=== PATIENT | female | born 1945 | race Caucasian/White ===

== ENCOUNTER → 2017-08-05 09:28 | Outpatient (CLI) | payer OTHER, SELFPAY ==
[2017-08-05 11:53] LABS: Add Manual Diff / Slide Review NO; Basophils Percent Auto 1.1 % (0-2); Eosinophils Percent Auto 2.6 % (2-4); Hematocrit 41.1 % (36-46); Hemoglobin 13.6 g/dL (12.0-16.0); Lymphocytes Percent Auto 17.6 % (25-40); Mean Corpuscular HGB Conc 33.1 % (30-36); Mean Corpuscular Hemoglobin 29.2 PG (26-34); Mean Corpuscular Volume 88.3 fL (80-100); Monocytes Percent Auto 7.5 % (3-14); Neutrophils Absolute Auto 3800 /uL (3000-5900); Neutrophils Percent Auto 71.2 % (50-75); Platelet Count 273 X10^3/uL (150-400); Red Blood Cell Count 4.66 X10^6/uL (4.0-5.2); Red Cell Distribution Width 14.2 % (11.6-14.8); White Blood Cell Count 5.4 X10^3/uL (4.5-11.0)
[2017-08-05 12:29] LABS: HEMOLYSIS < 15 (0-50); Iron 52 ug/dL (37-170)
[2017-08-05 12:40] LABS: Percent Iron Saturation 14 % (15-50); Total Iron Binding Capacity 359 ug/dL (265-497); Transferrin 300 mg/dL (206-381)
[2017-08-05 12:56] LABS: Thyroid Stimulating Hormone 3.01 uIU/mL (0.47-4.68)
[2017-08-05 13:02] LABS: Ferritin 19.4 ng/mL (11.1-264)
== END ==
PROVIDERS: PCP Family Medicine; Visit Provider Family Medicine
DX: C77.9 Secondary and unspecified malignant neoplasm of lymph node, unspecified (principal); C64.9 Malignant neoplasm of unspecified kidney, except renal pelvis; L65.9 Nonscarring hair loss, unspecified
CPT/HCPCS: 36415; 82728; 83540; 83550; 84443; 85025

== ENCOUNTER → 2017-10-11 11:18 | Outpatient (CLI) | payer OTHER, SELFPAY ==
[2017-10-11 13:24] LABS: Cholesterol 213 mg/dL (140-199); HDL Cholesterol 77 mg/dL (40-60); LDL Cholesterol Calculated 110 mg/dL (<100); Triglycerides 129 mg/dL (35-150)
== END ==
PROVIDERS: Family Provider Family Medicine; PCP Family Medicine; Visit Provider Family Medicine
DX: E78.2 Mixed hyperlipidemia (principal)
CPT/HCPCS: 36415; 80061

== ENCOUNTER → 2017-10-31 14:44 | Outpatient (CLI) | payer OTHER, SELFPAY | PROVIDERS: Family Provider Family Medicine; PCP Family Medicine; Visit Provider Family Medicine | DX: M85.851 Other specified disorders of bone density and structure, right thigh (principal); Z78.0 Asymptomatic menopausal state; E78.2 Mixed hyperlipidemia; E07.9 Disorder of thyroid, unspecified; Z87.81 Personal history of (healed) traumatic fracture | CPT/HCPCS: 77080 ==

== ENCOUNTER → 2018-01-08 12:53 | Outpatient (CLI) | payer OTHER, SELFPAY ==
[2018-01-08 14:04] LABS: Estimated Glomerular Filt Rate 44.4 mL/min (>60)
== END ==
PROVIDERS: Family Provider Family Medicine; PCP Family Medicine; Visit Provider Urology
DX: Z85.528 Personal history of other malignant neoplasm of kidney (principal)
CPT/HCPCS: 36415; 82565

== ENCOUNTER → 2018-01-10 10:01 | Outpatient (CLI) | payer OTHER, SELFPAY ==
--- NOTE | 2018-01-10 | DI.RAD.S_ITS ---
PROCEDURE: XR CHEST 2V INDICATIONS: HISTORY OF KIDNEY CANCER TECHNIQUE: 2 views of the chest were acquired. COMPARISON: None. FINDINGS: Surgical changes and devices: None. Lungs and pleura: No pleural effusions or pneumothorax. Lungs are clear. Mediastinum: Mediastinal contours are normal. Heart size is normal. Bones and chest wall: No suspicious bony abnormalities. Soft tissues appear unremarkable. IMPRESSION: A mass lesion is not found, normal for age. Dictated by: Hu Alcantar M.D. on 01/10/2018 at 11:31 Approved by: Hu Alcantar M.D. on 01/10/2018 at 11:31
--- NOTE | 2018-01-10 10:44 | DI.CT.S_ITS ---
PROCEDURE: CT ABDOMEN PELVIS W CON INDICATIONS: Left kidney cancer surveillance TECHNIQUE: After the administration of oral and intravenous contrast, 5 mm thick sections acquired from the diaphragms to the symphysis. 5 mm thick coronal and sagittal reformats were performed. For radiation dose reduction, the following was used: automated exposure control, adjustment of mA and/or kV according to patient size. COMPARISON: [facility], CT, ABDOMEN/PELVIS WITH CONTRAST, 06/10/2017, 9:28. [facility], CT, ABDOMEN/PELVIS WITH CONTRAST, 01/28/2017, 9:41. FINDINGS: Image quality: Excellent. ABDOMEN: Lung bases: Lung bases are clear. Heart size is normal. Solid organs: Liver is normal in size and enhancement. Gallbladder has been resected. Biliary system is non-dilated. Pancreas enhances normally. Spleen is normal in size and enhancement. No adrenal nodules. The right kidney is normal in size and enhancement, without hydronephrosis. The left kidney has been previously resected Peritoneum and bowel: Stomach, small bowel, and colon loops are normal in caliber and wall thickness. No free fluid or air. Nodes and vessels: No retroperitoneal or mesenteric adenopathy. Aorta and inferior vena cava are normal in caliber. Miscellaneous: No ventral hernias. PELVIS: Genitourinary: Bladder wall thickness is normal. Miscellaneous: No inguinal hernias or adenopathy. Bones: No suspicious bony lesions. No vertebral body compression fractures. IMPRESSION: Prior left nephrectomy and cholecystectomy, no sign of malignancy, normal appearing right kidney. Dictated by: Hu Alcantar M.D. on 01/10/2018 at 15:09 Approved by: Hu Alcantar M.D. on 01/10/2018 at 15:11
== END ==
PROVIDERS: PCP Family Medicine; Visit Provider Urology
DX: Z85.528 Personal history of other malignant neoplasm of kidney (principal); Z90.5 Acquired absence of kidney; Z90.49 Acquired absence of other specified parts of digestive tract
CPT/HCPCS: 71046; 74177; Q9967

== ENCOUNTER → 2018-05-05 11:59 | Outpatient (CLI) | payer OTHER, SELFPAY ==
--- NOTE | 2018-05-05 | DI.MG.S_ITS ---
BILATERAL DIGITAL SCREENING MAMMOGRAM 3D/2D WITH CAD: 05/05/2018 CLINICAL: Routine screening. Comparison is made to exams dated: 05/01/2017 mammogram, 04/02/2016 mammogram, and 03/31/2015 mammogram - [facility]. The tissue of both breasts is heterogeneously dense. This may lower the sensitivity of mammography. Current study was also evaluated with a Computer Aided Detection (CAD) system. There is a mole marker on both breasts. No significant masses, calcifications, or other findings are seen in either breast. There has been no significant interval change. IMPRESSION: NEGATIVE There is no mammographic evidence of malignancy. A 1 year screening mammogram is recommended. This exam was interpreted at Station ID: [id number]. NOTE: For mammograms, a report in lay terms will be sent to the patient. Approximately 15% of breast malignancies will not be visualized mammographically. In the management of a palpable breast mass, a negative mammogram must not discourage biopsy of a clinically suspicious lesion. Electronically Signed By: Mynor lubin/gege:05/05/2018 17:40:20 letter sent: Normal Exam ACR BI-RADS Category 1: Negative 3341F
== END ==
PROVIDERS: PCP Family Medicine; Visit Provider Family Medicine
DX: Z12.31 Encounter for screening mammogram for malignant neoplasm of breast (principal)
CPT/HCPCS: 77063; 77067

== ENCOUNTER → 2018-07-29 08:26 | Outpatient (CLI) | payer OTHER, SELFPAY ==
[2018-07-29 08:46] LABS: Add Manual Diff / Slide Review NO; Basophils Absolute Auto 0 /uL (0-100); Eosinophils Absolute Auto 100 /uL (0-450); Eosinophils Percent Auto 2.7 % (2-4); Hematocrit 38.9 % (36-46); Hemoglobin 12.8 g/dL (12.0-16.0); Lymphocytes Absolute Auto 1000 /uL (1100-4500); Lymphocytes Percent Auto 19.3 % (25-40); Mean Corpuscular HGB Conc 32.9 % (30-36); Monocytes Absolute Auto 400 /uL (0-900); Monocytes Percent Auto 7.9 % (3-14); Neutrophils Absolute Auto 3500 /uL (1500-7000); Neutrophils Percent Auto 69.1 % (50-75); Platelet Count 237 X10^3/uL (150-400); Red Blood Cell Count 4.42 X10^6/uL (4.0-5.2); Red Cell Distribution Width 13.5 % (11.6-14.8); White Blood Cell Count 5.1 X10^3/uL (4.5-11.0)
[2018-07-29 09:34] LABS: Alanine Aminotransferase 18 IU/L (9-52); Albumin 4.2 g/dL (3.5-5.0); Albumin Globulin Ratio 1.7 (1.0-2.8); Alkaline Phosphatase 48 U/L (38-126); Aspartate Aminotransferase 28 IU/L (14-36); BUN Creatinine Ratio 30.9 (6-22); Bilirubin Total 0.8 mg/dL (0.2-1.3); Blood Urea Nitrogen 34 mg/dL (7-17); Calcium 9.7 mg/dL (8.4-10.2); Carbon Dioxide 28 mmol/L (22-32); Chloride 106 mmol/L (98-107); Globulin 2.5 g/dL (1.7-4.1); Glucose 94 mg/dL (80-110); HEMOLYSIS 21 (0-50); Magnesium 2.2 mg/dL (1.6-2.3); Potassium 4.7 mmol/L (3.4-5.1); Sodium 141 mmol/L (137-145); Total Protein 6.7 g/dL (6.3-8.2)
[2018-07-29 09:40] LABS: Thyroid Stimulating Hormone 1.63 uIU/mL (0.47-4.68)
== END ==
PROVIDERS: PCP Family Medicine; Visit Provider Family Medicine
DX: E78.2 Mixed hyperlipidemia (principal); Z13.1 Encounter for screening for diabetes mellitus; Z13.6 Encounter for screening for cardiovascular disorders
CPT/HCPCS: 36415; 80053; 83735; 84443; 85025

== ENCOUNTER → 2018-10-24 10:14 | Outpatient (CLI) | payer OTHER, SELFPAY ==
[2018-10-24 11:11] LABS: Add Manual Diff / Slide Review NO; Basophils Absolute Auto 100 /uL (0-100); Basophils Percent Auto 0.9 % (0-2); Eosinophils Absolute Auto 400 /uL (0-450); Eosinophils Percent Auto 5.5 % (2-4); Hematocrit 39.9 % (36-46); Hemoglobin 13.1 g/dL (12.0-16.0); Lymphocytes Absolute Auto 1000 /uL (1100-4500); Mean Corpuscular HGB Conc 32.9 % (30-36); Mean Corpuscular Hemoglobin 28.8 PG (26-34); Mean Corpuscular Volume 87.5 fL (80-100); Monocytes Absolute Auto 500 /uL (0-900); Monocytes Percent Auto 7.2 % (3-14); Neutrophils Absolute Auto 4900 /uL (1500-7000); Neutrophils Percent Auto 71.4 % (50-75); Platelet Count 244 X10^3/uL (150-400); Red Blood Cell Count 4.56 X10^6/uL (4.0-5.2); Red Cell Distribution Width 13.5 % (11.6-14.8); White Blood Cell Count 6.9 X10^3/uL (4.5-11.0)
[2018-10-24 11:27] LABS: Alanine Aminotransferase 41 IU/L (9-52); Albumin 4.3 g/dL (3.5-5.0); Albumin Globulin Ratio 1.6 (1.0-2.8); Alkaline Phosphatase 53 U/L (38-126); Aspartate Aminotransferase 42 IU/L (14-36); Bilirubin Total 0.9 mg/dL (0.2-1.3); Blood Urea Nitrogen 36 mg/dL (7-17); Calcium 9.8 mg/dL (8.4-10.2); Carbon Dioxide 27 mmol/L (22-32); Chloride 104 mmol/L (98-107); Estimated Glomerular Filt Rate 44.3 mL/min (>60); Globulin 2.7 g/dL (1.7-4.1); Glucose 90 mg/dL (80-110); HEMOLYSIS < 15 (0-50); Lipase 342 U/L (23-300); Potassium 4.6 mmol/L (3.4-5.1); Sodium 142 mmol/L (137-145)
--- NOTE | 2018-10-24 14:04 | DI.CT.S_ITS ---
PROCEDURE: CT ABDOMEN PELVIS W CON INDICATIONS: Severe lower left abdominal pain, s/p left nephrectomy TECHNIQUE: After the administration of oral and intravenous contrast, 5 mm thick sections acquired from the diaphragms to the symphysis. 5 mm thick coronal and sagittal reformats were performed. For radiation dose reduction, the following was used: automated exposure control, adjustment of mA and/or kV according to patient size. COMPARISON: [facility], CT, CT ABDOMEN PELVIS W CON, 01/10/2018, 10:53. FINDINGS: Image quality: Excellent. ABDOMEN: Lung bases: Lung bases are clear. Heart size is normal. Solid organs: Liver is normal in size and enhancement. Gallbladder surgically absent. Biliary system is non-dilated. Pancreas enhances normally. Spleen is normal in size and enhancement. No adrenal nodules. Right kidney unremarkable without hydronephrosis. Left kidney absent. Peritoneum and bowel: Stomach, small bowel, and colon loops are normal in caliber and wall thickness. No free fluid or air. Normal appendix. No diverticulosis Nodes and vessels: No retroperitoneal or mesenteric adenopathy. Aorta and inferior vena cava are normal in caliber. Miscellaneous: No ventral hernias. PELVIS: Genitourinary: Bladder wall thickness is normal. Miscellaneous: No inguinal hernias or adenopathy. Bones: No suspicious bony lesions. No vertebral body compression fractures. Multilevel discogenic changes and spinal listhesis. Right inferior pubic ramus fracture with callus formation, chronic. IMPRESSION: Colonic diverticulosis. No evidence of acute inflammation. Normal appendix. Status post left nephrectomy. No hematoma identified. No abscess is seen. Elsewhere, no acute process. Dictated by: Jerzy Kan M.D. on 10/24/2018 at 15:49 Approved by: Jerzy Kan M.D. on 10/24/2018 at 15:54
== END ==
PROVIDERS: PCP Family Medicine; Visit Provider Family Medicine
DX: R10.32 Left lower quadrant pain (principal); Z90.5 Acquired absence of kidney; Z90.49 Acquired absence of other specified parts of digestive tract
CPT/HCPCS: 36415; 74177; 80053; 83690; 85025; Q9967

== ENCOUNTER → 2019-01-02 09:00 | Outpatient (CLI) | payer OTHER, SELFPAY ==
[2019-01-04 23:22] LABS: Adenovirus F 40/41 Not Detected (Not Detect); Astrovirus Not Detected (Not Detect); Campylobacter Not Detected (Not Detect); Clostridium difficile toxin AB Not Detected (Not Detect); Cryptosporidium Not Detected (Not Detect); Cyclospora cayetanensis Not Detected (Not Detect); Entamoeba histolytica Not Detected (Not Detect); Enteroaggregative E.coli Not Detected (Not Detect); Enteropathogenic E.coli Not Detected (Not Detect); Enterotoxigenic E.coli It/st Not Detected (Not Detect); Giardia lamblia Not Detected (Not Detect); Norovirus GI/GII Not Detected (Not Detect); Plesiomonsa shigelloides Not Detected (Not Detect); Rotavirus A Not Detected (Not Detect); Salmonella Not Detected (Not Detect); Sapovirus Not Detected (Not Detect); Shiga-like toxin-prod E.coli Not Detected (Not Detect); Shigella/Enteroinvasive E.coli Not Detected (Not Detect); Vibrio Not Detected (Not Detect); Vibrio cholerae Not Detected (Not Detect); Yersinia enterocolitica Not Detected (Not Detect)
== END ==
PROVIDERS: PCP Family Medicine; Referring Provider Family Medicine; Visit Provider Family Medicine
DX: K92.1 Melena (principal); R10.9 Unspecified abdominal pain
CPT/HCPCS: 87507

== ENCOUNTER → 2019-01-02 15:25 | Outpatient (CLI) | payer OTHER, SELFPAY ==
[2019-01-02 15:44] LABS: Add Manual Diff / Slide Review NO; Basophils Absolute Auto 100 /uL (0-100); Eosinophils Absolute Auto 100 /uL (0-450); Eosinophils Percent Auto 1.5 % (2-4); Hematocrit 39.3 % (36-46); Hemoglobin 13.2 g/dL (12.0-16.0); Lymphocytes Absolute Auto 1200 /uL (1100-4500); Lymphocytes Percent Auto 14.8 % (25-40); Mean Corpuscular HGB Conc 33.5 % (30-36); Mean Corpuscular Hemoglobin 29.2 PG (26-34); Mean Corpuscular Volume 87.2 fL (80-100); Monocytes Absolute Auto 600 /uL (0-900); Neutrophils Absolute Auto 6000 /uL (1500-7000); Neutrophils Percent Auto 75.7 % (50-75); Platelet Count 266 X10^3/uL (150-400); Red Cell Distribution Width 14.1 % (11.6-14.8); White Blood Cell Count 7.9 X10^3/uL (4.5-11.0)
[2019-01-02 15:56] LABS: Alanine Aminotransferase 29 IU/L (<35); Albumin 4.5 g/dL (3.5-5.0); Albumin Globulin Ratio 1.6 (1.0-2.8); Alkaline Phosphatase 62 U/L (38-126); Amylase 143 U/L (30-110); Aspartate Aminotransferase 35 IU/L (14-36); BUN Creatinine Ratio 18.6 (6-22); Bilirubin Total 0.7 mg/dL (0.2-1.3); Blood Urea Nitrogen 26 mg/dL (7-17); Carbon Dioxide 28 mmol/L (22-32); Chloride 104 mmol/L (98-107); Estimated Glomerular Filt Rate 37.1 mL/min (>60); Globulin 2.8 g/dL (1.7-4.1); Glucose 115 mg/dL (80-110); HEMOLYSIS < 15 (0-50); Lipase 290 U/L (23-300); Sodium 140 mmol/L (137-145); Total Protein 7.3 g/dL (6.3-8.2)
== END ==
PROVIDERS: PCP Family Medicine; Visit Provider Family Medicine
DX: K92.1 Melena (principal); R10.9 Unspecified abdominal pain
CPT/HCPCS: 36415; 80053; 82150; 83690; 85025

== ENCOUNTER → 2019-01-03 08:33 | Outpatient (CLI) | payer OTHER, SELFPAY | PROVIDERS: PCP Family Medicine; Visit Provider Family Medicine | DX: K92.1 Melena (principal); R10.9 Unspecified abdominal pain ==

== ENCOUNTER → 2019-01-22 07:50 | Outpatient (CLI) | payer OTHER, SELFPAY ==
--- NOTE | 2019-01-22 07:53 | DI.US.S_ITS ---
PROCEDURE: US ABDOMEN COMPLETE INDICATIONS: explosive diarrhea, elevated amylase TECHNIQUE: Real-time scanning was performed of the abdominal and retroperitoneal organs, with image documentation. COMPARISON: [facility], CT, CT ABDOMEN PELVIS W CON, 10/24/2018, 15:23. FINDINGS: Liver: Liver is normal in size and homogeneous in echotexture. Gallbladder: Surgically absent Biliary ducts: Intrahepatic bile ducts are non-dilated. Extrahepatic bile duct caliber measures 7 mm. Normal is 6-7 mm or less in diameter, or 10 mm or less post-cholecystectomy. Pancreas: Visualized portions of the pancreas are sonographically normal. Spleen: Spleen is normal in size and homogeneous in echotexture. Kidneys: The left kidney is surgically absent. The right kidney is normal in size and measures 9.7 cm in length. No hydronephrosis or focal right renal lesion is evident. No shadowing nephrolithiasis is present. No cystic or solid renal masses evident. The corticomedullary differentiation is well-maintained. Aorta: Visualized aorta is normal in caliber at less than 3 cm. Iliacs: Proximal common iliac arteries are normal in caliber at less than 2.5 cm. IVC: Intrahepatic inferior vena cava is patent. Miscellaneous: No free abdominal fluid. IMPRESSION: 1. Prominent common bile duct probably is within normal limits given the patient's cholecystectomy. If the liver function tests are persistently elevated or increasing, please consider MRCP for further evaluation. 2. Status post left nephrectomy. The right kidney is unremarkable. Dictated by: Vidal Regan M.D. on 01/22/2019 at 10:08 Approved by: Vidal Regan M.D. on 01/22/2019 at 10:13
== END ==
PROVIDERS: PCP Family Medicine; Visit Provider Nurse Practitioner Family
DX: R19.7 Diarrhea, unspecified (principal); R74.8 Abnormal levels of other serum enzymes; Z90.49 Acquired absence of other specified parts of digestive tract; Z90.5 Acquired absence of kidney
CPT/HCPCS: 76700

== ENCOUNTER → 2019-07-11 13:03 | Outpatient (CLI) | payer MEDICARE, SELFPAY ==
--- NOTE | 2019-07-11 | DI.MG.S_ITS ---
BILATERAL DIGITAL SCREENING MAMMOGRAM 3D/2D WITH CAD: 07/11/2019 CLINICAL: Routine screening. Comparison is made to exams dated: 05/05/2018 mammogram, 05/01/2017 mammogram, and 04/02/2016 mammogram - [facility]. There are scattered fibroglandular elements in both breasts. Current study was also evaluated with a Computer Aided Detection (CAD) system. There is a mole marker on both breasts. No significant masses, calcifications, or other findings are seen in either breast. There has been no significant interval change. IMPRESSION: NEGATIVE There is no mammographic evidence of malignancy. A 1 year screening mammogram is recommended. This exam was interpreted at Station ID: [id number]. NOTE: For mammograms, a report in lay terms will be sent to the patient. Approximately 15% of breast malignancies will not be visualized mammographically. In the management of a palpable breast mass, a negative mammogram must not discourage biopsy of a clinically suspicious lesion. Electronically Signed By: Dannie zamudio/gege:07/13/2019 08:12:43 letter sent: Normal Exam ACR BI-RADS Category 1: Negative 3341F
== END ==
PROVIDERS: PCP Family Medicine; Referring Provider Family Medicine; Visit Provider Family Medicine
DX: Z12.31 Encounter for screening mammogram for malignant neoplasm of breast (principal)
CPT/HCPCS: 77063; 77067

== ENCOUNTER → 2019-11-04 14:17 | Outpatient (CLI) | payer MEDICARE, SELFPAY ==
--- NOTE | 2019-11-04 14:18 | DI.RAD.S_ITS ---
PROCEDURE: XR DEXA AXIAL SKELETON INDICATIONS: history of fractures; post-menopausal COMPARISON: [facility], CR, XR DEXA AXIAL SKELETON, 10/31/2017, 15:17. FINDINGS: This blank DEXA report has been sent in error by the PACS system. The correct and complete report will be forthcoming in 1-2 days. Thank you for your patience and understanding. Dictated by: Romelia Juarze MD, PhD on 11/04/2019 at 16:28 Approved by: Romelia Juarez MD, PhD on 11/04/2019 at 16:29
== END ==
PROVIDERS: PCP Family Medicine; Referring Provider Family Medicine; Visit Provider Family Medicine
DX: M85.851 Other specified disorders of bone density and structure, right thigh (principal); Z78.0 Asymptomatic menopausal state; E07.9 Disorder of thyroid, unspecified; N28.9 Disorder of kidney and ureter, unspecified
CPT/HCPCS: 77080

== ENCOUNTER → 2020-02-29 13:44 | Outpatient (CLI) | payer MEDICARE, SELFPAY ==
--- NOTE | 2020-02-29 13:46 | DI.CT.S_ITS ---
PROCEDURE: CT KIDNEY URETER BLADDER (KUB) INDICATIONS: h/o renal ca, mild ckd, and microhematuria TECHNIQUE: Noncontrast 5 mm thick sections acquired from the diaphragms to the symphysis. 5 mm thick coronal and sagittal reformats were then performed. For radiation dose reduction, the following was used: automated exposure control, adjustment of mA and/or kV according to patient size. COMPARISON: [facility], CT, CT ABDOMEN PELVIS W CON, 10/24/2018, 15:23. FINDINGS: Image quality: Excellent. Lung bases: Lung bases are clear. Heart size is normal. Urinary system: Left kidney is surgically absent. No soft tissue mass is seen within left renal fossa. Right kidney is normal in size. No kidney stones. No hydronephrosis or perinephric fat stranding. Both ureters appear non-dilated throughout their expected courses. Bladder wall thickness is normal; no calcified bladder stones. Other solid organs: Liver is normal in size. Gallbladder is surgically absent. Pancreas is normal in contours. Spleen is normal in size. No adrenal nodules. Peritoneum and bowel: Unenhanced bowel loops demonstrate normal wall thickness and caliber. No free fluid or air. Colonic diverticulosis is again seen, no CT evidence of acute diverticulitis. Nodes and vessels: No retroperitoneal or mesenteric adenopathy by size criteria. Aorta and inferior vena cava are normal in caliber. Mild atherosclerotic calcifications throughout abdominal aorta is seen. Abdominal wall: No ventral hernias. Pelvis: No free pelvic fluid. No inguinal hernias or adenopathy. Uterus and bilateral adnexa show no gross abnormality. Bones: No suspicious bony lesions. No vertebral body compression fractures. Old healed fractures involving right inferior pubic ramus is seen. IMPRESSION: 1. Prior left nephrectomy. No soft tissue mass is seen in left renal fossa. 2. Normal appearing right kidney. No hydronephrosis. 3. No acute inflammatory process is seen in abdomen or pelvis. Dictated by: Diego Torres M.D. on 02/29/2020 at 14:07 Approved by: Diego Torres M.D. on 02/29/2020 at 14:15
== END ==
PROVIDERS: PCP Family Medicine; Referring Provider Specialist; Visit Provider Specialist
DX: N18.9 Chronic kidney disease, unspecified (principal); R31.29 Other microscopic hematuria; Z85.528 Personal history of other malignant neoplasm of kidney; Z90.5 Acquired absence of kidney
CPT/HCPCS: 74176

== ENCOUNTER → 2020-03-02 13:18 | Outpatient (CLI) | payer MEDICARE, SELFPAY ==
[2020-03-02 13:43] LABS: COVID19 -Nasal RAPID Negative (Negative)
== END ==
PROVIDERS: PCP Family Medicine; Visit Provider Specialist
DX: Z20.822 Contact with and (suspected) exposure to COVID-19 (principal)
CPT/HCPCS: 87635; C9803

== ENCOUNTER 2020-03-04 06:42 | Day surgery (SDC) | payer MEDICARE, SELFPAY ==
[2020-03-04] VITALS (7 sets, daily range): BP systolic 106–124; BP diastolic 51–77; PULSE 70–87; RESP 14–16; TEMP 35.8–36.5; O2SAT 95–98; BMI 15.9
--- NOTE | 2020-03-04 | DI.RAD.S_ITS ---
PROCEDURE: XR ABDOMEN MIN 2V INDICATIONS: RETROPYELOGRAM TECHNIQUE: 2 views of the abdomen were acquired. COMPARISON: [facility], CT, CT KIDNEY URETER BLADDER (KUB), 02/29/2020, 13:44. FINDINGS: Surgical changes and devices: Prior left nephrectomy. Prior cholecystectomy, with right upper quadrant cholecystectomy clips superimposed on the right renal collecting system. No mass within the collecting system or ureter is seen.,. Bowel: No pneumoperitoneum. The bowel gas pattern is normal. Soft tissues: No masses; visualized solid organ contours appear normal in size. No suspicious abdominal calcifications. Bones: No suspicious bony abnormalities. IMPRESSION: Prior left nephrectomy, normal right-sided retrograde evaluation. Dictated by: Hu Alcantar M.D. on 03/04/2020 at 14:55 Approved by: Hu Alcantar M.D. on 03/04/2020 at 14:58
[2020-03-04] MEDS: LACTATED RINGERS 1,000 ML 42 ML IV (07:28)
--- NOTE | 2020-03-04 07:47 | PM.PREOP ---
Pre-operative Note Interval Note History & Physical reviewed/Exam performed by Physician: Yes Changes to H&P: No
[2020-03-04] MEDS: CEFAZOLIN 2 GM/100 ML FROZ.PIGGY IV (07:50)
--- NOTE | 2020-03-04 08:12 | SUR.OPER ---
Lithotomy on padded OR bed, head on pillow, arms secured on padded arm boards at <90 degrees abduction. Legs secured in padded yellow fins stirrups.
[2020-03-04] MEDS: IOPAMIDOL 15 ML VIAL INJ (08:17)
[2020-03-04] MEDS: BELLADONNA/OPIUM SUPPOSITORIES 1 EACH PR (08:20)
--- NOTE | 2020-03-04 08:28 | PM.OP.1 ---
Operative Date/Time/Diagnoses Date of procedure: 03/04/20 Time of procedure: 08:28 Pre-op diagnosis: 1. Microscopic hematuria 2. CKD 3. Acquired solitary right kidney Post-op diagnosis: same Procedure & Clinicians Procedure: 1. Cystoscopy and bilateral retrograde pyelography Same procedure as scheduled: Yes Indications: 1. Microscopic hematuria 2. CKD 3. Acquired solitary right kidney Surgeon: Cm Mitchell Click Yes if Unassisted: Yes Anesthesia Type: General Operative Notes Findings: 1. Moderately severe atrophic vaginitis 2. Moderate size urethral caruncle 3. Normal urethral caliber 4. 1+ bladder trabeculation with normal appearing ureteral orifices bilaterally 5. Bilateral retrograde pyelography was without filling defect stricture or mass. Closure Type: primary Specimen(s): none sent Estimated Blood Loss (mL): 0 Blood products transfused: none Tourniquet time (min): 0 Procedure in detail: Patient was positioned in supine was administered general anesthesia. She was then repositioned semi lithotomy and the lower abdomen, genitalia, and groin were then prepped and draped in sterile fashion the 22 [place] panendoscope was passed lower urinary tract with findings as described above. A 4 [place] whistle-tip catheter was then prepared and successive left followed by right retrograde pyelography was performed. [place] images were retained for interpretation an entry in the EHR. The bladder was then drained completely and all instrumentation was removed. The patient was then repositioned in supine, awakened, and transferred to the recovery room in stable condition. Complications: none Post-operative Condition: stable Disposition: PACU Plan for aftercare: Discharge home
== END 2020-03-04 09:32 | disposition home or self-care (01) ==
PROVIDERS: PCP Family Medicine; Referring Provider Specialist; Visit Provider Specialist
PROC: (CPT 52005; principal; 2020-03-04 07:45)
DX: R31.9 Hematuria, unspecified (principal); N18.9 Chronic kidney disease, unspecified; Z85.528 Personal history of other malignant neoplasm of kidney; N95.2 Postmenopausal atrophic vaginitis; N36.2 Urethral caruncle
CPT/HCPCS: 52005; 74019; 76000; 82962; J0690; J1100; J2405; J2704; J3010

== ENCOUNTER → 2020-03-18 08:14 | Outpatient (CLI) | payer MEDICARE, SELFPAY ==
[2020-03-18 08:21] LABS: Bacteria Urine None Seen; RBC Urine None Seen (0-5/HPF); WBC Urine None Seen (0-5/HPF)
[2020-03-18 08:47] LABS: Appearance Urine UA CLEAR; Bilirubin Urine UA NEGATIVE (NEGATIVE); Color Urine UA YELLOW; Glucose Urine UA NEGATIVE (Negative); Ketones Urine UA NEGATIVE (NEGATIVE); Leukocyte Esterase Urine UA NEGATIVE (NEGATIVE); Nitrite Urine UA NEGATIVE (Negative); Occult Blood Urine UA TRACE-INTACT (Negative); Protein Urine UA NEGATIVE (Negative); Urobilinogen Urine UA 0.2 E.U./dL (0.2)
[2020-03-18 08:53] LABS: Alanine Aminotransferase 18 IU/L (<35); Albumin 4.2 g/dL (3.5-5.0); Albumin Globulin Ratio 1.6 (1.0-2.8); Alkaline Phosphatase 55 U/L (38-126); Aspartate Aminotransferase 28 IU/L (14-36); BUN Creatinine Ratio 22.9 (6-22); Bilirubin Total 1.2 mg/dL (0.2-1.3); Blood Urea Nitrogen 27 mg/dL (7-17); Calcium 9.4 mg/dL (8.4-10.2); Carbon Dioxide 33 mmol/L (22-32); Chloride 105 mmol/L (98-107); Cholesterol 203 mg/dL (140-199); Globulin 2.7 g/dL (1.7-4.1); Glucose 93 mg/dL (80-110); HDL Cholesterol 60 mg/dL (40-60); HEMOLYSIS < 15 (0-50); LDL Cholesterol Calculated 112 mg/dL (<100); Potassium 4.4 mmol/L (3.4-5.1); Sodium 141 mmol/L (137-145); Total Protein 6.9 g/dL (6.3-8.2); Triglycerides 153 mg/dL (35-150)
[2020-03-18 09:00] LABS: Culture Indicated Urine Cult Not Indicated; Urine Comments Microscopic Normal
[2020-03-18 09:13] LABS: Hematocrit 39.8 % (36-46); Hemoglobin 13.1 g/dL (12.0-16.0); Mean Corpuscular Volume 87.9 fL (80-100); Platelet Count 216 X10^3/uL (150-400); Red Blood Cell Count 4.53 X10^6/uL (4.0-5.2); Red Cell Distribution Width 13.5 % (11.6-14.8); White Blood Cell Count 8.4 X10^3/uL (4.5-11.0)
[2020-03-18 09:22] LABS: Thyroid Stimulating Hormone 1.28 uIU/mL (0.47-4.68)
== END ==
PROVIDERS: PCP Nurse Practitioner Family; Referring Provider Nurse Practitioner Family; Visit Provider Nurse Practitioner Family
DX: E03.9 Hypothyroidism, unspecified (principal); E78.2 Mixed hyperlipidemia; Z85.528 Personal history of other malignant neoplasm of kidney; Z90.5 Acquired absence of kidney
CPT/HCPCS: 36415; 80053; 80061; 81001; 84443; 85027

== ENCOUNTER → 2020-07-18 10:55 | Outpatient (CLI) | payer MEDICARE, SELFPAY ==
--- NOTE | 2020-07-18 10:56 | DI.MG.S_ITS ---
BILATERAL DIGITAL SCREENING MAMMOGRAM 3D/2D WITH CAD: 07/18/2020 CLINICAL: Routine screening. Comparison is made to exams dated: 07/11/2019 mammogram, 05/05/2018 mammogram, and 05/01/2017 mammogram - [facility]. There are scattered fibroglandular elements in both breasts. Current study was also evaluated with a Computer Aided Detection (CAD) system. There is a mole marker on both breasts. No significant masses, calcifications, or other findings are seen in either breast. There has been no significant interval change. IMPRESSION: NEGATIVE There is no mammographic evidence of malignancy. A 1 year screening mammogram is recommended. This exam was interpreted at Station ID: [id number]. NOTE: For mammograms, a report in lay terms will be sent to the patient. Approximately 15% of breast malignancies will not be visualized mammographically. In the management of a palpable breast mass, a negative mammogram must not discourage biopsy of a clinically suspicious lesion. Electronically Signed By: Dannie zamudio/gege:07/18/2020 12:51:49 letter sent: Normal Exam ACR BI-RADS Category 1: Negative 3341F
== END ==
PROVIDERS: PCP Nurse Practitioner Family; Referring Provider Nurse Practitioner Family; Visit Provider Nurse Practitioner Family
DX: Z12.31 Encounter for screening mammogram for malignant neoplasm of breast (principal); Z12.39 Encounter for other screening for malignant neoplasm of breast
CPT/HCPCS: 77063; 77067

== ENCOUNTER → 2020-08-03 08:52 | Outpatient (CLI) | payer MEDICARE, SELFPAY ==
[2020-08-03 09:48] LABS: BUN Creatinine Ratio 21.3 (6-22); Blood Urea Nitrogen 27 mg/dL (7-17); Calcium 9.5 mg/dL (8.4-10.2); Carbon Dioxide 29 mmol/L (22-32); Chloride 107 mmol/L (98-107); Cholesterol 187 mg/dL (140-199); Estimated Glomerular Filt Rate 41.2 mL/min (>60); Glucose 87 mg/dL (80-110); HDL Cholesterol 66 mg/dL (40-60); HEMOLYSIS < 15 (0-50); LDL Cholesterol Calculated 100 mg/dL (<100); Magnesium 2.2 mg/dL (1.6-2.3); Potassium 4.4 mmol/L (3.4-5.1); Sodium 141 mmol/L (137-145); Triglycerides 104 mg/dL (35-150)
== END ==
PROVIDERS: PCP Nurse Practitioner Family; Referring Provider Internal Medicine Cardiovascular Disease; Visit Provider Internal Medicine Cardiovascular Disease
DX: I44.7 Left bundle-branch block, unspecified (principal); I49.3 Ventricular premature depolarization; E78.5 Hyperlipidemia, unspecified; E03.9 Hypothyroidism, unspecified
CPT/HCPCS: 36415; 80048; 80061; 83735

== ENCOUNTER → 2020-08-06 09:12 | Outpatient (CLI) | payer MEDICARE, SELFPAY ==
[2020-08-06 11:34] LABS: COVID19 -Nasal RAPID Negative (Negative)
== END ==
PROVIDERS: PCP Nurse Practitioner Family; Referring Provider Physician Assistant; Visit Provider Physician Assistant
DX: Z01.812 Encounter for preprocedural laboratory examination (principal); Z20.822 Contact with and (suspected) exposure to COVID-19
CPT/HCPCS: 87635; C9803

== ENCOUNTER → 2020-08-08 10:44 | Outpatient (CLI) | payer MEDICARE, SELFPAY ==
--- NOTE | 2020-08-08 15:03 | PM.TREADMILL ---
Cardiac Stress Test Report Referral & Results Date Patient Seen: 08/08/20 Time Patient Seen: 15:04 Requesting provider: Garry Ambrosio Indication: LBBB Rest ECG: sinus rhtyhm with LBBB with PVC Procedure Note: After Lexiscan injection had minimal dyspnea but no chest pain No significant EKG changes after Lexiscan injection Occasional PVCs Impression: Normal Lexiscan stress test Nuclear images pending Please note: Actual ECG tracings can be found in the PACS system.
--- NOTE | 2020-08-08 18:19 | DI.NM.S_ITS ---
DATE OF SERVICE: 08/08/2020 PROCEDURE: Pharmacological perfusion study. INDICATIONS: Left bundle branch block, PVCs. RADIOPHARMACEUTICAL: 25.6 millicurie technetium-99m Myoview IV was injected at stress and 12.4 millicurie technetium-99m Myoview IV was injected at rest. This was a one day study only. CARDIAC STRESS: The patient underwent IV Lexiscan perfusion study under the supervision of an attending staff. Baseline rhythm was sinus with left bundle branch block. During stress, there were no new convincing ischemic changes. There were secondary repolarization changes. PVCs were seen without any obvious ventricular tachycardia. RAW DATA: There is significant breast shadow seen. There is increased subdiaphragmatic activity as well. Resting LV ejection fraction 63 percent and stress LV ejection fraction 75 percent. No obvious wall motion abnormalities. Resting end-diastolic volume 107 mL. TID ratio 0.94, which is within normal limits. Lung/heart ratio 0.29, which is within normal limits. MYOCARDIAL PERFUSION: 1. Please note ,this patient does not have any prone images. Stress supine and resting supine images were compared to each other. The patient has predominantly fixed, moderate size, moderate to severely decreased perfusion of anteroseptum, as well as moderate to severely decreased perfusion of base to mid inferoseptum. 2. The patient has moderate size, moderate to severely decreased perfusion of base to mid inferior wall with slight reversibility in the mid inferior wall area. 3. There was small size, mildly decreased perfusion of the anterior wall and anteroapex without any significant reversibility. CONCLUSION: I will call this study an abnormal myocardial perfusion study with predominantly fixed septal defect and anterior wall anteroapical defect as stated above, as well as basal to mid inferior wall defect with partial reversibility of mid inferior wall defect. The patient has underlying left bundle branch block. On raw data, there is significant breast shadow, as well as increased subdiaphragmatic activity. On gated study, LV function is preserved and no obvious wall motion abnormalities, which goes against the diagnosis of transmural myocardial infarction. Suspect septal defect due to left bundle branch block. Anterior wall and anteroapical defect due to breast tissue attenuation artifact and there is increased subdiaphragmatic activity causing inferior wall defect, as well. There are no prone images, which can clearly distinguish artifact versus nontransmural myocardial infarction. Overall ischemic burden is very small in the mid inferior wall. Overall, coronary artery disease cannot be ruled out in this study. Correlate clinically. HinojosaChantelle - ANDREW/jaelyn/norma doc#: [id number]/job#: [id number] dd: 08/08/2020 17:18:00 dt: 08/08/2020 17:34:00 DICTATING MD/COPIES TO: Garry Ambrosio MD COPIES MNE: EMI;
== END ==
PROVIDERS: PCP Nurse Practitioner Family; Referring Provider Internal Medicine Cardiovascular Disease; Visit Provider Internal Medicine Cardiovascular Disease
DX: R94.39 Abnormal result of other cardiovascular function study (principal); I44.7 Left bundle-branch block, unspecified; I49.3 Ventricular premature depolarization
CPT/HCPCS: 78452; 93017; A9502; J2785

== ENCOUNTER → 2020-08-12 14:45 | Outpatient (CLI) | payer MEDICARE, SELFPAY ==
--- NOTE | 2020-08-12 14:45 | DI.ECHO.S_ITS ---
[facility] +---------+ : : [address] : : : : [id number] : : : : Phone: [phone]+ Echocardiogram Report + + :Name: TIESHA ARIAS Study Date: 08/12/2020 Height: 66 in : :[facility] : Weight: 147 lb : : Gender: Female BSA: 1.8 m2 : :: 1945 Age: 75 yrs BP: 141/85 mmHg: :Reason For Study: LBBB : :Ordering Physician: Bogdan : :Lola Browning Performed By: Jose Luis Reaves : :Referring: BOGDAN BROWNING : + + Interpretation Summary The left ventricle is normal in size. The ejection fraction is estimated to be 40-45%. There is mild to moderate global hypokinesis of the left ventricle. The right ventricle is normal in size and function. No significant valvular pathology seen. The IVC is of normal diameter and collapses greater than 50% with a sniff. This suggests a low right atrial pressure of 3 mm Hg. Moderate atherosclerotic plaque(s) in the aortic arch. Procedure: A two-dimensional transthoracic echocardiogram with color flow and Doppler was performed. The study quality was technically adequate. There is no prior echocardiogram noted for this patient. The patient was in sinus rhythm with heart rates between 64-81 bpm during the exam. The patient had a bundle branch block rhythm during the exam. The patient had frequent PVCs during the exam. Left Ventricle: The left ventricle is normal in size. Proximal septal thickening is noted. There is no thrombus. Trabeculae near apex are visualized. No thrombus is observed. The ejection fraction is estimated to be 40-45%. There is mild to moderate global hypokinesis of the left ventricle. Septal motion is consistent with conduction abnormality. Diastolic parameters suggest a relaxation abnormality of the left ventricle, consistent with probable normal filling pressures. Right Ventricle: The right ventricle is normal in size and function. Atria: Both atria are normal in size. In subcostal view, an artifact seen in the right atrium. There is no Doppler evidence for an interatrial shunt. Mitral Valve: The mitral valve leaflets are slightly calcified. There is trace mitral regurgitation. Aortic Valve: The aortic valve is trileaflet. The aortic valve opens well. The aortic valve is slightly calcified. There is no aortic valve stenosis. No aortic regurgitation is present. Tricuspid Valve: The tricuspid valve is normal in structure and function. Pulmonary artery pressures cannot be estimated because of the lack of a measurable TR jet velocity but the IVC suggests a CVP of around 3 mmHg. There is trace tricuspid regurgitation. Pulmonic Valve: The pulmonic valve is not well visualized. Great Vessels: The aortic root is normal size. The ascending aorta could not be visualized. Moderate atherosclerotic plaque(s) in the aortic arch. The IVC is of normal diameter and collapses greater than 50% with a sniff. This suggests a low right atrial pressure of 3 mm Hg. Pericardium/ Pleura There is no pericardial effusion. There is no pleural effusion. MMode/2D Measurements & Calculations LVIDd: 5.1 cm LVOT diam: 2.1 cm LVIDs: 3.7 cm Ao root diam: 3.0 cm FS: 26.5 % IVSd: 0.94 cm LVPWd: 0.87 cm LV hawkins. diameter/BSA (cm/m^2): 2.9 LV sys. diameter/BSA (cm/m^2): 2.1 LA A4 area: 12.0 cm2 RA long axis: 3.6 cm LA length (vol): 3.5 cm RA area: 9.1 cm2 RA vol: 19.4 ml RA : 11.1 ml/m2 TAPSE: 2.1 cm Doppler Measurements & Calculations Ao V2 max: 96.0 cm/sec LVOT Max Deep: 74.5 cm/sec Ao V2 mean: 71.0 cm/sec LV V1 max P.2 mmHg Ao max P.7 mmHg LV V1 VTI: 15.0 cm Ao mean P.2 mmHg ROEL(I,D): 2.5 cm2 Ao V2 VTI: 20.4 cm ROEL(V,D): 2.7 cm2 sev ratio: 0.73 ROEL indexed to BSA (cm^2/m^2): 1.4 MV E max deep: 57.0 cm/sec SV(LVOT): 51.2 ml MV A max deep: 105.3 cm/sec MV E/A: 0.54 Med Peak E' Deep: 4.4 cm/sec E/E' med: 12.8 Lat Peak E' Deep: 5.9 cm/sec E/E' lat: 9.6 E/e' average: 11.2 MV dec time: 0.24 sec Reading Physician:01:03 PM
== END ==
PROVIDERS: PCP Nurse Practitioner Family; Referring Provider Internal Medicine Cardiovascular Disease; Visit Provider Internal Medicine Cardiovascular Disease
DX: I44.7 Left bundle-branch block, unspecified (principal); I70.0 Atherosclerosis of aorta
CPT/HCPCS: 93306

== ENCOUNTER → 2020-08-31 07:29 | Outpatient (CLI) | payer MEDICARE, SELFPAY ==
[2020-08-31 08:48] LABS: Blood Urea Nitrogen 25 mg/dL (7-17); Calcium 9.8 mg/dL (8.4-10.2); Carbon Dioxide 27 mmol/L (22-32); Chloride 106 mmol/L (98-107); Cholesterol 129 mg/dL (140-199); Glucose 91 mg/dL (80-110); HDL Cholesterol 69 mg/dL (40-60); HEMOLYSIS < 15 (0-50); LDL Cholesterol Calculated 44 mg/dL (<100); Potassium 4.5 mmol/L (3.4-5.1); Sodium 141 mmol/L (137-145); Triglycerides 82 mg/dL (35-150)
== END ==
PROVIDERS: PCP Nurse Practitioner Family; Referring Provider Internal Medicine Cardiovascular Disease; Visit Provider Internal Medicine Cardiovascular Disease
DX: I44.7 Left bundle-branch block, unspecified (principal); I51.9 Heart disease, unspecified; I70.90 Unspecified atherosclerosis
CPT/HCPCS: 36415; 80048; 80061

== ENCOUNTER → 2020-12-26 09:00 | Outpatient (CLI) | payer MEDICARE, SELFPAY ==
[2020-12-26 10:33] LABS: Appearance Urine UA CLEAR; Bilirubin Urine UA NEGATIVE (NEGATIVE); Color Urine UA YELLOW; Glucose Urine UA NEGATIVE (Negative); Ketones Urine UA NEGATIVE (NEGATIVE); Leukocyte Esterase Urine UA NEGATIVE (NEGATIVE); Nitrite Urine UA NEGATIVE (Negative); Occult Blood Urine UA 1+ (Negative); Protein Urine UA NEGATIVE (Negative); Specific Gravity Urine UA 1.015 (1.000-1.035); Urobilinogen Urine UA 0.2 E.U./dL (0.2)
[2020-12-26 10:35] LABS: pH Urine UA 5.5 (4.5-8.0)
[2020-12-26 10:38] LABS: Bacteria Urine None Seen; Culture Indicated Urine Cult Not Indicated; RBC Urine 1-5/HPF (0-5/HPF); WBC Urine None Seen (0-5/HPF)
[2020-12-26 10:39] LABS: Add Manual Diff / Slide Review NO; Basophils Absolute Auto 0 /uL (0-100); Basophils Percent Auto 0.9 % (0-2); Eosinophils Absolute Auto 100 /uL (0-450); Eosinophils Percent Auto 2.2 % (2-4); Hematocrit 38.9 % (36-46); Lymphocytes Absolute Auto 1000 /uL (1100-4500); Lymphocytes Percent Auto 17.9 % (25-40); Mean Corpuscular HGB Conc 33.4 % (30-36); Mean Corpuscular Hemoglobin 29.4 PG (26-34); Mean Corpuscular Volume 88.1 fL (80-100); Monocytes Absolute Auto 500 /uL (0-900); Monocytes Percent Auto 8.4 % (3-14); Neutrophils Absolute Auto 4000 /uL (1500-7000); Neutrophils Percent Auto 70.6 % (50-75); Platelet Count 208 X10^3/uL (150-400); Red Blood Cell Count 4.42 X10^6/uL (4.0-5.2); Red Cell Distribution Width 13.5 % (11.6-14.8); White Blood Cell Count 5.6 X10^3/uL (4.5-11.0)
[2020-12-26 11:14] LABS: Creatinine Urine Random 95.9 mg/dL
[2020-12-26 11:15] LABS: BUN Creatinine Ratio 16.7 (6-22); Blood Urea Nitrogen 23 mg/dL (7-17); Calcium 9.7 mg/dL (8.4-10.2); Carbon Dioxide 28 mmol/L (22-32); Chloride 104 mmol/L (98-107); Cholesterol 143 mg/dL (140-199); Estimated Glomerular Filt Rate 37.5 mL/min (>60); Glucose 83 mg/dL (80-110); HDL Cholesterol 69 mg/dL (40-60); HEMOLYSIS < 15 (0-50); LDL Cholesterol Calculated 56 mg/dL (<100); Magnesium 2.2 mg/dL (1.6-2.3); Phosphorous 3.9 mg/dL (2.8-4.1); Potassium 4.9 mmol/L (3.4-5.1); Sodium 140 mmol/L (137-145); Triglycerides 90 mg/dL (35-150); Uric Acid 7.3 mg/dL (2.5-6.2)
[2020-12-26 11:18] LABS: Microalbumi Creatinin Ratio Ur 7.2 ug/mg CR (<30); Microalbumin Urine Random 0.7 mg/dL (0-1.6)
[2020-12-26 11:30] LABS: Vitamin D 25 Hydroxy (D3) 55.2 ng/mL (30.0-100.0)
[2020-12-27 08:10] LABS: Parathyroid Hormone Int 65 pg/mL (15-65)
== END ==
PROVIDERS: PCP Nurse Practitioner Family; Referring Provider Internal Medicine Nephrology; Visit Provider Internal Medicine Nephrology
DX: N18.31 Chronic kidney disease, stage 3a (principal); I70.90 Unspecified atherosclerosis
CPT/HCPCS: 36415; 80048; 80061; 81001; 82043; 82306; 82570; 83735; 83970; 84100; 84550; 85025

== ENCOUNTER → 2021-01-09 09:15 | Outpatient (CLI) | payer MEDICARE, SELFPAY ==
[2021-01-09 13:10] LABS: Blood Urea Nitrogen 25 mg/dL (7-17); Calcium 9.6 mg/dL (8.4-10.2); Carbon Dioxide 28 mmol/L (22-32); Chloride 105 mmol/L (98-107); Estimated Glomerular Filt Rate 37.2 mL/min (>60); Glucose 72 mg/dL (80-110); HEMOLYSIS < 15 (0-50); Potassium 4.6 mmol/L (3.4-5.1); Sodium 140 mmol/L (137-145)
== END ==
PROVIDERS: PCP Nurse Practitioner Family; Referring Provider Internal Medicine Nephrology; Visit Provider Internal Medicine Nephrology
DX: N18.32 Chronic kidney disease, stage 3b (principal)
CPT/HCPCS: 36415; 80048

== ENCOUNTER → 2021-02-16 13:54 | Outpatient (CLI) | payer MEDICARE, SELFPAY ==
--- NOTE | 2021-02-16 13:56 | DI.US.S_ITS ---
PROCEDURE: US PERIPH VENOUS LOW EXTREM RT INDICATIONS: RIGHT medial ankle tenderness, swelling TECHNIQUE: Real-time imaging, as well as color and pulse Doppler interrogation, were performed of the lower extremity deep veins from the inguinal ligament to the popliteal fossa. COMPARISON: None. FINDINGS: The common femoral, femoral and popliteal veins are normally compressible, and free of intraluminal thrombus. Color and pulse Doppler demonstrate normal phasic intraluminal flow. There is normal augmentation response to distal compression maneuver. IMPRESSION: 1. No evidence of DVT in the right lower extremity. Dictated by: Neeta Thomas M.D. on 02/16/2021 at 14:29 Approved by: Neeta Thomas M.D. on 02/16/2021 at 14:30
== END ==
PROVIDERS: PCP Nurse Practitioner Family; Referring Provider Physician Assistant; Visit Provider Physician Assistant
DX: M25.571 Pain in right ankle and joints of right foot (principal); M25.471 Effusion, right ankle
CPT/HCPCS: 93971

== ENCOUNTER → 2021-04-06 10:01 | Outpatient (CLI) | payer MEDICARE, SELFPAY ==
--- NOTE | 2021-04-06 | DI.ECHO.S_ITS ---
[place]---------+ [facility] +---------+ : : [address] : [address] : : : : [id number] : : : : Phone: [phone]---------+ Echocardiogram Report + + :Name: TIESHA ARIAS Study Date: 04/06/2021 Height: 65.5 in: :[facility] ReadingLocation: Weight: 154 lb : : Gender: Female BSA: 1.8 m2 : :: 1945 Age: 76 yrs BP: 113/60 mmHg: :Reason For Study: LV dysfunction : :Ordering Physician: : :KOKO Performed By: Aniceto De Souza : :Referring: BOGDAN BROWNING : + + Interpretation Summary The left ventricle is normal in size. The ejection fraction is estimated to be 45-50%. Previous LVEF 40 to 45%. Base of the RV appears to be mildly dilated. Overall RV function is preserved. The IVC is of normal diameter and collapses greater than 50% with a sniff. This suggests a low right atrial pressure of 3 mm Hg. Procedure: A two-dimensional transthoracic echocardiogram with color flow and Doppler was performed in limited views only to assess LVEF, LV diastolic function and filling pressures. The study quality was technically adequate. Comparison is made with the echocardiogram of 08/12/2020. Most of the acoustic windows were suboptimal, but the best imaging was obtained from the apical window. The patient had a bundle branch block rhythm during the exam. The patient was in normal sinus rhythm during the exam. Left Ventricle: The left ventricle is normal in size. Proximal septal thickening is noted. There is no thrombus. The ejection fraction is estimated to be 45-50%. Septal motion is consistent with conduction abnormality. There is septal wall hypokinesis. Diastolic parameters suggest a relaxation abnormality of the left ventricle, consistent with probable normal filling pressures. Right Ventricle: Base of the RV appears to be mildly dilated. Overall RV function is preserved. Tricuspid Valve: The tricuspid valve is not well visualized. There is trace tricuspid regurgitation. Great Vessels: The IVC is of normal diameter and collapses greater than 50% with a sniff. This suggests a low right atrial pressure of 3 mm Hg. Pericardium/ Pleura There is no pericardial effusion. There is an anterior echo-free space consistent with a fat pad. There is no pleural effusion. MMode/2D Measurements & Calculations IVC diam: 1.5 cm LVLs ap4: 5.0 cm LVLd ap2: 7.0 cm LVLs ap2: 5.1 cm Doppler Measurements & Calculations MV E max deep: 51.4 cm/sec TR max deep: 181.9 cm/sec MV A max deep: 86.1 cm/sec TR max P.2 mmHg MV E/A: 0.60 Med Peak E' Deep: 5.3 cm/sec E/E' med: 9.7 Lat Peak E' Deep: 10.1 cm/sec E/E' lat: 5.1 E/e' average: 7.4 MV dec time: 0.19 sec MV P1/2t-pr_phl: 56.0 msec Reading Physician:06:05 PM
== END ==
PROVIDERS: PCP Nurse Practitioner Family; Referring Provider Internal Medicine Cardiovascular Disease; Visit Provider Internal Medicine Cardiovascular Disease
DX: I51.9 Heart disease, unspecified (principal)
CPT/HCPCS: 93306

== ENCOUNTER → 2021-06-06 09:39 | Outpatient (CLI) | payer MEDICARE, SELFPAY ==
[2021-06-06 11:15] LABS: Add Manual Diff / Slide Review NO; Basophils Absolute Auto 100 /uL (0-100); Basophils Percent Auto 0.9 % (0-2); Eosinophils Absolute Auto 100 /uL (0-450); Hematocrit 38.8 % (36-46); Hemoglobin 12.9 g/dL (12.0-16.0); Lymphocytes Absolute Auto 1000 /uL (1100-4500); Lymphocytes Percent Auto 15.9 % (25-40); Mean Corpuscular HGB Conc 33.3 % (30-36); Mean Corpuscular Hemoglobin 29.6 PG (26-34); Mean Corpuscular Volume 89.1 fL (80-100); Monocytes Absolute Auto 400 /uL (0-900); Monocytes Percent Auto 6.7 % (3-14); Neutrophils Absolute Auto 4700 /uL (1500-7000); Neutrophils Percent Auto 74.5 % (50-75); Platelet Count 238 X10^3/uL (150-400); Red Blood Cell Count 4.36 X10^6/uL (4.0-5.2); Red Cell Distribution Width 14.1 % (11.6-14.8); White Blood Cell Count 6.3 X10^3/uL (4.5-11.0)
[2021-06-06 11:57] LABS: Blood Urea Nitrogen 23 mg/dL (7-17); Calcium 9.4 mg/dL (8.4-10.2); Carbon Dioxide 30 mmol/L (22-32); Chloride 106 mmol/L (98-107); Estimated Glomerular Filt Rate 44 mL/min (>60); Glucose 75 mg/dL (80-110); HEMOLYSIS < 15 (0-50); Magnesium 2.4 mg/dL (1.6-2.3); Phosphorous 3.3 mg/dL (2.8-4.1); Potassium 4.2 mmol/L (3.4-5.1); Sodium 143 mmol/L (137-145)
[2021-06-06 12:46] LABS: Vitamin D 25 Hydroxy (D3) 62.6 ng/mL (30.0-100.0)
[2021-06-06 17:39] LABS: Creatinine Urine Random 50.2 mg/dL
[2021-06-06 18:59] LABS: Microalbumin Urine Random < 0.6 mg/dL (0-1.6)
[2021-06-07 07:44] LABS: Parathyroid Hormone Int 60 pg/mL (15-65)
== END ==
PROVIDERS: PCP Nurse Practitioner Family; Referring Provider Internal Medicine Nephrology; Visit Provider Internal Medicine Nephrology
DX: N18.31 Chronic kidney disease, stage 3a (principal)
CPT/HCPCS: 36415; 80048; 82043; 82306; 82570; 83735; 83970; 84100; 85025

== ENCOUNTER → 2021-07-03 11:15 | Outpatient (CLI) | payer MEDICARE, SELFPAY ==
--- NOTE | 2021-07-03 11:16 | DI.RAD.S_ITS ---
PROCEDURE: XR KNEE RT 3V INDICATIONS: fall, knee pain TECHNIQUE: 3 views of the knee were acquired. COMPARISON: [facility], , KNEE 3V LEFT, 04/24/2017, 14:43. FINDINGS: Bones: Mildly displaced fracture of the lateral patella. No suspicious bony lesions. Lateral compartment arthroplasty has been performed. Soft tissues: No joint effusion. No suspicious soft tissue calcifications. IMPRESSION: Patellar fracture. Dictated by: Mindy Poe M.D. on 07/03/2021 at 11:35 Approved by: Mindy Poe M.D. on 07/03/2021 at 11:36
== END ==
PROVIDERS: PCP Nurse Practitioner Family; Referring Provider Nurse Practitioner Family; Visit Provider Nurse Practitioner Family
DX: S82.091A Other fracture of right patella, initial encounter for closed fracture (principal); M25.561 Pain in right knee; W19.XXXA Unspecified fall, initial encounter
CPT/HCPCS: 73562

== ENCOUNTER → 2021-08-03 11:25 | Outpatient (CLI) | payer MEDICARE, SELFPAY ==
--- NOTE | 2021-08-03 | DI.MG.S_ITS ---
BILATERAL DIGITAL SCREENING MAMMOGRAM 3D/2D WITH CAD: 08/03/2021 CLINICAL: Routine screening. Comparison is made to exams dated: 07/18/2020 mammogram, 07/11/2019 mammogram, and 05/05/2018 mammogram - [facility]. There are scattered fibroglandular elements in both breasts. Current study was also evaluated with a Computer Aided Detection (CAD) system. There is a mole marker on both breasts. No significant masses, calcifications, or other findings are seen in either breast. There has been no significant interval change. IMPRESSION: NEGATIVE There is no mammographic evidence of malignancy. A 1 year screening mammogram is recommended. This exam was interpreted at Station ID: [id number]. NOTE: For mammograms, a report in lay terms will be sent to the patient. Approximately 15% of breast malignancies will not be visualized mammographically. In the management of a palpable breast mass, a negative mammogram must not discourage biopsy of a clinically suspicious lesion. Electronically Signed By: Iftikhar newell/gege:08/03/2021 14:34:59 letter sent: Normal Exam ACR BI-RADS Category 1: Negative [id number]
== END ==
PROVIDERS: PCP Internal Medicine; Referring Provider Internal Medicine; Visit Provider Internal Medicine
DX: Z12.31 Encounter for screening mammogram for malignant neoplasm of breast (principal)
CPT/HCPCS: 77063; 77067

== ENCOUNTER → 2021-08-28 08:39 | Outpatient (CLI) | payer MEDICARE, SELFPAY ==
[2021-08-28 10:57] LABS: BUN Creatinine Ratio 14.2 (6-22); Blood Urea Nitrogen 18 mg/dL (7-17); Calcium 9.2 mg/dL (8.4-10.2); Carbon Dioxide 27 mmol/L (22-32); Chloride 105 mmol/L (98-107); Estimated Glomerular Filt Rate 44 mL/min (>60); Glucose 79 mg/dL (80-110); HEMOLYSIS < 15 (0-50); Potassium 4.3 mmol/L (3.4-5.1); Sodium 141 mmol/L (137-145)
== END ==
PROVIDERS: PCP Internal Medicine; Referring Provider Internal Medicine Cardiovascular Disease; Visit Provider Internal Medicine Cardiovascular Disease
DX: I51.9 Heart disease, unspecified (principal); I47.2 Ventricular tachycardia; I44.7 Left bundle-branch block, unspecified
CPT/HCPCS: 36415; 80048

== ENCOUNTER → 2021-10-20 10:22 | Outpatient (CLI) | payer MEDICARE, SELFPAY ==
[2021-10-20 12:03] LABS: Cholesterol 125 mg/dL (140-199); HDL Cholesterol 58 mg/dL (40-60); LDL Cholesterol Calculated 43 mg/dL (<100); Triglycerides 122 mg/dL (35-150)
[2021-10-20 12:37] LABS: TSH w/ Reflex to FT4 2.36 uIU/mL (0.47-4.68)
== END ==
PROVIDERS: PCP Internal Medicine; Referring Provider Internal Medicine; Visit Provider Internal Medicine
DX: E03.9 Hypothyroidism, unspecified (principal); E78.2 Mixed hyperlipidemia
CPT/HCPCS: 36415; 80061; 84443

== ENCOUNTER → 2021-11-22 14:19 | Outpatient (CLI) | payer MEDICARE, SELFPAY | PROVIDERS: PCP Internal Medicine; Referring Provider Internal Medicine; Visit Provider Internal Medicine | DX: Z78.0 Asymptomatic menopausal state (principal); M81.0 Age-related osteoporosis without current pathological fracture; Z87.311 Personal history of (healed) other pathological fracture | CPT/HCPCS: 77080 ==

== ENCOUNTER → 2021-12-13 09:15 | Outpatient (CLI) | payer MEDICARE, SELFPAY ==
[2021-12-13 10:18] LABS: Add Manual Diff / Slide Review NO; Basophils Absolute Auto 100 /uL (0-100); Basophils Percent Auto 1.2 % (0-2); Eosinophils Absolute Auto 200 /uL (0-450); Eosinophils Percent Auto 2.8 % (2-4); Hematocrit 37.2 % (36-46); Hemoglobin 12.4 g/dL (12.0-16.0); Lymphocytes Absolute Auto 900 /uL (1100-4500); Lymphocytes Percent Auto 16.7 % (25-40); Mean Corpuscular HGB Conc 33.3 % (30-36); Mean Corpuscular Hemoglobin 29.1 PG (26-34); Mean Corpuscular Volume 87.1 fL (80-100); Monocytes Absolute Auto 400 /uL (0-900); Monocytes Percent Auto 7.7 % (3-14); Neutrophils Absolute Auto 4000 /uL (1500-7000); Neutrophils Percent Auto 71.6 % (50-75); Platelet Count 239 X10^3/uL (150-400); Red Blood Cell Count 4.26 X10^6/uL (4.0-5.2); Red Cell Distribution Width 13.8 % (11.6-14.8); White Blood Cell Count 5.6 X10^3/uL (4.5-11.0)
[2021-12-13 10:40] LABS: BUN Creatinine Ratio 21.9 (6-22); Blood Urea Nitrogen 25 mg/dL (7-17); Calcium 9.3 mg/dL (8.4-10.2); Carbon Dioxide 28 mmol/L (22-32); Chloride 104 mmol/L (98-107); Estimated Glomerular Filt Rate 51 mL/min (>60); Glucose 86 mg/dL (80-110); HEMOLYSIS < 15 (0-50); Magnesium 2.2 mg/dL (1.6-2.3); Phosphorous 3.7 mg/dL (2.8-4.1); Potassium 4.6 mmol/L (3.4-5.1); Sodium 138 mmol/L (137-145)
[2021-12-13 10:44] LABS: HEMOLYSIS < 15 (0-50); Iron 96 ug/dL (37-170)
[2021-12-13 10:54] LABS: Percent Iron Saturation 28 % (15-50); Total Iron Binding Capacity 338 ug/dL (265-497); Transferrin 267 mg/dL (206-381)
[2021-12-13 10:58] LABS: Vitamin D 25 Hydroxy (D3) 54.6 ng/mL (30.0-100.0)
[2021-12-13 11:15] LABS: Ferritin 29 ng/mL (11-264)
[2021-12-13 16:34] LABS: Creatinine Urine Random 59.7 mg/dL
[2021-12-13 16:41] LABS: Microalbumi Creatinin Ratio Ur 11.7 ug/mg CR (<30); Microalbumin Urine Random 0.7 mg/dL (0-1.6)
[2021-12-15 07:19] LABS: Parathyroid Hormone Int 58 pg/mL (15-65)
== END ==
PROVIDERS: PCP Internal Medicine; Referring Provider Internal Medicine Nephrology; Visit Provider Internal Medicine Nephrology
DX: N18.32 Chronic kidney disease, stage 3b (principal)
CPT/HCPCS: 36415; 80048; 82043; 82306; 82570; 82728; 83540; 83550; 83735; 83970; 84100; 85025

== ENCOUNTER → 2022-05-07 10:17 | Outpatient (CLI) | payer MEDICARE, SELFPAY ==
[2022-05-07 11:37] LABS: Cholesterol 138 mg/dL (140-199); HDL Cholesterol 59 mg/dL (40-60); LDL Cholesterol Calculated 58 mg/dL (<100); Triglycerides 104 mg/dL (35-150)
== END ==
PROVIDERS: Family Provider Internal Medicine; PCP Internal Medicine; Referring Provider Internal Medicine Cardiovascular Disease; Visit Provider Internal Medicine Cardiovascular Disease
DX: I70.90 Unspecified atherosclerosis (principal); I73.9 Peripheral vascular disease, unspecified
CPT/HCPCS: 36415; 80061

== ENCOUNTER → 2022-06-20 09:07 | Outpatient (CLI) | payer MEDICARE, SELFPAY ==
[2022-06-20 10:57] LABS: Add Manual Diff / Slide Review NO; Basophils Absolute Auto 100 /uL (0-100); Basophils Percent Auto 0.8 % (0-2); Eosinophils Absolute Auto 200 /uL (0-450); Eosinophils Percent Auto 2.9 % (2-4); Hematocrit 36.9 % (36-46); Hemoglobin 12.6 g/dL (12.0-16.0); Lymphocytes Absolute Auto 1100 /uL (1100-4500); Lymphocytes Percent Auto 17.2 % (25-40); Mean Corpuscular Hemoglobin 29.4 PG (26-34); Mean Corpuscular Volume 86.4 fL (80-100); Monocytes Absolute Auto 500 /uL (0-900); Monocytes Percent Auto 7.4 % (3-14); Neutrophils Absolute Auto 4400 /uL (1500-7000); Neutrophils Percent Auto 71.7 % (50-75); Platelet Count 226 X10^3/uL (150-400); Red Blood Cell Count 4.27 X10^6/uL (4.0-5.2); Red Cell Distribution Width 13.2 % (11.6-14.8); White Blood Cell Count 6.2 X10^3/uL (4.5-11.0)
[2022-06-20 11:48] LABS: BUN Creatinine Ratio 17.2 (6-22); Blood Urea Nitrogen 21 mg/dL (7-17); Calcium 9.3 mg/dL (8.4-10.2); Carbon Dioxide 27 mmol/L (22-32); Chloride 105 mmol/L (98-107); Estimated Glomerular Filt Rate 46 mL/min (>60); Glucose 81 mg/dL (80-110); HEMOLYSIS < 15 (0-50); Magnesium 2.2 mg/dL (1.6-2.3); Phosphorous 3.6 mg/dL (2.8-4.1); Sodium 137 mmol/L (137-145)
[2022-06-20 16:44] LABS: Creatinine Urine Random 72.8 mg/dL
[2022-06-20 16:46] LABS: Microalbumin Urine Random < 0.6 mg/dL (0-1.6)
[2022-06-20 16:57] LABS: Vitamin D 25 Hydroxy (D3) 48.7 ng/mL (30.0-100.0)
[2022-06-22 12:30] LABS: Parathyroid Hormone Int 57 pg/mL (15-65)
== END ==
PROVIDERS: Family Provider Internal Medicine; PCP Internal Medicine; Referring Provider Internal Medicine Nephrology; Visit Provider Internal Medicine Nephrology
DX: N18.31 Chronic kidney disease, stage 3a (principal)
CPT/HCPCS: 36415; 80048; 82043; 82306; 82570; 83735; 83970; 84100; 85025

== ENCOUNTER → 2022-08-06 14:44 | Outpatient (CLI) | payer MEDICARE, SELFPAY ==
--- NOTE | 2022-08-06 | DI.MG.S_ITS ---
BILATERAL DIGITAL SCREENING MAMMOGRAM 3D/2D WITH CAD: 08/06/2022 CLINICAL: Routine screening. Comparison is made to exams dated: 08/03/2021 mammogram, 07/18/2020 mammogram, and 07/11/2019 mammogram - [facility]. There are scattered areas of fibroglandular density in both breasts (category b / 25%-50% glandular tissue). Current study was also evaluated with a Computer Aided Detection (CAD) system. No significant masses, calcifications, or other findings are seen in either breast. There has been no significant interval change. IMPRESSION: NEGATIVE There is no mammographic evidence of malignancy. A 1 year screening mammogram is recommended. Based on the Tyrer Cuzick model (a risk assessment model) the patient's lifetime risk is 3.0% and her 10 year risk is 3.0%. According to the ACR, ACS, and NCCN guidelines, an annual breast MRI exam along with mammogram is recommended if the patient's lifetime risk is 20% or greater. This exam was interpreted at Station ID: [id number]. NOTE: For mammograms, a report in lay terms will be sent to the patient. Approximately 15% of breast malignancies will not be visualized mammographically. In the management of a palpable breast mass, a negative mammogram must not discourage biopsy of a clinically suspicious lesion. Electronically Signed By: El green/gege:08/06/2022 15:34:38 letter sent: Normal Exam ACR BI-RADS Category 1: Negative [id number]
== END ==
PROVIDERS: Family Provider Internal Medicine; PCP Internal Medicine; Referring Provider Internal Medicine; Visit Provider Internal Medicine
DX: Z12.31 Encounter for screening mammogram for malignant neoplasm of breast (principal)
CPT/HCPCS: 77063; 77067

== ENCOUNTER 2022-08-29 15:16 | Observation (INO) | payer MEDICARE, SELFPAY ==
[2022-08-29] VITALS (47 sets, daily range): BP systolic 109–146; BP diastolic 55–84; PULSE 69–107; RESP 13–56; TEMP 37; O2SAT 90–98; BMI 25.0
--- NOTE | 2022-08-29 15:24 | DI.RAD.S_ITS ---
PROCEDURE: XR CHEST 1V INDICATIONS: syncope, +covid TECHNIQUE: One view of the chest was acquired. COMPARISON: [facility], CR, XR CHEST 2V, 01/10/2018, 10:38. FINDINGS: Surgical changes and devices: None. Lungs and pleura: Lungs are clear. No pleural effusions or pneumothorax. Mediastinum: Mediastinal contours appear normal. Heart size is normal. Bones and chest wall: No suspicious bony lesions. Overlying soft tissues appear unremarkable. IMPRESSION: No acute cardiopulmonary disease. Dictated by: Son Calderon M.D. on 08/29/2022 at 16:21 Approved by: Son Calderon M.D. on 08/29/2022 at 16:22
--- NOTE | 2022-08-29 15:24 | DI.CT.S_ITS ---
PROCEDURE: CT HEAD/BRAIN WO CON INDICATIONS: syncope, head injury, +covid TECHNIQUE: Noncontrast 4.5 mm thick angled axial sections acquired from the foramen magnum to the vertex, with coronal and sagittal reformats. For radiation dose reduction, the following was used: automated exposure control, adjustment of mA and/or kV according to patient size. COMPARISON: None. FINDINGS: Image quality: Excellent. CSF spaces: Basal cisterns are patent. No extra-axial fluid collections. The ventricles are symmetric in size and shape. Brain: No intracranial bleeds or masses. There is cerebral volume loss for age, with resultant ventricular and sulcal prominence. There are periventricular and deep white matter chronic small vessel ischemic changes. There is intracranial internal carotid artery atherosclerosis. Areas of mild calcification can be within the brain. Skull and face: Calvarium and visualized facial bones appear intact, without suspicious lesions. Sinuses: Mild mucosal thickening can be seen within the paranasal sinuses. IMPRESSION: No acute intracranial hemorrhage is seen. No acute intracranial process is seen. Areas of mild calcification can be seen within the brain, which are nonspecific, yet likely benign. Dictated by: Jens Pichardo M.D. on 08/29/2022 at 14:39 Approved by: Jens Pichardo M.D. on 08/29/2022 at 14:40
--- NOTE | 2022-08-29 15:26 | ED.SYNCOPE ---
HPI - Syncope General Chief Complaint: Syncope Stated Complaint: Syncope/Fall Time Seen by Provider: 08/29/22 15:16 Source: patient, EMS, RN notes reviewed and old records reviewed Mode of arrival: EMS Limitations: no limitations History of Present Illness HPI narrative: This is a 77-year-old female with history of hypertension, dyslipidemia, hypothyroidism, osteoporosis, chronic kidney disease stage 3 after left nephrectomy for renal cancer, cholecystectomy and neck fusion. Patient states that she started developing fevers and cough with some clear productive sputum on Saturday. Patient did a home COVID test and tested positive along with her spouse who had symptoms the day before. She notes her bowels had been in [place] this weekend. Patient states she got a panic attack which typically includes her feeling shaky, nauseated getting an episode of diarrhea. This all occurred patient states she was headed back from the bathroom and next thing she knows she woke up on the floor. She believed had struck her head and does have some dried blood. She states her headache is improving, no acute vision changes. She denies chest pain or shortness of breath. She states productive sputum that is clear with no hemoptysis or color changes. She denies any recent syncopal episodes. No nausea or vomiting. She had diarrhea 1 time but has not had recurrent or repeated diarrheal episodes. No black or bloody stools. No abdominal back or flank pain. She denies dysuria urgency or frequency. She denies new swelling in her extremities. She is currently on Paxlovid, she states she did stop her atorvastatin for that medication. She notes she is had a left nephrectomy for renal cell carcinoma 2014 and has chronic kidney disease stage 3, she follows with Nephrology regularly. Cholecystectomy and neck fusion. Patient was seat he is allergic to codeine makes her nauseated and penicillin so yeast infections. No tobacco, no alcohol or illicit drugs. She states her tetanus is up-to-date. Dr. Fitzgerald is her primary care. Related Data Home Medications Medication Instructions Recorded Confirmed calcium citrate 315 mg 1 tab PO DAILY ##0 10/09/16 05/07/22 calcium-vitamin D3 6.25 mcg (250 unit) tablet (Citracal + Vitamin D Maximum) ferrous sulfate 142 mg (45 mg 142 mg PO BID 09/23/18 05/07/22 iron) tablet,extended release (Slow Fe) diclofenac sodium 1 % topical gel 2 g topical TID PRN 03/15/20 05/07/22 (Voltaren) magnesium oxide 500 mg capsule 500 mg PO DAILY 03/15/20 05/07/22 methylcellulose (with sugar) oral 1 tbsp PO DAILY 03/15/20 05/07/22 powder (Citrucel (sucrose) oral powder) atorvastatin 20 mg tablet 20 mg PO DAILY 09/15/20 05/07/22 lisinopril 2.5 mg tablet 2.5 mg PO DAILY 09/16/20 05/07/22 metoprolol succinate 25 mg mg PO 09/16/20 05/07/22 tablet,extended release 24 hr famotidine 20 mg tablet (Pepcid AC) 20 mg PO DAILY 10/20/21 05/07/22 dramnru-jqxdrdwavyebn-uyhhbstj 1 tab PO DAILY PRN pain 05/07/22 05/07/22 [Excedrin Migraine] biotin 1 tab PO DAILY 05/07/22 05/07/22 omega-3 fatty acids-fish oil 360 1 cap PO DAILY 05/07/22 05/07/22 mg-1,200 mg capsule (Fish Oil) Previous Rx's Medication Instructions Recorded melatonin 3 mg tablet 3 mg PO BEDTIME PRN sleep #90 tabs 08/20/17 uvqeqzal-kmb-jnbov acid 0.4 1 tab PO DAILY #90 tabs 08/20/17 mg-lycopene 300 mcg-lutein 250 mcg tablet (Centrum Silver) levothyroxine 25 mcg tablet 25 mcg PO DAILY #90 tabs 10/20/21 raloxifene 60 mg tablet 60 mg PO DAILY #90 tabs 10/20/21 nirmatrelvir 150 mg-ritonavir 100 See Rx Instructions PO PER PKG DIR 08/28/22 mg tablets in a dose pack #20 ea (Paxlovid) Allergies Allergy/AdvReac Type Severity Reaction Status Date / Time codeine Allergy Unknown NAUSEA Verified 05/07/22 07:51 erythromycin base Allergy Unknown NAUSEA Verified 05/07/22 07:51 Penicillins Allergy Unknown YEAST Verified 05/07/22 07:51 INFECTION lansoprazole AdvReac Intermediate worsened Verified 05/07/22 09:55 kidney function Review of Systems Review of Systems ROS Unobtainable: All systems reviewed & are unremarkable except as noted in HPI and below Patient History Medical History Acquired hypothyroidism Age-related osteoporosis without current pathological fracture Anemia (~2001) Arthritis Kelly's esophagus determined by endoscopy (2018) Cataracts, bilateral (~2015) Chicken pox (~1957) Coronary artery disease Diverticulosis (2018) Essential hypertension Foot pain Fractures Gallstones (~1983) GERD (gastroesophageal reflux disease) GERD without esophagitis Heavy menstrual period (~1958) History of kidney cancer (~2014) History of renal cell carcinoma Inflammatory bowel disease Knee pain, bilateral Left bundle branch block (2018) Leg cramps (~2009) Measles (~1965) Microscopic colitis Microscopic hematuria Mumps (~1970) Osteoarthritis (~2009) Painful menstrual periods (~1958) Plantar warts (~1960) Pneumonia 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 Restless legs syndrome Scoliosis (~1983) Stage 3b chronic kidney disease (CKD) Synovial cyst of popliteal space [[place]], right knee Systolic CHF, chronic Thyroid disease Vision disorder Surgical History Anesthesia History of arthroscopic knee surgery History of bursectomy History of eye surgery (~2014) History of fusion of cervical spine (~1993) History of knee replacement (~2012) History of nephrectomy (12/27/14) History of third molar tooth extraction (~1965) Macular pucker (~2015) Status post adenoidectomy (~1957) Status post cholecystectomy (~1983) Status post tubal ligation (~1983) Family History Father Heart disease Hypertension Grandmother Cancer Mother Cancer Migraines Inflammatory bowel disease Grandmother No problems noted. Social History details: (Les) household members: spouse Smoking Status: Never smoker Smoking Status: Never smoker alcohol intake frequency: holidays/special occasions only Substance Use Type: does not use Exam Narrative Exam Narrative: GEN: Patient appears in mild distress. HEAD: Patient has a laceration left posterior scalp approximately 4.6 cm in length. Does gape when pulled on, no active bleeding. No raccoon/Capellan sign. NECK: Nontender, painless range of motion, trachea midline Negative for Nexus criteria, there is no midline line tenderness, distracting injury, altered mental status, neuro deficit, recent EtOH. EYES: PERRLA, EOMI ENT: External inspection normal, trachea is midline, TM's are normal no hemotypanum, Nares are clear, no septal hematoma, no dental or oral injury, airway is normal and with normal occlusion, No bony tenderness RESP: Chest is nontender and has symmetric movement, no ecchymosis, breath sounds are normal no crackles, wheezes or rales CVS: Heart sounds are normal, no murmur noted, No JVD. ABG/GI: Nontender, nondistended. Soft, normal bowel sounds, no distention, no organomegaly, pelvic rock is negative NEURO: Oriented AOx3, neuro is grossly intact, sensation and motor is normal all 4 extremities moving, cranial nerves II through XII are intact, GCS is 15 PSYCH: Normal mood and affect SKIN: Intact, warm and dry, no crepitus and without decubitus BACK: No CVA tenderness, no vertebral tenderness, no step-off's, no crepitus EXT: Atraumatic, hips are nontender, no pedal edema, normal color and temperature, normal range of motion of extremities with normal tendon exam, 2+ pulses in all four extremities Initial Vital Signs Initial Vital Signs: Vital Signs Pulse Rate 73 08/29/22 15:26 Respiratory Rate 18 08/29/22 15:26 Blood Pressure 109/62 08/29/22 15:26 Pulse Oximetry 94 08/29/22 15:26 Oxygen Delivery Method Room Air 08/29/22 15:26 Procedures Laceration Repair Laceration 1: Site: scalp Side (If applicable): left Size (cm): 4.7 Description: linear Depth: simple, single layer and involves muscle layer Local Anesthetic: lidocaine 2% and with epi Amount of anesthesia used (mL): 8 Pre-repair: wound explored, irrigated extensively and deep structures intact Skin layer closed with: sammie (#7) Course Orders Ordered: ED Orders 08/29/22 15:20 Complete Blood Count AUTO DIFF Stat Comprehensive Metabolic Panel Stat D Dimer Stat Lactate (Lactic Acid) Stat Lipase Stat NT-proBNP (BNP-Adult 18+) Stat PTT Partial Thromboplastin Jung Stat Procalcitonin Stat Prothrombin Time INR Stat Troponin & CK Cardiac Panel Stat 08/29/22 15:24 CT head/brain wo con Stat XR chest 1V Stat EKG-12 Lead Stat 08/29/22 15:42 Covid-19 + FLU A/B + RSV - PCR Stat 08/29/22 16:02 CT abdomen pelvis w con Stat CT angio chest PE protocol Stat 08/29/22 16:15 Blood Culture Stat 08/29/22 17:42 GI Panel (Film Array) Stat Discontinued Medications Sodium Chloride (Normal Saline 0.9%) 1,000 mls @ 1,000 mls/hr IV BOLUS ONE Stop: 08/29/22 16:23 Last Infusion: 08/29/22 19:00 Dose: Infused Ondansetron HCl (Ondansetron 4 Mg/2 Ml Inj) 4 mg IV NOW ONE Stop: 08/29/22 18:33 Last Admin: 08/29/22 19:00 Dose: 4 mg Vital Signs Vital signs: Vital Signs - 8 hr 08/29/22 15:26 08/29/22 15:36 08/29/22 15:37 Pulse Rate 73 75 Respiratory Rate 18 13 Blood Pressure 109/62 121/57 L Pulse Oximetry 94 94 Oxygen Delivery Method Room Air 08/29/22 15:37 08/29/22 15:45 08/29/22 16:00 Pulse Rate 72 72 78 Respiratory Rate 17 18 32 H Blood Pressure Pulse Oximetry 94 96 97 Oxygen Delivery Method 08/29/22 16:06 08/29/22 16:06 08/29/22 16:10 Pulse Rate 72 74 Respiratory Rate 23 20 Blood Pressure 125/61 Pulse Oximetry 96 97 Oxygen Delivery Method 08/29/22 16:10 08/29/22 16:15 08/29/22 16:15 Pulse Rate 74 Respiratory Rate 17 Blood Pressure 121/58 L 126/60 Pulse Oximetry 97 Oxygen Delivery Method 08/29/22 16:20 08/29/22 16:20 08/29/22 16:25 Pulse Rate 72 71 Respiratory Rate 15 18 Blood Pressure 116/59 L Pulse Oximetry 95 93 Oxygen Delivery Method 08/29/22 16:25 08/29/22 16:30 08/29/22 16:30 Pulse Rate 75 Respiratory Rate 28 H Blood Pressure 117/57 L 124/58 L Pulse Oximetry 96 Oxygen Delivery Method 08/29/22 16:45 08/29/22 16:48 08/29/22 16:48 Pulse Rate 75 74 Respiratory Rate 25 H 18 Blood Pressure 127/61 Pulse Oximetry 95 95 Oxygen Delivery Method 08/29/22 16:50 08/29/22 16:50 08/29/22 16:55 Pulse Rate 80 Respiratory Rate 18 Blood Pressure 131/62 128/60 Pulse Oximetry 97 Oxygen Delivery Method 08/29/22 16:55 08/29/22 17:00 08/29/22 17:00 Pulse Rate 75 77 Respiratory Rate 13 17 Blood Pressure 137/67 Pulse Oximetry 96 96 Oxygen Delivery Method 08/29/22 17:05 08/29/22 17:05 08/29/22 17:10 Pulse Rate 74 71 Respiratory Rate 15 18 Blood Pressure 131/65 Pulse Oximetry 94 97 Oxygen Delivery Method 08/29/22 17:10 08/29/22 17:15 08/29/22 17:15 Pulse Rate 69 Respiratory Rate 19 Blood Pressure 137/64 132/60 Pulse Oximetry 94 Oxygen Delivery Method 08/29/22 17:20 08/29/22 17:20 08/29/22 17:25 Pulse Rate 70 Respiratory Rate 18 Blood Pressure 135/64 146/69 H Pulse Oximetry 96 Oxygen Delivery Method 08/29/22 17:25 08/29/22 17:30 08/29/22 17:30 Pulse Rate 80 90 Respiratory Rate 22 26 H Blood Pressure 120/56 L Pulse Oximetry 96 98 Oxygen Delivery Method 08/29/22 17:36 08/29/22 17:36 08/29/22 18:35 Pulse Rate 80 107 H Respiratory Rate 17 Blood Pressure 142/63 H Pulse Oximetry 97 94 Oxygen Delivery Method MDM - Syncope Lab Data 08/29/22 15:20 08/29/22 15:20 Labs: Lab Results 08/29/22 08/29/22 08/29/22 Range/Units 15:20 15:20 15:20 WBC 7.5 (4.5-11.0) X10^3/uL RBC 4.36 (4.0-5.2) X10^6/uL Hgb 12.7 (12.0-16.0) g/dL Hct 37.3 (36-46) % MCV 85.5 (80-100) fL MCH 29.2 (26-34) PG MCHC 34.1 (30-36) % RDW 13.7 (11.6-14.8) % Plt Count 192 (150-400) X10^3/uL Neut % (Auto) 76.1 H (50-75) % Lymph % (Auto) 13.0 L (25-40) % [place] % (Auto) 9.7 (3-14) % Eos % (Auto) 0.3 L (2-4) % Baso % (Auto) 0.9 (0-2) % Neut # (Auto) 5700 (7925-3565) /uL Lymph # (Auto) 1000 L (8202-9863) /uL [place] # (Auto) 700 (0-900) /uL Eos # (Auto) 0 (0-450) /uL Baso # (Auto) 100 (0-100) /uL PT 12.5 (10.1-12.7) SECONDS INR 1.1 (0.9-1.3) APTT 32 (26-36) SECONDS D-Dimer (<500) ng/ml Sodium 134 L (137-145) mmol/L Potassium 4.0 (3.4-5.1) mmol/L Chloride 101 (98-107) mmol/L Carbon Dioxide 26 (22-32) mmol/L BUN 17 (7-17) mg/dL Creatinine 1.24 H (0.52-1.04) mg/dL Estimated GFR 45 L (>60) mL/min BUN/Creatinine Ratio 13.7 (6-22) Glucose 115 H (80-110) mg/dL Lactate (0.7-2.1) mmol/L Calcium 9.0 (8.4-10.2) mg/dL Total Bilirubin 2.1 H (0.2-1.3) mg/dL AST 73 H (14-36) IU/L ALT 55 H (<35) IU/L Alkaline Phosphatase 64 (38-126) U/L Total Creatine Kinase 84 (30-135) U/L Troponin I < 0.012 (0.01-0.034) ng/mL NT-Pro-B Natriuret Pep (<450) pg/mL Total Protein 7.1 (6.3-8.2) g/dL Albumin 4.1 (3.5-5.0) g/dL Globulin 3.0 (1.7-4.1) g/dL Albumin/Globulin Ratio 1.4 (1.0-2.8) Lipase 205 (23-300) U/L Procalcitonin 0.22 (<0.5) ng/mL SARS-CoV-2 (PCR) (Negative) Influenza A (RT-PCR) (NEGATIVE) Influenza B (RT-PCR) (NEGATIVE) RSV (PCR) (Negative) 08/29/22 08/29/22 08/29/22 Range/Units 15:20 15:20 15:20 WBC (4.5-11.0) X10^3/uL RBC (4.0-5.2) X10^6/uL Hgb (12.0-16.0) g/dL Hct (36-46) % MCV (80-100) fL MCH (26-34) PG MCHC (30-36) % RDW (11.6-14.8) % Plt Count (150-400) X10^3/uL Neut % (Auto) (50-75) % Lymph % (Auto) (25-40) % [place] % (Auto) (3-14) % Eos % (Auto) (2-4) % Baso % (Auto) (0-2) % Neut # (Auto) (7879-8168) /uL Lymph # (Auto) (1337-6887) /uL [place] # (Auto) (0-900) /uL Eos # (Auto) (0-450) /uL Baso # (Auto) (0-100) /uL PT (10.1-12.7) SECONDS INR (0.9-1.3) APTT (26-36) SECONDS D-Dimer 4933 H (<500) ng/ml Sodium (137-145) mmol/L Potassium (3.4-5.1) mmol/L Chloride (98-107) mmol/L Carbon Dioxide (22-32) mmol/L BUN (7-17) mg/dL Creatinine (0.52-1.04) mg/dL Estimated GFR (>60) mL/min BUN/Creatinine Ratio (6-22) Glucose (80-110) mg/dL Lactate 1.0 (0.7-2.1) mmol/L Calcium (8.4-10.2) mg/dL Total Bilirubin (0.2-1.3) mg/dL AST (14-36) IU/L ALT (<35) IU/L Alkaline Phosphatase (38-126) U/L Total Creatine Kinase (30-135) U/L Troponin I (0.01-0.034) ng/mL NT-Pro-B Natriuret Pep 1080 H (<450) pg/mL Total Protein (6.3-8.2) g/dL Albumin (3.5-5.0) g/dL Globulin (1.7-4.1) g/dL Albumin/Globulin Ratio (1.0-2.8) Lipase (23-300) U/L Procalcitonin (<0.5) ng/mL SARS-CoV-2 (PCR) (Negative) Influenza A (RT-PCR) (NEGATIVE) Influenza B (RT-PCR) (NEGATIVE) RSV (PCR) (Negative) 08/29/22 Range/Units 15:42 WBC (4.5-11.0) X10^3/uL RBC (4.0-5.2) X10^6/uL Hgb (12.0-16.0) g/dL Hct (36-46) % MCV (80-100) fL MCH (26-34) PG MCHC (30-36) % RDW (11.6-14.8) % Plt Count (150-400) X10^3/uL Neut % (Auto) (50-75) % Lymph % (Auto) (25-40) % [place] % (Auto) (3-14) % Eos % (Auto) (2-4) % Baso % (Auto) (0-2) % Neut # (Auto) (1044-8841) /uL Lymph # (Auto) (3797-7771) /uL [place] # (Auto) (0-900) /uL Eos # (Auto) (0-450) /uL Baso # (Auto) (0-100) /uL PT (10.1-12.7) SECONDS INR (0.9-1.3) APTT (26-36) SECONDS D-Dimer (<500) ng/ml Sodium (137-145) mmol/L Potassium (3.4-5.1) mmol/L Chloride (98-107) mmol/L Carbon Dioxide (22-32) mmol/L BUN (7-17) mg/dL Creatinine (0.52-1.04) mg/dL Estimated GFR (>60) mL/min BUN/Creatinine Ratio (6-22) Glucose (80-110) mg/dL Lactate (0.7-2.1) mmol/L Calcium (8.4-10.2) mg/dL Total Bilirubin (0.2-1.3) mg/dL AST (14-36) IU/L ALT (<35) IU/L Alkaline Phosphatase (38-126) U/L Total Creatine Kinase (30-135) U/L Troponin I (0.01-0.034) ng/mL NT-Pro-B Natriuret Pep (<450) pg/mL Total Protein (6.3-8.2) g/dL Albumin (3.5-5.0) g/dL Globulin (1.7-4.1) g/dL Albumin/Globulin Ratio (1.0-2.8) Lipase (23-300) U/L Procalcitonin (<0.5) ng/mL SARS-CoV-2 (PCR) Positive H (Negative) Influenza A (RT-PCR) Flu a negative (NEGATIVE) Influenza B (RT-PCR) Flu b negative (NEGATIVE) RSV (PCR) Negative (Negative) Imaging Data CT scan - head: Radiologist's Impression: [place] [address] CT Scan Report Signed Patient: Chantelle Hinojosa MR#: [id number] : 1945 Acct:[id number] Age/Sex: 77 / F Date of Service: 08/29/22 Loc: ED Accession Number: [id number] ?? Procedure: CT head/brain wo con Ordering Provider: Maura Hughes D.O. PROCEDURE:? CT HEAD/BRAIN WO CON ? INDICATIONS:? syncope, head injury, +covid ? TECHNIQUE:? Noncontrast 4.5 mm thick angled axial sections acquired from the foramen magnum to the vertex, with coronal and sagittal reformats.? For radiation dose reduction, the following was used:? automated exposure control, adjustment of mA and/or kV according to patient size.? ? COMPARISON:? None. ? FINDINGS:? Image quality:? Excellent.? ? CSF spaces:? Basal cisterns are patent.? No extra-axial fluid collections.? The ventricles are symmetric in size and shape.? ? Brain:? No intracranial bleeds or masses.? There is cerebral volume loss for age, with resultant ventricular and sulcal prominence.? There are periventricular and deep white matter chronic small vessel ischemic changes.? There is intracranial internal carotid artery atherosclerosis.? Areas of mild calcification can be within the brain. ? Skull and face:? Calvarium and visualized facial bones appear intact, without suspicious lesions.? ? Sinuses:? Mild mucosal thickening can be seen within the paranasal sinuses. ? ? IMPRESSION:? No acute intracranial hemorrhage is seen.? ? No acute intracranial process is seen.? ? Areas of mild calcification can be seen within the brain, which are nonspecific, yet likely benign.? ? Dictated by: Jens Pichardo M.D. on 08/29/2022 at 14:39 ? ? Approved by: Jens Pichardo M.D. on 08/29/2022 at 14:40?? CT scan - chest: Radiologist's Impression: [address] [id number] Scan ReportSigned Patient: Madeline Enciso MMR#: [id number]: 07/19/1936cct:[id number]/Sex: 86 / FDate of Service: 08/29/22Loc: EDAccession Number: [id number]? ? Procedure: CT cervical spine wo con Ordering Provider: Maura Hughes D.O. PROCEDURE:? CT CERVICAL SPINE WO CON ? INDICATIONS:? fall on coumadin ? TECHNIQUE:? Noncontrast 3 mm thick sections acquired from the skull base to the T4 level.? Sagittal and coronal reformats were then constructed.? For radiation dose reduction, the following was used:? automated exposure control, adjustment of mA and/or kV according to patient size.? ? COMPARISON:? None. ? FINDINGS:? Image quality:? Excellent.? ? Bones:? No fractures or dislocations.? Visualized superior ribs are intact.? Multilevel degenerative changes are present. ? Soft tissues:? Prevertebral soft tissues are normal in thickness.? No paravertebral hematomas.? No apical pneumothoraces.? ? ? IMPRESSION:? Degenerative changes without visualized fracture. ? Dictated by: Abby Gilliam M.D. on 08/29/2022 at 15:47? ?? Approved by: Abby Gilliam M.D. on 08/29/2022 at 15:48?? CT scan - abdomen/pelvis: Radiologist's Impression: [address] [address] [address] Scan Report Signed Patient: Chantelle Hinojosa MR#: [id number] : 1945 Acct:[id number] Age/Sex: 77 / F Date of Service: 08/29/22 Loc: ED Accession Number: [id number] ?? Procedure: CT abdomen pelvis w con Ordering Provider: Maura Hughes D.O. PROCEDURE:? CT ABDOMEN PELVIS W CON ? INDICATIONS:? syncope, covid+, elevated lfts, hypotension ? TECHNIQUE:? After the administration of oral and IV contrast, axial sections were acquired from the lung bases to the pubic symphysis.? Coronal and sagittal reformats were performed.? For radiation dose reduction, the following was used:? automated exposure control, adjustment of mA and/or kV according to patient size. ? COMPARISON:? [facility], CT, CT KIDNEY URETER BLADDER (KUB), 02/29/2020, 13:44.? [facility], CT, CT ABDOMEN PELVIS W CON, 01/10/2018, 10:53.? [facility], CT, CT ANGIO CHEST PE PROTOCOL, 08/29/2022, 16:34.? [facility], CT, CT ABDOMEN PELVIS W CON, 10/24/2018, 15:23. ? FINDINGS:? Image quality:? Excellent.? ? Lung bases:? Please see separate chest CT angio findings.? ? Heart:? No significant findings. ? ? ABDOMEN: Liver:? Normal size.? Mild hepatic steatosis.? ? Gallbladder:? Surgically absent? ? Biliary ducts:? There is intrahepatic and extrahepatic biliary dilation, unchanged.? ? Pancreas:? Unremarkable.? ? Spleen:? Unremarkable.? ? Adrenal Glands:? Unremarkable.? ? Kidneys and Ureters:? Left kidney is surgically absent.? Right kidney is normal.? ? ? Stomach and Bowel:? Stomach, small bowel loops, and colon are unremarkable.? Mild diverticulosis.? No acute diverticulitis. Peritoneum:? No abnormal intraperitoneal fluid.? No free air.? ? Ventral Wall: ? No hernia.? Abdominal Nodes:? No retroperitoneal or mesenteric adenopathy by size criteria.? Vessels:? Aorta and inferior vena cava are normal in size.? ? PELVIS: Pelvic Organs:? Unremarkable.? ? Bladder:? Unremarkable.? ? Pelvic Nodes: No enlarged lymph nodes.? Miscellaneous: No inguinal hernias are seen. ? ? ? Bones:? Scoliosis.? Degenerative changes in lumbar spine.? IMPRESSION:? ? 1. No acute abnormalities in abdomen or pelvis. ? 2. There is intrahepatic and extrahepatic biliary dilation, unchanged from the last exam dated 10/24/2018.? The finding is most likely secondary to postsurgical change.? Please correlate with serum bilirubin.? If there is clinical concern for biliary obstruction further evaluation. ? 3. Mild hepatic steatosis. ? 4. Diverticulosis without diverticulitis.? ? 5. Left nephrectomy.? ? Dictated by: Son Calderon M.D. on 08/29/2022 at 17:22 ? ? Approved by: Son Calderon M.D. on 08/29/2022 at 17:28?? ECG Data Attestation: I personally reviewed and interpreted this ECG as follows: Prior ECG tracings: not available for review Interpretation: Sinus rhythm premature supraventricular complex cover left bundle-branch block. Rate of 69 IN 144 QRS of 150 QTC [address]. No acute ST elevation patient appears to have occasional paced beats. No priors for comparison MDM Narrative Medical decision making narrative: This is a 77-year-old female who tested positive for COVID earlier this week she is had fevers cough that has been productive with clear sputum. She states today she had what she describes as her usual panic attack feeling shaky, nauseated and having diarrhea, she is not had repeated episodes of diarrhea or black or bloody stools but had a syncopal episode striking head. She does take aspirin every day 2 tablets so as anticoagulated with aspirin. With EMS initial pressure was 50, then 100, then 70, patient was 115 100 systolic here had received a 250 bolus. This was continued for a full 1L bolus. Patient's pressure continued to be improved. Was able to sit on edge of bed maintain pressure. Head CT secondary to syncope patient also has scalp laceration, no acute bleed or intracranial process, areas of mild calcification seen within the brain nonspecific likely to be benign chest x-ray showed no acute change, EKG EKG showed bundle-branch block, sinus rhythm, and labs were obtained. CBC normal white count, normal hemoglobin and platelets low lymphocyte count, neutrophils 76%. Patient had dimer obtained secondary to COVID with syncopal episode was 49,000, prompting CT angio rule out pulmonary emboli, this showed changes consistent with pneumonia, no pulmonary emboli, mild mediastinal and hilar lymphadenopathy likely reactive. Sodium is 134, potassium is 4, chloride 101 CO2 is 26 BUN 17 creatinine 1.2 for which appears close to patient's baseline of 1.22 in June, glucose was 115 lactate negative, patient's bilirubin is 2.1 with an AST of 73 cm 55- lipase, troponin negative with BNP of 1080.. Procalcitonin negative. Patient had CT abdomen pelvis secondary to elevated LFTs, she has some biliary dilation unchanged from last exam in 2019 likely secondary to postsurgical change, mild hepatic steatosis diverticulosis without diverticulitis left nephrectomy no acute abnormalities noted. Patient has not been able to give a clean urine sample it has been mixed in with stool. She did have 2 episodes of diarrhea in the department and was sent for GI panel which is pending. Patient attempted to ambulate even from lying to sitting became tachycardic in the 107 range, no hypotension documented but patient's O2 sat went from 97-91%. Patient is COVID positive likely with COVID pneumonia. Her dizziness has somewhat improved but is still present. Patient is not able to ambulate well. Spoke with Dr. Cabrera, hospitalist who accepts for observation. Patient received 1 L of fluid, he asked for another 500 bolus. Patient also received Zofran here in the department. Patient does not have any hypoxia so no dexamethasone or remdesivir was initiated. She denies any abdominal pain. Discharge Plan Departure Patient Disposition: Admitted as Observation Clinical Impression: 2019 novel coronavirus-infected pneumonia (NCIP), Elevated LFTs Admit Date/Time: 08/29/22 18:38 Admit Provider: Austin Cabrera
[2022-08-29 15:34] LABS: Add Manual Diff / Slide Review NO; Basophils Absolute Auto 100 /uL (0-100); Basophils Percent Auto 0.9 % (0-2); Eosinophils Absolute Auto 0 /uL (0-450); Eosinophils Percent Auto 0.3 % (2-4); Hematocrit 37.3 % (36-46); Hemoglobin 12.7 g/dL (12.0-16.0); Lymphocytes Absolute Auto 1000 /uL (1100-4500); Mean Corpuscular HGB Conc 34.1 % (30-36); Mean Corpuscular Hemoglobin 29.2 PG (26-34); Mean Corpuscular Volume 85.5 fL (80-100); Monocytes Absolute Auto 700 /uL (0-900); Monocytes Percent Auto 9.7 % (3-14); Neutrophils Absolute Auto 5700 /uL (1500-7000); Neutrophils Percent Auto 76.1 % (50-75); Platelet Count 192 X10^3/uL (150-400); Red Blood Cell Count 4.36 X10^6/uL (4.0-5.2); Red Cell Distribution Width 13.7 % (11.6-14.8); White Blood Cell Count 7.5 X10^3/uL (4.5-11.0)
[2022-08-29 15:42] LABS: INR 1.1 (0.9-1.3); Prothrombin Time 12.5 SECONDS (10.1-12.7)
[2022-08-29 15:45] LABS: PTT Partial Thromboplastin Tim 32 SECONDS (26-36)
[2022-08-29 15:51] LABS: Alanine Aminotransferase 55 IU/L (<35); Albumin 4.1 g/dL (3.5-5.0); Albumin Globulin Ratio 1.4 (1.0-2.8); Alkaline Phosphatase 64 U/L (38-126); Aspartate Aminotransferase 73 IU/L (14-36); BUN Creatinine Ratio 13.7 (6-22); Bilirubin Total 2.1 mg/dL (0.2-1.3); Blood Urea Nitrogen 17 mg/dL (7-17); Carbon Dioxide 26 mmol/L (22-32); Chloride 101 mmol/L (98-107); Creatine Kinase 84 U/L (30-135); D Dimer 4933 ng/ml (<500); Estimated Glomerular Filt Rate 45 mL/min (>60); Glucose 115 mg/dL (80-110); Lipase 205 U/L (23-300); Sodium 134 mmol/L (137-145); Total Protein 7.1 g/dL (6.3-8.2)
[2022-08-29 15:54] LABS: HEMOLYSIS 83 (0-50)
[2022-08-29 15:57] LABS: NT-proBNP (BNP-Adult 18+) 1080 pg/mL (<450)
[2022-08-29 16:00] LABS: Troponin I < 0.012 ng/mL (0.01-0.034)
--- NOTE | 2022-08-29 16:02 | DI.CT.S_ITS ---
PROCEDURE: CT ANGIO CHEST PE PROTOCOL INDICATIONS: syncope, covid+, elevated lfts, hypotension TECHNIQUE: After the administration of intravenous contrast, 2 mm thick sections acquired from the pulmonary apices to the posterior costophrenic angles. 3-dimensional maximum intensity projection (MIP) coronal and sagittal reformats were then acquired through the thorax. For radiation dose reduction, the following was used: automated exposure control, adjustment of mA and/or kV according to patient size. COMPARISON: [facility], CT, CT ABDOMEN PELVIS W CON, 08/29/2022, 16:34. FINDINGS: Image quality: Excellent. Pulmonary arteries: Pulmonary arteries are normal in size, and demonstrate no intraluminal filling defects to suggest central pulmonary embolism. Lungs and pleura: Bilateral subpleural densities are present, compatible with atypical pneumonia. No pleural effusions or pneumothorax. Central and peripheral airways are patent. Mediastinum: Heart size is normal, without pericardial effusion. Mild mediastinal or hilar adenopathy. Thoracic aorta is normal in caliber and enhancement. Esophagus is normal in caliber, without hiatal hernia. Bones and chest wall: Scoliosis and degenerative changes in thoracic and lumbar spine. No suspicious bony lesions. Ribs and thoracic spine appear intact throughout. There is a 5 mm low-density nodule in the right thyroid lobe. No axillary or supraclavicular adenopathy. Abdomen: Left kidney is absent. Visualized upper abdominal solid organs appear normal in the early arterial phase of enhancement. IMPRESSION: 1. No evidence for pulmonary embolism. 2. Suspect mild atypical pneumonia. 3. Mild mediastinal and hilar lymphadenopathy, most likely reactive. Dictated by: Son Calderon M.D. on 08/29/2022 at 17:17 Approved by: Son Calderon M.D. on 08/29/2022 at 17:21
--- NOTE | 2022-08-29 16:02 | DI.CT.S_ITS ---
PROCEDURE: CT ABDOMEN PELVIS W CON INDICATIONS: syncope, covid+, elevated lfts, hypotension TECHNIQUE: After the administration of oral and IV contrast, axial sections were acquired from the lung bases to the pubic symphysis. Coronal and sagittal reformats were performed. For radiation dose reduction, the following was used: automated exposure control, adjustment of mA and/or kV according to patient size. COMPARISON: [facility], CT, CT KIDNEY URETER BLADDER (KUB), 02/29/2020, 13:44. [facility], CT, CT ABDOMEN PELVIS W CON, 01/10/2018, 10:53. [facility], CT, CT ANGIO CHEST PE PROTOCOL, 08/29/2022, 16:34. [facility], CT, CT ABDOMEN PELVIS W CON, 10/24/2018, 15:23. FINDINGS: Image quality: Excellent. Lung bases: Please see separate chest CT angio findings. Heart: No significant findings. ABDOMEN: Liver: Normal size. Mild hepatic steatosis. Gallbladder: Surgically absent Biliary ducts: There is intrahepatic and extrahepatic biliary dilation, unchanged. Pancreas: Unremarkable. Spleen: Unremarkable. Adrenal Glands: Unremarkable. Kidneys and Ureters: Left kidney is surgically absent. Right kidney is normal. Stomach and Bowel: Stomach, small bowel loops, and colon are unremarkable. Mild diverticulosis. No acute diverticulitis. Peritoneum: No abnormal intraperitoneal fluid. No free air. Ventral Wall: No hernia. Abdominal Nodes: No retroperitoneal or mesenteric adenopathy by size criteria. Vessels: Aorta and inferior vena cava are normal in size. PELVIS: Pelvic Organs: Unremarkable. Bladder: Unremarkable. Pelvic Nodes: No enlarged lymph nodes. Miscellaneous: No inguinal hernias are seen. Bones: Scoliosis. Degenerative changes in lumbar spine. IMPRESSION: 1. No acute abnormalities in abdomen or pelvis. 2. There is intrahepatic and extrahepatic biliary dilation, unchanged from the last exam dated 10/24/2018. The finding is most likely secondary to postsurgical change. Please correlate with serum bilirubin. If there is clinical concern for biliary obstruction further evaluation. 3. Mild hepatic steatosis. 4. Diverticulosis without diverticulitis. 5. Left nephrectomy. Dictated by: Son Calderon M.D. on 08/29/2022 at 17:22 Approved by: Son Calderon M.D. on 08/29/2022 at 17:28
[2022-08-29 16:05] LABS: Procalcitonin 0.22 ng/mL (<0.5)
--- NOTE | 2022-08-29 16:11 | PC.NURSE ---
pt blood pressure is up to 120s, per provider, slowly sitting pt up to check if BP is maintained
[2022-08-29 17:15] LABS: Influenza A - CEPHEID Flu A NEGATIVE (NEGATIVE); Influenza B - CEPHEID Flu B NEGATIVE (NEGATIVE); Respiratory Syncytial Virus Negative (Negative)
[2022-08-29 17:26] LABS: COVID-19 CEPHEID 4-PLEX PCR POSITIVE (Negative)
--- NOTE | 2022-08-29 17:48 | PC.NURSE ---
pt up to commode, states she does feel lightheaded and dizzy during this time. provider notified
[2022-08-29] MEDS: SODIUM CHLORIDE 0.9% 1,000 ML 1000 ML IV (18:35)
--- NOTE | 2022-08-29 18:36 | PC.NURSE ---
COAGULATING BATH MIXER Note - Patient stated, while ambulating, that she had pain and weakness in her legs, as well as severe nausea.
[2022-08-29] MEDS: ONDANSETRON 4 MG/2 ML INJ IV (19:00)
[2022-08-29 19:15] LABS: Campylobacter Not Detected (Not Detect); Clostridium difficile toxin AB Not Detected (Not Detect); Enteroaggregative E.coli Not Detected (Not Detect); Enteropathogenic E.coli Not Detected (Not Detect); Enterotoxigenic E.coli It/st Not Detected (Not Detect); Plesiomonsa shigelloides Not Detected (Not Detect); Salmonella Not Detected (Not Detect); Vibrio Not Detected (Not Detect); Vibrio cholerae Not Detected (Not Detect); Yersinia enterocolitica Not Detected (Not Detect)
[2022-08-29 19:16] LABS: Adenovirus F 40/41 Not Detected (Not Detect); Astrovirus Not Detected (Not Detect); Cryptosporidium Not Detected (Not Detect); Cyclospora cayetanensis Not Detected (Not Detect); Entamoeba histolytica Not Detected (Not Detect); Giardia lamblia Not Detected (Not Detect); Norovirus GI/GII Not Detected (Not Detect); Rotavirus A Not Detected (Not Detect); Sapovirus Not Detected (Not Detect); Shiga-like toxin-prod E.coli Not Detected (Not Detect); Shigella/Enteroinvasive E.coli Not Detected (Not Detect)
--- NOTE | 2022-08-29 22:37 | PM.HP.1 ---
History of Present Illness History of Present Illness Date Patient Seen: 08/29/22 Date of Onset of Symptoms: 08/27/22 Chief complaint: Syncope/Fall Narrative: The pt is a 77 yo who developed SINGH, myalgias, fevers up to 102 at home and chill who had a panic attack at home today which she does have occasionally described as feeling flushed, sudden onset of SOB, hyperventilation with tachycardia and she laid down on her bathroom floor as her covers her in ice pack completely. She did this for about a half an hour and then she went back to lay down for a little bit. She got up to go to the bathroom again and had a syncope episode. She was then brought to the ER where she was found to be + for COVID. During my interview, she was without pain, confusion, no change in vision, denied vertigo, and had a SaO2 of 94% on RA. FORMERLY [facility], [facility]–1983 Medical History Acquired hypothyroidism Age-related osteoporosis without current pathological fracture Anemia (~2001) Arthritis Kelly's esophagus determined by endoscopy (2018) Cataracts, bilateral (~2015) Chicken pox (~1957) Coronary artery disease Diverticulosis (2018) Essential hypertension Foot pain Fractures Gallstones (~1983) GERD (gastroesophageal reflux disease) GERD without esophagitis Heavy menstrual period (~1958) History of kidney cancer (~2014) History of renal cell carcinoma Inflammatory bowel disease Knee pain, bilateral Left bundle branch block (2018) Leg cramps (~2009) Measles (~1965) Microscopic colitis Microscopic hematuria Mumps (~1970) Osteoarthritis (~2009) Painful menstrual periods (~1958) Plantar warts (~1960) Pneumonia 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 Restless legs syndrome Scoliosis (~1983) Stage 3b chronic kidney disease (CKD) Synovial cyst of popliteal space [[place]], right knee Systolic CHF, chronic Thyroid disease Vision disorder Surgical History Anesthesia History of arthroscopic knee surgery History of bursectomy History of eye surgery (~2014) History of fusion of cervical spine (~1993) History of knee replacement (~2012) History of nephrectomy (12/27/14) History of third molar tooth extraction (~1965) Macular pucker (~2015) Status post adenoidectomy (~1957) Status post cholecystectomy (~1983) Status post tubal ligation (~1983) Family History Father Heart disease Hypertension Grandmother Cancer Mother Cancer Migraines Inflammatory bowel disease Grandmother No problems noted. Social History details: (Les) household members: spouse Smoking Status: Never smoker alcohol intake: former Meds Home Medications and Allergies Home Medications Medication Instructions Recorded Confirmed Type calcium citrate 315 mg 1 tab PO DAILY ##0 10/09/16 08/29/22 History calcium-vitamin D3 6.25 mcg (250 unit) tablet (Citracal + Vitamin D Maximum) melatonin 3 mg tablet 3 mg PO BEDTIME PRN sleep #90 tabs 08/20/17 08/29/22 Rx subeetms-jwy-ywtmr acid 0.4 1 tab PO DAILY #90 tabs 08/20/17 08/29/22 Rx mg-lycopene 300 mcg-lutein 250 mcg tablet (Centrum Silver) ferrous sulfate 142 mg (45 mg 142 mg PO BID 09/23/18 08/29/22 History iron) tablet,extended release (Slow Fe) diclofenac sodium 1 % topical gel 2 g topical TID PRN Pain, Mild 03/15/20 08/29/22 History (Voltaren) magnesium oxide 500 mg capsule 500 mg PO DAILY 03/15/20 08/29/22 History methylcellulose (with sugar) oral 1 tbsp PO DAILY 03/15/20 08/29/22 History powder (Citrucel (sucrose) oral powder) atorvastatin 20 mg tablet 20 mg PO DAILY 09/15/20 08/29/22 History lisinopril 2.5 mg tablet 2.5 mg PO DAILY 09/16/20 08/29/22 History metoprolol succinate 25 mg 12.5 mg PO DAILY 09/16/20 08/29/22 History tablet,extended release 24 hr famotidine 20 mg tablet (Pepcid AC) 20 mg PO DAILY 10/20/21 08/29/22 History levothyroxine 25 mcg tablet 25 mcg PO DAILY #90 tabs 10/20/21 08/29/22 Rx raloxifene 60 mg tablet 60 mg PO DAILY #90 tabs 10/20/21 08/29/22 Rx qouyahs-qiylyxndowjjs-yqzwwypi 1 tab PO DAILY PRN pain 05/07/22 08/29/22 History [Excedrin Migraine] omega-3 fatty acids-fish oil 360 1 cap PO DAILY 05/07/22 08/29/22 History mg-1,200 mg capsule (Fish Oil) nirmatrelvir 150 mg-ritonavir 100 See Rx Instructions PO PER PKG DIR 08/28/22 08/29/22 Rx mg tablets in a dose pack #20 ea (Paxlovid) Allergies Allergy/AdvReac Type Severity Reaction Status Date / Time codeine Allergy Unknown NAUSEA Verified 05/07/22 07:51 erythromycin base Allergy Unknown NAUSEA Verified 05/07/22 07:51 Penicillins Allergy Unknown YEAST Verified 05/07/22 07:51 INFECTION lansoprazole AdvReac Intermediate worsened Verified 05/07/22 09:55 kidney function Review of Systems Review of Systems Narrative: all systems were reviewed and are negative except what is listed in the HPI. Exam Vital Signs (past 8 hours): - 08/29/22 15:26 08/29/22 15:36 08/29/22 15:37 Temperature Pulse Rate 73 75 Respiratory Rate 18 13 Blood Pressure 109/62 121/57 L Pulse Oximetry 94 94 Oxygen Delivery Method Room Air Oxygen Flow Rate 08/29/22 15:37 08/29/22 15:45 08/29/22 16:00 Temperature Pulse Rate 72 72 78 Respiratory Rate 17 18 32 H Blood Pressure Pulse Oximetry 94 96 97 Oxygen Delivery Method Oxygen Flow Rate 08/29/22 16:06 08/29/22 16:06 08/29/22 16:10 Temperature Pulse Rate 72 74 Respiratory Rate 23 20 Blood Pressure 125/61 Pulse Oximetry 96 97 Oxygen Delivery Method Oxygen Flow Rate 08/29/22 16:10 08/29/22 16:15 08/29/22 16:15 Temperature Pulse Rate 74 Respiratory Rate 17 Blood Pressure 121/58 L 126/60 Pulse Oximetry 97 Oxygen Delivery Method Oxygen Flow Rate 08/29/22 16:20 08/29/22 16:20 08/29/22 16:25 Temperature Pulse Rate 72 71 Respiratory Rate 15 18 Blood Pressure 116/59 L Pulse Oximetry 95 93 Oxygen Delivery Method Oxygen Flow Rate 08/29/22 16:25 08/29/22 16:30 08/29/22 16:30 Temperature Pulse Rate 75 Respiratory Rate 28 H Blood Pressure 117/57 L 124/58 L Pulse Oximetry 96 Oxygen Delivery Method Oxygen Flow Rate 08/29/22 16:45 08/29/22 16:48 08/29/22 16:48 Temperature Pulse Rate 75 74 Respiratory Rate 25 H 18 Blood Pressure 127/61 Pulse Oximetry 95 95 Oxygen Delivery Method Oxygen Flow Rate 08/29/22 16:50 08/29/22 16:50 08/29/22 16:55 Temperature Pulse Rate 80 Respiratory Rate 18 Blood Pressure 131/62 128/60 Pulse Oximetry 97 Oxygen Delivery Method Oxygen Flow Rate 08/29/22 16:55 08/29/22 17:00 08/29/22 17:00 Temperature Pulse Rate 75 77 Respiratory Rate 13 17 Blood Pressure 137/67 Pulse Oximetry 96 96 Oxygen Delivery Method Oxygen Flow Rate 08/29/22 17:05 08/29/22 17:05 08/29/22 17:10 Temperature Pulse Rate 74 71 Respiratory Rate 15 18 Blood Pressure 131/65 Pulse Oximetry 94 97 Oxygen Delivery Method Oxygen Flow Rate 08/29/22 17:10 08/29/22 17:15 08/29/22 17:15 Temperature Pulse Rate 69 Respiratory Rate 19 Blood Pressure 137/64 132/60 Pulse Oximetry 94 Oxygen Delivery Method Oxygen Flow Rate 08/29/22 17:20 08/29/22 17:20 08/29/22 17:25 Temperature Pulse Rate 70 Respiratory Rate 18 Blood Pressure 135/64 146/69 H Pulse Oximetry 96 Oxygen Delivery Method Oxygen Flow Rate 08/29/22 17:25 08/29/22 17:30 08/29/22 17:30 Temperature Pulse Rate 80 90 Respiratory Rate 22 26 H Blood Pressure 120/56 L Pulse Oximetry 96 98 Oxygen Delivery Method Oxygen Flow Rate 08/29/22 17:36 08/29/22 17:36 08/29/22 18:35 Temperature Pulse Rate 80 107 H Respiratory Rate 17 Blood Pressure 142/63 H Pulse Oximetry 97 94 Oxygen Delivery Method Oxygen Flow Rate 08/29/22 17:40 08/29/22 17:40 08/29/22 17:45 Temperature Pulse Rate 73 Respiratory Rate 16 Blood Pressure 136/65 141/67 H Pulse Oximetry 98 Oxygen Delivery Method Oxygen Flow Rate 08/29/22 17:45 08/29/22 17:50 08/29/22 17:50 Temperature Pulse Rate 76 73 Respiratory Rate 15 18 Blood Pressure 113/57 L Pulse Oximetry 96 97 Oxygen Delivery Method Oxygen Flow Rate 08/29/22 17:55 08/29/22 17:55 08/29/22 18:00 Temperature Pulse Rate 70 Respiratory Rate 18 Blood Pressure 138/62 137/62 Pulse Oximetry 95 Oxygen Delivery Method Oxygen Flow Rate 08/29/22 18:00 08/29/22 18:05 08/29/22 18:05 Temperature Pulse Rate 71 72 Respiratory Rate 21 20 Blood Pressure 131/63 Pulse Oximetry 96 94 Oxygen Delivery Method Oxygen Flow Rate 08/29/22 18:10 08/29/22 18:10 08/29/22 18:15 Temperature Pulse Rate 69 Respiratory Rate 21 Blood Pressure 136/59 L 127/55 L Pulse Oximetry 95 Oxygen Delivery Method Oxygen Flow Rate 08/29/22 18:15 08/29/22 18:20 08/29/22 18:20 Temperature Pulse Rate 73 72 Respiratory Rate 21 20 Blood Pressure 132/60 Pulse Oximetry 95 95 Oxygen Delivery Method Oxygen Flow Rate 08/29/22 18:32 08/29/22 18:45 08/29/22 19:00 Temperature Pulse Rate 95 H 74 76 Respiratory Rate 56 H 16 21 Blood Pressure Pulse Oximetry 96 95 97 Oxygen Delivery Method Oxygen Flow Rate 08/29/22 19:15 08/29/22 19:30 08/29/22 19:45 Temperature Pulse Rate 78 70 73 Respiratory Rate 28 H 19 22 Blood Pressure Pulse Oximetry 97 93 95 Oxygen Delivery Method Oxygen Flow Rate 08/29/22 20:00 08/29/22 20:15 08/29/22 20:30 Temperature Pulse Rate 70 69 70 Respiratory Rate 22 21 20 Blood Pressure Pulse Oximetry 93 91 95 Oxygen Delivery Method Room Air Oxygen Flow Rate 08/29/22 20:45 08/29/22 21:00 08/29/22 21:15 Temperature Pulse Rate 76 94 H 82 Respiratory Rate 20 Blood Pressure Pulse Oximetry 92 90 L 95 Oxygen Delivery Method Oxygen Flow Rate 08/29/22 21:42 Temperature 98.6 F Pulse Rate 79 Respiratory Rate 18 Blood Pressure 138/84 Pulse Oximetry 94 Oxygen Delivery Method Oxygen Flow Rate 0 Oxygen Delivery Method Room Air Oxygen Flow Rate 0 Const General: cooperative, healthy appearing, comfortable and well developed Orientation: alert, awake and oriented x3 Resp Effort & Inspection: normal respiratory effort and able to speak in complete sentences Auscultation: clear to auscultation bilaterally Cardio Rate: regular rate Rhythm: regular rhythm GI Palpation: soft and no hepatosplenomegaly Auscultation: normal bowel sounds Skin Rashes: no rashes Neuro General: patient alert, patient awake and moves all extremities Objective Imaging CT scan - abdomen: My impression: diverticulosis, single kidney, CT scan - chest: My impression: no PE, diffuse infiltrates Labs 08/29/22 15:20 08/29/22 15:20 Labs: Laboratory Results - last 24 hr 08/29/22 08/29/22 08/29/22 15:20 15:20 15:20 WBC 7.5 RBC 4.36 Hgb 12.7 Hct 37.3 MCV 85.5 MCH 29.2 MCHC 34.1 RDW 13.7 Plt Count 192 Neut % (Auto) 76.1 H Lymph % (Auto) 13.0 L [place] % (Auto) 9.7 Eos % (Auto) 0.3 L Baso % (Auto) 0.9 Neut # (Auto) 5700 Lymph # (Auto) 1000 L [place] # (Auto) 700 Eos # (Auto) 0 Baso # (Auto) 100 PT 12.5 INR 1.1 APTT 32 D-Dimer Sodium 134 L Potassium 4.0 Chloride 101 Carbon Dioxide 26 BUN 17 Creatinine 1.24 H Estimated GFR 45 L BUN/Creatinine Ratio 13.7 Glucose 115 H Lactate Calcium 9.0 Total Bilirubin 2.1 H AST 73 H ALT 55 H Alkaline Phosphatase 64 Total Creatine Kinase 84 Troponin I < 0.012 NT-Pro-B Natriuret Pep Total Protein 7.1 Albumin 4.1 Globulin 3.0 Albumin/Globulin Ratio 1.4 Lipase 205 Procalcitonin 0.22 Stl C. cayetanensis PCR Stool Rotavirus (PCR) Stool Adenovirus (PCR) Stool Astrovirus (PCR) Stool Cryptosporidium PCR Stl E.coli Shiga Tox PCR St Sh/Enteroin Ecoli PCR Stool E coli O157 PCR Stl Enterotoxigenic E PCR Stool EPEC (PCR) Stl E. histolytica PCR Stool Giardia Lamblia PCR Stool Sapovirus (PCR) Stl P. shigelloides PCR St Y.enterocolitica PCR Stool Vibrio (PCR) Stl Vibrio cholerae PCR Stl Enteroaggr Ecoli PCR Stl Norovirus GI/GII PCR Campylobacter (PCR) C. difficile Tox (PCR) SARS-CoV-2 (PCR) Influenza A (RT-PCR) Influenza B (RT-PCR) RSV (PCR) Salmonella (PCR) 08/29/22 08/29/22 08/29/22 15:20 15:20 15:20 WBC RBC Hgb Hct MCV MCH MCHC RDW Plt Count Neut % (Auto) Lymph % (Auto) [place] % (Auto) Eos % (Auto) Baso % (Auto) Neut # (Auto) Lymph # (Auto) [place] # (Auto) Eos # (Auto) Baso # (Auto) PT INR APTT D-Dimer 4933 H Sodium Potassium Chloride Carbon Dioxide BUN Creatinine Estimated GFR BUN/Creatinine Ratio Glucose Lactate 1.0 Calcium Total Bilirubin AST ALT Alkaline Phosphatase Total Creatine Kinase Troponin I NT-Pro-B Natriuret Pep 1080 H Total Protein Albumin Globulin Albumin/Globulin Ratio Lipase Procalcitonin Stl C. cayetanensis PCR Stool Rotavirus (PCR) Stool Adenovirus (PCR) Stool Astrovirus (PCR) Stool Cryptosporidium PCR Stl E.coli Shiga Tox PCR St Sh/Enteroin Ecoli PCR Stool E coli O157 PCR Stl Enterotoxigenic E PCR Stool EPEC (PCR) Stl E. histolytica PCR Stool Giardia Lamblia PCR Stool Sapovirus (PCR) Stl P. shigelloides PCR St Y.enterocolitica PCR Stool Vibrio (PCR) Stl Vibrio cholerae PCR Stl Enteroaggr Ecoli PCR Stl Norovirus GI/GII PCR Campylobacter (PCR) C. difficile Tox (PCR) SARS-CoV-2 (PCR) Influenza A (RT-PCR) Influenza B (RT-PCR) RSV (PCR) Salmonella (PCR) 08/29/22 08/29/22 15:42 17:42 WBC RBC Hgb Hct MCV MCH MCHC RDW Plt Count Neut % (Auto) Lymph % (Auto) [place] % (Auto) Eos % (Auto) Baso % (Auto) Neut # (Auto) Lymph # (Auto) [place] # (Auto) Eos # (Auto) Baso # (Auto) PT INR APTT D-Dimer Sodium Potassium Chloride Carbon Dioxide BUN Creatinine Estimated GFR BUN/Creatinine Ratio Glucose Lactate Calcium Total Bilirubin AST ALT Alkaline Phosphatase Total Creatine Kinase Troponin I NT-Pro-B Natriuret Pep Total Protein Albumin Globulin Albumin/Globulin Ratio Lipase Procalcitonin Stl C. cayetanensis PCR Not detected Stool Rotavirus (PCR) Not detected Stool Adenovirus (PCR) Not detected Stool Astrovirus (PCR) Not detected Stool Cryptosporidium PCR Not detected Stl E.coli Shiga Tox PCR Not detected St Sh/Enteroin Ecoli PCR Not detected Stool E coli O157 PCR Not Reportable Stl Enterotoxigenic E PCR Not detected Stool EPEC (PCR) Not detected Stl E. histolytica PCR Not detected Stool Giardia Lamblia PCR Not detected Stool Sapovirus (PCR) Not detected Stl P. shigelloides PCR Not detected St Y.enterocolitica PCR Not detected Stool Vibrio (PCR) Not detected Stl Vibrio cholerae PCR Not detected Stl Enteroaggr Ecoli PCR Not detected Stl Norovirus GI/GII PCR Not detected Campylobacter (PCR) Not detected C. difficile Tox (PCR) Not detected SARS-CoV-2 (PCR) Positive H Influenza A (RT-PCR) Flu a negative Influenza B (RT-PCR) Flu b negative RSV (PCR) Negative Salmonella (PCR) Not detected Assessment & Plan Assessment & Plan narrative: COVID +- will start the pt on Decadron 6 mg daily, supportive care with mucinex q12 prn, albuterol breathing txs, toradol and tylenol for pain or fevers, continue to monitor, currently on RA, stable oxygenation. DIscussed CT scan finding with the pt. THe pt cotton shave elevated D-dimer but CT scan is negative for PE, most likely related to the COVID infection 2. Syncope- most likely related to the COVID infection, will monitor overnight and monitor for neuro changes, CT head reviewed and is normal. Normally the pt is very mobile and active. 3. CKD stage III- Cr is currentl 1.4 which appears to be her baseline, repeat in am. No IVF at this time in light of the elevated BNP, COVID-19 Result date/Date tested (Pos, Neg/Pending): 08/29/22 Quality VTE Deep Vein Thrombosis/Pulmonary Embolism Present on Admission: No
[2022-08-29] MEDS: AZITHROMYCIN 250 MG TABLET 500 MG PO (23:04)
--- NOTE | 2022-08-29 23:33 | PC.NURSE ---
2137 Pt. admitted to room 222, oriented to her room. Encouraged to call for assistance when she need to get up to the bathroom. Call light with reached & bed alarm activated. Will continue plan of care & monitor.
[2022-08-30] MEDS: ONDANSETRON 4 MG/2 ML INJ IV (00:39)
[2022-08-30] MEDS: SODIUM CHLORIDE 0.9% FLUSH 10 ML IV ×2 (00:39→08:50)
--- NOTE | 2022-08-30 00:55 | CM.MNRNOTE ---
Watery stool, pt. requesting Imodium. message sent to Dr. Tirado.
[2022-08-30 02:26] VITALS: O2SAT 94
[2022-08-30 04:00] VITALS: BP 119/60; PULSE 81; RESP 18; TEMP 37.2; O2SAT 96
[2022-08-30 06:00] VITALS: O2SAT 96
[2022-08-30 06:29] LABS: Add Manual Diff / Slide Review NO; Basophils Absolute Auto 0 /uL (0-100); Basophils Percent Auto 0.1 % (0-2); Eosinophils Absolute Auto 0 /uL (0-450); Eosinophils Percent Auto 0.2 % (2-4); Hematocrit 36.8 % (36-46); Hemoglobin 12.4 g/dL (12.0-16.0); Lymphocytes Absolute Auto 700 /uL (1100-4500); Lymphocytes Percent Auto 7.9 % (25-40); Mean Corpuscular HGB Conc 33.6 % (30-36); Mean Corpuscular Hemoglobin 28.9 PG (26-34); Mean Corpuscular Volume 86.1 fL (80-100); Monocytes Absolute Auto 700 /uL (0-900); Monocytes Percent Auto 8.2 % (3-14); Neutrophils Absolute Auto 7100 /uL (1500-7000); Neutrophils Percent Auto 83.6 % (50-75); Platelet Count 179 X10^3/uL (150-400); Red Blood Cell Count 4.28 X10^6/uL (4.0-5.2); Red Cell Distribution Width 13.5 % (11.6-14.8); White Blood Cell Count 8.6 X10^3/uL (4.5-11.0)
[2022-08-30 06:34] LABS: BUN Creatinine Ratio 12.6 (6-22); Blood Urea Nitrogen 15 mg/dL (7-17); Calcium 8.3 mg/dL (8.4-10.2); Carbon Dioxide 25 mmol/L (22-32); Chloride 104 mmol/L (98-107); Estimated Glomerular Filt Rate 48 mL/min (>60); Glucose 100 mg/dL (80-110); HEMOLYSIS < 15 (0-50); Potassium 3.5 mmol/L (3.4-5.1); Sodium 136 mmol/L (137-145)
--- NOTE | 2022-08-30 07:45 | P.PN_ITS ---
Exam Vital Signs (past 8 hours): - 08/30/22 02:26 08/30/22 04:00 08/30/22 06:00 Temperature 99.0 F Pulse Rate 81 Respiratory Rate 18 Blood Pressure 119/60 Pulse Oximetry 94 96 96 Oxygen Delivery Method Room Air Room Air Oxygen Flow Rate 0 Oxygen Delivery Method Room Air Oxygen Flow Rate 0 Narrative Exam Narrative: GEN: no acute distress HEENT: moist mucous membranes, PERRL NECK: trachea midline, no JVD CV: regular rate and rhythm, no murmurs PULM: clear bilaterally ABD: soft, nontender, nondistended, no organomegaly EXT: warm and well perfused with no edema NEURO: awake, alert, oriented, no focal deficits Objective Labs 08/30/22 05:10 08/30/22 05:10 Labs: Laboratory Results - last 24 hr 08/29/22 08/29/22 08/29/22 15:20 15:20 15:20 WBC 7.5 RBC 4.36 Hgb 12.7 Hct 37.3 MCV 85.5 MCH 29.2 MCHC 34.1 RDW 13.7 Plt Count 192 Neut % (Auto) 76.1 H Lymph % (Auto) 13.0 L Stewart % (Auto) 9.7 Eos % (Auto) 0.3 L Baso % (Auto) 0.9 Neut # (Auto) 5700 Lymph # (Auto) 1000 L Stewart # (Auto) 700 Eos # (Auto) 0 Baso # (Auto) 100 PT 12.5 INR 1.1 APTT 32 D-Dimer Sodium 134 L Potassium 4.0 Chloride 101 Carbon Dioxide 26 BUN 17 Creatinine 1.24 H Estimated GFR 45 L BUN/Creatinine Ratio 13.7 Glucose 115 H Lactate Calcium 9.0 Total Bilirubin 2.1 H AST 73 H ALT 55 H Alkaline Phosphatase 64 Total Creatine Kinase 84 Troponin I < 0.012 NT-Pro-B Natriuret Pep Total Protein 7.1 Albumin 4.1 Globulin 3.0 Albumin/Globulin Ratio 1.4 Lipase 205 Procalcitonin 0.22 Stl C. cayetanensis PCR Stool Rotavirus (PCR) Stool Adenovirus (PCR) Stool Astrovirus (PCR) Stool Cryptosporidium PCR Stl E.coli Shiga Tox PCR St Sh/Enteroin Ecoli PCR Stool E coli O157 PCR Stl Enterotoxigenic E PCR Stool EPEC (PCR) Stl E. histolytica PCR Stool Giardia Lamblia PCR Stool Sapovirus (PCR) Stl P. shigelloides PCR St Y.enterocolitica PCR Stool Vibrio (PCR) Stl Vibrio cholerae PCR Stl Enteroaggr Ecoli PCR Stl Norovirus GI/GII PCR Campylobacter (PCR) C. difficile Tox (PCR) SARS-CoV-2 (PCR) Influenza A (RT-PCR) Influenza B (RT-PCR) RSV (PCR) Salmonella (PCR) 08/29/22 08/29/22 08/29/22 15:20 15:20 15:20 WBC RBC Hgb Hct MCV MCH MCHC RDW Plt Count Neut % (Auto) Lymph % (Auto) Stewart % (Auto) Eos % (Auto) Baso % (Auto) Neut # (Auto) Lymph # (Auto) Stewart # (Auto) Eos # (Auto) Baso # (Auto) PT INR APTT D-Dimer 4933 H Sodium Potassium Chloride Carbon Dioxide BUN Creatinine Estimated GFR BUN/Creatinine Ratio Glucose Lactate 1.0 Calcium Total Bilirubin AST ALT Alkaline Phosphatase Total Creatine Kinase Troponin I NT-Pro-B Natriuret Pep 1080 H Total Protein Albumin Globulin Albumin/Globulin Ratio Lipase Procalcitonin Stl C. cayetanensis PCR Stool Rotavirus (PCR) Stool Adenovirus (PCR) Stool Astrovirus (PCR) Stool Cryptosporidium PCR Stl E.coli Shiga Tox PCR St Sh/Enteroin Ecoli PCR Stool E coli O157 PCR Stl Enterotoxigenic E PCR Stool EPEC (PCR) Stl E. histolytica PCR Stool Giardia Lamblia PCR Stool Sapovirus (PCR) Stl P. shigelloides PCR St Y.enterocolitica PCR Stool Vibrio (PCR) Stl Vibrio cholerae PCR Stl Enteroaggr Ecoli PCR Stl Norovirus GI/GII PCR Campylobacter (PCR) C. difficile Tox (PCR) SARS-CoV-2 (PCR) Influenza A (RT-PCR) Influenza B (RT-PCR) RSV (PCR) Salmonella (PCR) 08/29/22 08/29/22 08/30/22 15:42 17:42 05:10 WBC 8.6 RBC 4.28 Hgb 12.4 Hct 36.8 MCV 86.1 MCH 28.9 MCHC 33.6 RDW 13.5 Plt Count 179 Neut % (Auto) 83.6 H Lymph % (Auto) 7.9 L Stewart % (Auto) 8.2 Eos % (Auto) 0.2 L Baso % (Auto) 0.1 Neut # (Auto) 7100 H Lymph # (Auto) 700 L Stewart # (Auto) 700 Eos # (Auto) 0 Baso # (Auto) 0 PT INR APTT D-Dimer Sodium Potassium Chloride Carbon Dioxide BUN Creatinine Estimated GFR BUN/Creatinine Ratio Glucose Lactate Calcium Total Bilirubin AST ALT Alkaline Phosphatase Total Creatine Kinase Troponin I NT-Pro-B Natriuret Pep Total Protein Albumin Globulin Albumin/Globulin Ratio Lipase Procalcitonin Stl C. cayetanensis PCR Not detected Stool Rotavirus (PCR) Not detected Stool Adenovirus (PCR) Not detected Stool Astrovirus (PCR) Not detected Stool Cryptosporidium PCR Not detected Stl E.coli Shiga Tox PCR Not detected St Sh/Enteroin Ecoli PCR Not detected Stool E coli O157 PCR Not Reportable Stl Enterotoxigenic E PCR Not detected Stool EPEC (PCR) Not detected Stl E. histolytica PCR Not detected Stool Giardia Lamblia PCR Not detected Stool Sapovirus (PCR) Not detected Stl P. shigelloides PCR Not detected St Y.enterocolitica PCR Not detected Stool Vibrio (PCR) Not detected Stl Vibrio cholerae PCR Not detected Stl Enteroaggr Ecoli PCR Not detected Stl Norovirus GI/GII PCR Not detected Campylobacter (PCR) Not detected C. difficile Tox (PCR) Not detected SARS-CoV-2 (PCR) Positive H Influenza A (RT-PCR) Flu a negative Influenza B (RT-PCR) Flu b negative RSV (PCR) Negative Salmonella (PCR) Not detected 08/30/22 05:10 WBC RBC Hgb Hct MCV MCH MCHC RDW Plt Count Neut % (Auto) Lymph % (Auto) Stewart % (Auto) Eos % (Auto) Baso % (Auto) Neut # (Auto) Lymph # (Auto) Stewart # (Auto) Eos # (Auto) Baso # (Auto) PT INR APTT D-Dimer Sodium 136 L Potassium 3.5 Chloride 104 Carbon Dioxide 25 BUN 15 Creatinine 1.19 H Estimated GFR 48 L BUN/Creatinine Ratio 12.6 Glucose 100 Lactate Calcium 8.3 L Total Bilirubin AST ALT Alkaline Phosphatase Total Creatine Kinase Troponin I NT-Pro-B Natriuret Pep Total Protein Albumin Globulin Albumin/Globulin Ratio Lipase Procalcitonin Stl C. cayetanensis PCR Stool Rotavirus (PCR) Stool Adenovirus (PCR) Stool Astrovirus (PCR) Stool Cryptosporidium PCR Stl E.coli Shiga Tox PCR St Sh/Enteroin Ecoli PCR Stool E coli O157 PCR Stl Enterotoxigenic E PCR Stool EPEC (PCR) Stl E. histolytica PCR Stool Giardia Lamblia PCR Stool Sapovirus (PCR) Stl P. shigelloides PCR St Y.enterocolitica PCR Stool Vibrio (PCR) Stl Vibrio cholerae PCR Stl Enteroaggr Ecoli PCR Stl Norovirus GI/GII PCR Campylobacter (PCR) C. difficile Tox (PCR) SARS-CoV-2 (PCR) Influenza A (RT-PCR) Influenza B (RT-PCR) RSV (PCR) Salmonella (PCR) [facility] Medical History Acquired hypothyroidism Age-related osteoporosis without current pathological fracture Anemia (~2001) Arthritis Kelly's esophagus determined by endoscopy (2018) Cataracts, bilateral (~2015) Chicken pox (~1957) Coronary artery disease Diverticulosis (2018) Essential hypertension Foot pain Fractures Gallstones (~1983) GERD (gastroesophageal reflux disease) GERD without esophagitis Heavy menstrual period (~1958) History of kidney cancer (~2014) History of renal cell carcinoma Inflammatory bowel disease Knee pain, bilateral Left bundle branch block (2018) Leg cramps (~2009) Measles (~1965) Microscopic colitis Microscopic hematuria Mumps (~1970) Osteoarthritis (~2009) Painful menstrual periods (~1958) Plantar warts (~1960) Pneumonia 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 Restless legs syndrome Scoliosis (~1983) Stage 3b chronic kidney disease (CKD) Synovial cyst of popliteal space [[place]], right knee Systolic CHF, chronic Thyroid disease Vision disorder Surgical History Anesthesia History of arthroscopic knee surgery History of bursectomy History of eye surgery (~2014) History of fusion of cervical spine (~1993) History of knee replacement (~2012) History of nephrectomy (12/27/14) History of third molar tooth extraction (~1965) Macular pucker (~2015) Status post adenoidectomy (~1957) Status post cholecystectomy (~1983) Status post tubal ligation (~1983) Family History Father Heart disease Hypertension Grandmother Cancer Mother Cancer Migraines Inflammatory bowel disease Grandmother No problems noted. Social History details: (Les) household members: spouse Smoking Status: Never smoker alcohol intake: former Assessment & Plan Assessment & Plan narrative: # COVID positive -continue Decadron 6 mg daily -supportive care with mucinex q12 prn -albuterol breathing txs -toradol and tylenol for pain or fevers, continue to monitor -currently on RA, stable oxygenation # Syncope -most likely related to the COVID infection, monitor for neuro changes -CT head reviewed and is normal -Normally the pt is very mobile and active # CKD stage III -Cr is currently 1.4 which appears to be her baseline I have discussed with the hospital multidisciplinary care team including social work rounds. Dispo: [] COVID-19 Result date/Date tested (Pos, Neg/Pending): 08/29/22 Quality VTE Deep Vein Thrombosis/Pulmonary Embolism Present on Admission: No
[2022-08-30 08:40] LABS: Procalcitonin 0.18 ng/mL (<0.5)
[2022-08-30] MEDS: dexAMETHasone 4 MG TABLET 6 MG PO (08:47)
[2022-08-30 08:49] VITALS: BP 149/68; PULSE 87; TEMP 37
[2022-08-30 10:00] VITALS: O2SAT 96
[2022-08-30] MEDS: LOPERAMIDE 2 MG CAPSULE PO (10:31)
[2022-08-30] MEDS: POTASSIUM CHLORIDE 10 MEQ TAB 20 MEQ PO (10:31)
--- NOTE | 2022-08-30 12:17 | CM.DANOTE ---
Initial DCP Assessment Note Pt is a 77 yo female, resident of [place], arrives after a syncopal episode at home w/fevers, chills, generally not feeing well, found to be COVID+ and admitted observation for medical management Patient currently not on O2, major complaint is weakness. Patient may discharge home today w/assist from spouse throughout her recovery PCP: Jose Fitzgerald Payer: Caitlyn ROLON Reviewed chart, pt discussed in multidisciplinary rounds this morning. Patient ambulating in room, likely no need for PT eval. Patient with active COVID infection so cannot perform bedside assessment however chart review indicates no barriers at this time to patient's safe discharge home w/family to assist; close outpatient f/u recommended CM team will plan to follow closely in case any DC needs or concerns arise SYBIL Patel Discharge Planning/Care Management CM Discharge Assessment Start: 08/30/22 11:54 Freq: Status: Active Protocol: Document 08/30/22 11:54 RC (Rec: 08/30/22 12:05 RC [id number]) Discharge Planning Assessment Assigned Retail Sales Associate Seasonal SYBIL Ryan DPOA/Assigned Designee Name Loulou Hinojosa, spouse Contact Information [phone] Advance Directives? Yes Advance Directives on File Yes History Provided By Patient,Medical Record Prior Living Arrangements House Household Members spouse Type of transporation used prior to Drives own vehicle admit Willing to Return to Facility? No Independent with ADL's Yes Is patient alert and oriented? Yes Barriers to Discharge No Comment Patient hopeful to return home w/spouse today, back to functional baseline, ambulating in room, not on O2 Discharge Plan Home Transportation Arrangement Spouse Referrals Initiated None needed
--- NOTE | 2022-08-30 12:24 | P.DS_ITS ---
History of Present Illness History of Present Illness Date Patient Seen: 08/29/22 Date of Onset of Symptoms: 08/27/22 Chief complaint: Syncope/Fall Narrative: The pt is a 77 yo who developed SINGH, myalgias, fevers up to 102 at home and chill who had a panic attack at home today which she does have occasionally described as feeling flushed, sudden onset of SOB, hyperventilation with tachycardia and she laid down on her bathroom floor as her covers her in ice pack completely. She did this for about a half an hour and then she went back to lay down for a little bit. She got up to go to the bathroom again and had a syncope episode. She was then brought to the ER where she was found to be + for COVID. During my interview, she was without pain, confusion, no change in vision, denied vertigo, and had a SaO2 of 94% on RA. Discharge Providers Provider Date of admission: 08/29/22 18:38 Discharge Date: 08/30/22 Primary care physician: Jose Fitzgerald MD Discharge provider: Austin Cabrera DO Summary Hospital Course Discharge Diagnosis: # COVID positive -continue Decadron 6 mg daily -supportive care with mucinex q12 prn -albuterol breathing txs -toradol and tylenol for pain or fevers, continue to monitor -currently on RA, stable oxygenation # Syncope -most likely related to the COVID infection, monitor for neuro changes -CT head reviewed and is normal -Normally the pt is very mobile and active # CKD stage III -Cr is currently 1.4 which appears to be her baseline Hospital Course: Admitted for syncope at home. She has been having diarrhea and not feeling well. Found to be COVID positive in the ED. Patient admitted overnight for IV fluids and imodium. She improved and wanted to go home. Discharged home to finish her 2 more days of paxlovid. Time Spent with Patient Time spent: Greater than 30 minutes Exam Vital Signs (past 8 hours): - 08/30/22 06:00 08/30/22 08:49 08/30/22 10:00 Temperature 98.6 F Pulse Rate 87 Blood Pressure 149/68 H Pulse Oximetry 96 96 Oxygen Delivery Method Room Air Room Air Oxygen Delivery Method Room Air Oxygen Flow Rate 0 Const General: cooperative, healthy appearing, comfortable and well developed Orientation: alert, awake and oriented x3 Other: frequent coughing Resp Effort & Inspection: normal respiratory effort and able to speak in complete sentences Auscultation: clear to auscultation bilaterally Cardio Rate: regular rate Rhythm: regular rhythm GI Palpation: soft and no hepatosplenomegaly Auscultation: normal bowel sounds Skin Rashes: no rashes Neuro General: patient alert, patient awake and moves all extremities Objective Labs 08/30/22 05:10 08/30/22 05:10 Labs: Laboratory Results - last 24 hr 08/29/22 08/29/22 08/29/22 15:20 15:20 15:20 WBC 7.5 RBC 4.36 Hgb 12.7 Hct 37.3 MCV 85.5 MCH 29.2 MCHC 34.1 RDW 13.7 Plt Count 192 Neut % (Auto) 76.1 H Lymph % (Auto) 13.0 L [place] % (Auto) 9.7 Eos % (Auto) 0.3 L Baso % (Auto) 0.9 Neut # (Auto) 5700 Lymph # (Auto) 1000 L [place] # (Auto) 700 Eos # (Auto) 0 Baso # (Auto) 100 PT 12.5 INR 1.1 APTT 32 D-Dimer Sodium 134 L Potassium 4.0 Chloride 101 Carbon Dioxide 26 BUN 17 Creatinine 1.24 H Estimated GFR 45 L BUN/Creatinine Ratio 13.7 Glucose 115 H Lactate Calcium 9.0 Total Bilirubin 2.1 H AST 73 H ALT 55 H Alkaline Phosphatase 64 Total Creatine Kinase 84 Troponin I < 0.012 NT-Pro-B Natriuret Pep Total Protein 7.1 Albumin 4.1 Globulin 3.0 Albumin/Globulin Ratio 1.4 Lipase 205 Procalcitonin 0.22 Stl C. cayetanensis PCR Stool Rotavirus (PCR) Stool Adenovirus (PCR) Stool Astrovirus (PCR) Stool Cryptosporidium PCR Stl E.coli Shiga Tox PCR St Sh/Enteroin Ecoli PCR Stool E coli O157 PCR Stl Enterotoxigenic E PCR Stool EPEC (PCR) Stl E. histolytica PCR Stool Giardia Lamblia PCR Stool Sapovirus (PCR) Stl P. shigelloides PCR St Y.enterocolitica PCR Stool Vibrio (PCR) Stl Vibrio cholerae PCR Stl Enteroaggr Ecoli PCR Stl Norovirus GI/GII PCR Campylobacter (PCR) C. difficile Tox (PCR) SARS-CoV-2 (PCR) Influenza A (RT-PCR) Influenza B (RT-PCR) RSV (PCR) Salmonella (PCR) 08/29/22 08/29/22 08/29/22 15:20 15:20 15:20 WBC RBC Hgb Hct MCV MCH MCHC RDW Plt Count Neut % (Auto) Lymph % (Auto) [place] % (Auto) Eos % (Auto) Baso % (Auto) Neut # (Auto) Lymph # (Auto) [place] # (Auto) Eos # (Auto) Baso # (Auto) PT INR APTT D-Dimer 4933 H Sodium Potassium Chloride Carbon Dioxide BUN Creatinine Estimated GFR BUN/Creatinine Ratio Glucose Lactate 1.0 Calcium Total Bilirubin AST ALT Alkaline Phosphatase Total Creatine Kinase Troponin I NT-Pro-B Natriuret Pep 1080 H Total Protein Albumin Globulin Albumin/Globulin Ratio Lipase Procalcitonin Stl C. cayetanensis PCR Stool Rotavirus (PCR) Stool Adenovirus (PCR) Stool Astrovirus (PCR) Stool Cryptosporidium PCR Stl E.coli Shiga Tox PCR St Sh/Enteroin Ecoli PCR Stool E coli O157 PCR Stl Enterotoxigenic E PCR Stool EPEC (PCR) Stl E. histolytica PCR Stool Giardia Lamblia PCR Stool Sapovirus (PCR) Stl P. shigelloides PCR St Y.enterocolitica PCR Stool Vibrio (PCR) Stl Vibrio cholerae PCR Stl Enteroaggr Ecoli PCR Stl Norovirus GI/GII PCR Campylobacter (PCR) C. difficile Tox (PCR) SARS-CoV-2 (PCR) Influenza A (RT-PCR) Influenza B (RT-PCR) RSV (PCR) Salmonella (PCR) 08/29/22 08/29/22 08/30/22 15:42 17:42 05:10 WBC 8.6 RBC 4.28 Hgb 12.4 Hct 36.8 MCV 86.1 MCH 28.9 MCHC 33.6 RDW 13.5 Plt Count 179 Neut % (Auto) 83.6 H Lymph % (Auto) 7.9 L [place] % (Auto) 8.2 Eos % (Auto) 0.2 L Baso % (Auto) 0.1 Neut # (Auto) 7100 H Lymph # (Auto) 700 L [place] # (Auto) 700 Eos # (Auto) 0 Baso # (Auto) 0 PT INR APTT D-Dimer Sodium Potassium Chloride Carbon Dioxide BUN Creatinine Estimated GFR BUN/Creatinine Ratio Glucose Lactate Calcium Total Bilirubin AST ALT Alkaline Phosphatase Total Creatine Kinase Troponin I NT-Pro-B Natriuret Pep Total Protein Albumin Globulin Albumin/Globulin Ratio Lipase Procalcitonin Stl C. cayetanensis PCR Not detected Stool Rotavirus (PCR) Not detected Stool Adenovirus (PCR) Not detected Stool Astrovirus (PCR) Not detected Stool Cryptosporidium PCR Not detected Stl E.coli Shiga Tox PCR Not detected St Sh/Enteroin Ecoli PCR Not detected Stool E coli O157 PCR Not Reportable Stl Enterotoxigenic E PCR Not detected Stool EPEC (PCR) Not detected Stl E. histolytica PCR Not detected Stool Giardia Lamblia PCR Not detected Stool Sapovirus (PCR) Not detected Stl P. shigelloides PCR Not detected St Y.enterocolitica PCR Not detected Stool Vibrio (PCR) Not detected Stl Vibrio cholerae PCR Not detected Stl Enteroaggr Ecoli PCR Not detected Stl Norovirus GI/GII PCR Not detected Campylobacter (PCR) Not detected C. difficile Tox (PCR) Not detected SARS-CoV-2 (PCR) Positive H Influenza A (RT-PCR) Flu a negative Influenza B (RT-PCR) Flu b negative RSV (PCR) Negative Salmonella (PCR) Not detected 08/30/22 08/30/22 05:10 07:54 WBC RBC Hgb Hct MCV MCH MCHC RDW Plt Count Neut % (Auto) Lymph % (Auto) [place] % (Auto) Eos % (Auto) Baso % (Auto) Neut # (Auto) Lymph # (Auto) [place] # (Auto) Eos # (Auto) Baso # (Auto) PT INR APTT D-Dimer Sodium 136 L Potassium 3.5 Chloride 104 Carbon Dioxide 25 BUN 15 Creatinine 1.19 H Estimated GFR 48 L BUN/Creatinine Ratio 12.6 Glucose 100 Lactate Calcium 8.3 L Total Bilirubin AST ALT Alkaline Phosphatase Total Creatine Kinase Troponin I NT-Pro-B Natriuret Pep Total Protein Albumin Globulin Albumin/Globulin Ratio Lipase Procalcitonin 0.18 Stl C. cayetanensis PCR Stool Rotavirus (PCR) Stool Adenovirus (PCR) Stool Astrovirus (PCR) Stool Cryptosporidium PCR Stl E.coli Shiga Tox PCR St Sh/Enteroin Ecoli PCR Stool E coli O157 PCR Stl Enterotoxigenic E PCR Stool EPEC (PCR) Stl E. histolytica PCR Stool Giardia Lamblia PCR Stool Sapovirus (PCR) Stl P. shigelloides PCR St Y.enterocolitica PCR Stool Vibrio (PCR) Stl Vibrio cholerae PCR Stl Enteroaggr Ecoli PCR Stl Norovirus GI/GII PCR Campylobacter (PCR) C. difficile Tox (PCR) SARS-CoV-2 (PCR) Influenza A (RT-PCR) Influenza B (RT-PCR) RSV (PCR) Salmonella (PCR) [facility] Medical History Acquired hypothyroidism Age-related osteoporosis without current pathological fracture Anemia (~2001) Arthritis Kelly's esophagus determined by endoscopy (2018) Cataracts, bilateral (~2015) Chicken pox (~1957) Coronary artery disease Diverticulosis (2018) Essential hypertension Foot pain Fractures Gallstones (~1983) GERD (gastroesophageal reflux disease) GERD without esophagitis Heavy menstrual period (~1958) History of kidney cancer (~2014) History of renal cell carcinoma Inflammatory bowel disease Knee pain, bilateral Left bundle branch block (2018) Leg cramps (~2009) Measles (~1965) Microscopic colitis Microscopic hematuria Mumps (~1970) Osteoarthritis (~2009) Painful menstrual periods (~1958) Plantar warts (~1960) Pneumonia 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 Restless legs syndrome Scoliosis (~1983) Stage 3b chronic kidney disease (CKD) Synovial cyst of popliteal space [[place]], right knee Systolic CHF, chronic Thyroid disease Vision disorder Surgical History Anesthesia History of arthroscopic knee surgery History of bursectomy History of eye surgery (~2014) History of fusion of cervical spine (~1993) History of knee replacement (~2012) History of nephrectomy (12/27/14) History of third molar tooth extraction (~1965) Macular pucker (~2015) Status post adenoidectomy (~1957) Status post cholecystectomy (~1983) Status post tubal ligation (~1983) Family History Father Heart disease Hypertension Grandmother Cancer Mother Cancer Migraines Inflammatory bowel disease Grandmother No problems noted. Social History details: (Les) household members: spouse Smoking Status: Never smoker alcohol intake: former Discharge Plan Discharge Plan Patient Disposition: Home Provider Discharge Comment: You were admitted for fainting at home due to COVID. Take Imodium for your diarrhea. Try to stay hydrated to prevent dehydration. Please finish your 2 more days of Paxlovid. Discharge orders & Medications Prescriptions: Continued calcium citrate-vitamin D3 [Citracal + D Maximum] 1,500 MG/250 IU tablet 1 tab PO DAILY Qty: 0 melatonin 3 mg tablet 3 mg PO BEDTIME PRN (Reason: sleep) Qty: 90 0RF uucaywzq-qqm-UO-lycopen-lutein [Centrum Silver] 0.4-300-250 mg-mcg-mcg tablet 1 tab PO DAILY Qty: 90 0RF Paxlovid 150-100 mg tablets,dose pack See Rx Instructions PO PER PKG DIR Qty: 20 0RF Rx Instructions: PO PER PKG DIR magnesium oxide 500 mg capsule 500 mg PO DAILY Citrucel (sucrose) Powder 1 tbsp PO DAILY diclofenac sodium [Voltaren] 1 % gel 2 g topical TID PRN (Reason: Pain, Mild) Rx Instructions: apply to wrist and knees atorvastatin 20 mg tablet 20 mg PO DAILY lisinopril 2.5 mg tablet 2.5 mg PO DAILY metoprolol succinate 25 mg tablet extended release 24 hr 12.5 mg PO DAILY famotidine [Pepcid AC] 20 mg tablet 20 mg PO DAILY levothyroxine 25 mcg tablet 25 mcg PO DAILY Qty: 90 3RF raloxifene 60 mg tablet 60 mg PO DAILY Qty: 90 3RF omega-3 fatty acids-fish oil [Fish Oil] 360-1,200 mg capsule 1 cap PO DAILY racamoh-ttvvnuuyjmtnu-zunesuvt [Excedrin Migraine] 1 tab PO DAILY PRN (Reason: pain) Slow Fe 142 mg (45 mg iron) tablet extended release 142 mg PO BID Follow up/Referrals: Jose Fitzgerald MD [Primary Care Provider] - 2 Weeks Visit Report/Discharge Packet Stand Alone Forms: Patient Portal/API, Stroke Signs & Symptoms Discharge Data Primary Care Provider: Jose Fitzgerald V Attending Provider: Austin Cabrrea Admit Date/Time: 08/29/22 18:38 Quality VTE Deep Vein Thrombosis/Pulmonary Embolism Present on Admission: No
--- NOTE | 2022-08-30 12:52 | PC.NURSE ---
Day shift: Went over discharge information with patient. Patient stated understanding and all questions answered. Discussed isolation while covid positive. D/c'ed both PIVs prior to discharge. Pt escorted to exit via wheelchair - mask worn. 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
== END 2022-08-30 12:54 | disposition home or self-care (01) ==
LOC: ED 18:35 → AC 18:40
PROVIDERS: Internal Medicine; Admitting Provider Student in an Organized Health Care Education/Training Program; Emergency Provider Emergency Medicine; Family Provider Internal Medicine; PCP Internal Medicine; Referring Provider Emergency Medicine; Visit Provider Student in an Organized Health Care Education/Training Program
DX: U07.1 COVID-19 (principal); R55 Syncope and collapse; I10 Essential (primary) hypertension; E78.5 Hyperlipidemia, unspecified; E03.9 Hypothyroidism, unspecified; I12.9 Hypertensive chronic kidney disease with stage 1 through stage 4 chronic kidney disease, or unspecified chronic kidney disease; N18.30 Chronic kidney disease, stage 3 unspecified
CPT/HCPCS: 0241U; 12002; 36415; 70450; 71045; 71275; 74177; 80048; 80053; 81003; 82550; 83605; 83690; 83880; 84145; 84484; 85025; 85379; 85610; 85730; 87040; 87507; 93005; 96374; 96376; 99284; G0378; J2405; Q9967

== ENCOUNTER → 2022-09-06 10:40 | Outpatient (CLI) | payer MEDICARE, SELFPAY ==
[2022-08-29 21:35] VITALS: BMI 25.0
--- NOTE | 2022-09-06 10:45 | DI.RAD.S_ITS ---
PROCEDURE: XR THORACIC SPINE 2V INDICATIONS: OSTEOPOROSIS TECHNIQUE: 3 views of the thoracic spine were acquired. COMPARISON: None. FINDINGS: Bones: Chronic appearing anterior wedge compression deformity involving T11 vertebral body is seen with up to 30% loss of T11 vertebral body height anteriorly. Degenerative endplate changes are noted throughout thoracic spine. No acute compression fracture or spondylolisthesis. Soft tissues: No paravertebral stripe thickening. IMPRESSION: Chronic appearing anterior wedge compression deformity involving superior endplate of T11. Degenerative disc disease throughout thoracic spine. No acute compression fracture or spondylolisthesis. Dictated by: Diego Torres M.D. on 09/06/2022 at 12:46 Approved by: Diego Torres M.D. on 09/06/2022 at 12:52
--- NOTE | 2022-09-06 10:45 | DI.RAD.S_ITS ---
PROCEDURE: XR LUMBAR SPINE 2-3V INDICATIONS: OSTEOPOROSIS TECHNIQUE: 3 views of the lumbar spine were acquired. COMPARISON: [facility], , L-SPINE 2-3 VIEWS, 06/21/2010, 10:38. FINDINGS: Bones: 5 fyy-jyi-hgsbhnp vertebrae are present. There is gyrq-sr-uhpjivmt levoscoliosis centered at L2-3 level. 1.4 cm anterolisthesis of L4 on L5 is seen. Degenerative endplate changes and bilateral facet arthrosis throughout lumbar spine is noted. No vertebral body compression fractures. No suspicious bony lesions. Soft tissues: Overlying bowel gas pattern is normal. No suspicious soft tissue calcifications. IMPRESSION: Degenerative disc disease throughout lumbar spine. Ntsz-pl-jcnnxvgh levoscoliosis and 1.4 cm anterolisthesis of L4 on L5 as above. No acute compression fracture. Dictated by: Diego Torres M.D. on 09/06/2022 at 12:45 Approved by: Diego Torres M.D. on 09/06/2022 at 12:46
[2022-09-06 12:48] LABS: BUN Creatinine Ratio 18.4 (6-22); Blood Urea Nitrogen 32 mg/dL (7-17); Calcium 9.7 mg/dL (8.4-10.2); Carbon Dioxide 29 mmol/L (22-32); Chloride 99 mmol/L (98-107); Estimated Glomerular Filt Rate 30 mL/min (>60); Glucose 89 mg/dL (80-110); HEMOLYSIS < 15 (0-50); Potassium 4.9 mmol/L (3.4-5.1); Sodium 136 mmol/L (137-145)
[2022-09-07 09:09] LABS: Parathyroid Hormone Int 63 pg/mL (15-65)
== END ==
PROVIDERS: Family Provider Internal Medicine; PCP Internal Medicine; Referring Provider Internal Medicine Endocrinology, Diabetes & Metabolism; Visit Provider Internal Medicine Endocrinology, Diabetes & Metabolism
DX: M81.0 Age-related osteoporosis without current pathological fracture (principal); M51.36 Other intervertebral disc degeneration, lumbar region; M51.34 Other intervertebral disc degeneration, thoracic region; M43.16 Spondylolisthesis, lumbar region; M41.9 Scoliosis, unspecified; M43.9 Deforming dorsopathy, unspecified
CPT/HCPCS: 36415; 72070; 72100; 80048; 82306; 83970

== ENCOUNTER → 2022-09-08 11:11 | Outpatient (CLI) | payer MEDICARE, SELFPAY ==
[2022-08-29 21:35] VITALS: BMI 25.0
[2022-09-14 17:41] LABS: N-telo/Creat. Ratio 37 (0-89); N-telopeptide 112 nmol BCE (Not Estab.)
== END ==
PROVIDERS: Family Provider Internal Medicine; PCP Internal Medicine; Referring Provider Internal Medicine Endocrinology, Diabetes & Metabolism; Visit Provider Internal Medicine Endocrinology, Diabetes & Metabolism
DX: M81.0 Age-related osteoporosis without current pathological fracture (principal)
CPT/HCPCS: 82523; 82540; 82570

== ENCOUNTER → 2022-11-12 08:59 | Outpatient (CLI) | payer MEDICARE, SELFPAY ==
[2022-08-29 21:35] VITALS: BMI 25.0
[2022-11-12 11:40] LABS: Alanine Aminotransferase 40 IU/L (<35); Albumin 4.2 g/dL (3.5-5.0); Albumin Globulin Ratio 1.5 (1.0-2.8); Alkaline Phosphatase 53 U/L (38-126); Aspartate Aminotransferase 33 IU/L (14-36); BUN Creatinine Ratio 18.3 (6-22); Bilirubin Total 1.5 mg/dL (0.2-1.3); Blood Urea Nitrogen 22 mg/dL (7-17); Calcium 9.8 mg/dL (8.4-10.2); Carbon Dioxide 29 mmol/L (22-32); Chloride 105 mmol/L (98-107); Cholesterol 150 mg/dL (140-199); Estimated Glomerular Filt Rate 47 mL/min (>60); Globulin 2.8 g/dL (1.7-4.1); Glucose 87 mg/dL (80-110); HDL Cholesterol 60 mg/dL (40-60); HEMOLYSIS < 15 (0-50); LDL Cholesterol Calculated 71 mg/dL (<100); Sodium 138 mmol/L (137-145); Triglycerides 93 mg/dL (35-150)
[2022-11-12 11:41] LABS: Potassium 5.5 mmol/L (3.4-5.1)
== END ==
PROVIDERS: Family Provider Internal Medicine; PCP Internal Medicine; Referring Provider Internal Medicine Cardiovascular Disease; Visit Provider Internal Medicine Cardiovascular Disease
DX: E03.9 Hypothyroidism, unspecified (principal); E78.5 Hyperlipidemia, unspecified; I51.9 Heart disease, unspecified; N18.32 Chronic kidney disease, stage 3b; R79.89 Other specified abnormal findings of blood chemistry
CPT/HCPCS: 36415; 80053; 80061; 84443

== ENCOUNTER → 2022-11-16 09:25 | Outpatient (CLI) | payer MEDICARE, SELFPAY ==
[2022-08-29 21:35] VITALS: BMI 25.0
[2022-11-16 10:20] LABS: BUN Creatinine Ratio 24.2 (6-22); Blood Urea Nitrogen 29 mg/dL (7-17); Calcium 9.7 mg/dL (8.4-10.2); Carbon Dioxide 27 mmol/L (22-32); Chloride 104 mmol/L (98-107); Estimated Glomerular Filt Rate 47 mL/min (>60); Glucose 86 mg/dL (80-110); HEMOLYSIS < 15 (0-50); Potassium 4.6 mmol/L (3.4-5.1); Sodium 137 mmol/L (137-145)
== END ==
PROVIDERS: Family Provider Internal Medicine; PCP Internal Medicine; Referring Provider Internal Medicine Cardiovascular Disease; Visit Provider Internal Medicine Cardiovascular Disease
DX: I13.10 Hypertensive heart and chronic kidney disease without heart failure, with stage 1 through stage 4 chronic kidney disease, or unspecified chronic kidney disease (principal)
CPT/HCPCS: 36415; 80048

== ENCOUNTER → 2022-12-26 13:16 | Outpatient (CLI) | payer MEDICARE, SELFPAY ==
[2022-08-29 21:35] VITALS: BMI 25.0
[2022-12-26 14:40] LABS: Albumin 4.4 g/dL (3.5-5.0); BUN Creatinine Ratio 25.6 (6-22); Blood Urea Nitrogen 30 mg/dL (7-17); Carbon Dioxide 27 mmol/L (22-32); Chloride 103 mmol/L (98-107); Estimated Glomerular Filt Rate 49 mL/min (>60); Glucose 97 mg/dL (80-110); HEMOLYSIS < 15 (0-50); Magnesium 2.2 mg/dL (1.6-2.3); Phosphorous 4.2 mg/dL (2.8-4.1); Potassium 4.6 mmol/L (3.4-5.1); Sodium 137 mmol/L (137-145); Uric Acid 6.3 mg/dL (2.5-6.2)
[2022-12-26 16:04] LABS: Vitamin D 25 Hydroxy (D3) 45.3 ng/mL (30.0-100.0)
[2022-12-26 21:31] LABS: Creatinine Urine Random 32.2 mg/dL
[2022-12-26 21:41] LABS: Microalbumin Urine Random < 0.6 mg/dL (0-1.6)
[2022-12-28 09:18] LABS: Parathyroid Hormone Int 100 pg/mL (15-65)
== END ==
PROVIDERS: Family Provider Internal Medicine; PCP Internal Medicine; Referring Provider Internal Medicine Nephrology; Visit Provider Internal Medicine Nephrology
DX: N18.31 Chronic kidney disease, stage 3a (principal)
CPT/HCPCS: 36415; 80048; 82040; 82043; 82306; 82570; 83735; 83970; 84100; 84550

== ENCOUNTER 2023-03-17 21:51 | Emergency (ER) | payer MEDICARE, SELFPAY ==
[2022-08-29 21:35] VITALS: BMI 25.0
[2023-03-17 21:54] VITALS: BP 141/63; PULSE 103; RESP 18; TEMP 38.4; O2SAT 98; BMI 26.6
--- NOTE | 2023-03-17 22:05 | DI.RAD.S_ITS ---
PROCEDURE: XR CHEST 1V INDICATIONS: Shortness of breath TECHNIQUE: One view of the chest was acquired. COMPARISON: [facility], CR, XR CHEST 1V, 08/29/2022, 15:31. FINDINGS: Surgical changes and devices: None. Lungs and pleura: Lungs are clear. No pleural effusions or pneumothorax. Mediastinum: Mediastinal contours appear normal. Heart size is normal. Bones and chest wall: No suspicious bony lesions. Overlying soft tissues appear unremarkable. IMPRESSION: No acute cardiopulmonary abnormality is seen. Dictated by: Neeta Thomas M.D. on 03/17/2023 at 23:38 Approved by: Neeta Thomas M.D. on 03/17/2023 at 23:38
[2023-03-17] MEDS: ONDANSETRON 4 MG/2 ML INJ IV (22:15)
[2023-03-17 22:25] LABS: Add Manual Diff / Slide Review NO; Basophils Absolute Auto 0 /uL (0-100); Basophils Percent Auto 0.5 % (0-2); Eosinophils Absolute Auto 0 /uL (0-450); Eosinophils Percent Auto 0.3 % (2-4); Hematocrit 39.8 % (36-46); Hemoglobin 13.2 g/dL (12.0-16.0); Lymphocytes Absolute Auto 600 /uL (1100-4500); Lymphocytes Percent Auto 7.3 % (25-40); Mean Corpuscular HGB Conc 33.2 % (30-36); Mean Corpuscular Hemoglobin 28.1 PG (26-34); Mean Corpuscular Volume 84.5 fL (80-100); Monocytes Absolute Auto 800 /uL (0-900); Monocytes Percent Auto 9.7 % (3-14); Neutrophils Absolute Auto 6700 /uL (1500-7000); Neutrophils Percent Auto 82.2 % (50-75); Platelet Count 182 X10^3/uL (150-400); Red Blood Cell Count 4.71 X10^6/uL (4.0-5.2); Red Cell Distribution Width 14.1 % (11.6-14.8); White Blood Cell Count 8.1 X10^3/uL (4.5-11.0)
[2023-03-17 22:28] VITALS: BP 132/67; PULSE 83; RESP 23; O2SAT 84
[2023-03-17 22:28] LABS: Prothrombin Time 11.9 SECONDS (9.4-12.5)
[2023-03-17 22:30] VITALS: BP 146/78; PULSE 82; RESP 23; O2SAT 97
[2023-03-17 22:33] LABS: Alanine Aminotransferase 37 IU/L (<35); Albumin 4.4 g/dL (3.5-5.0); Albumin Globulin Ratio 1.4 (1.0-2.8); Alkaline Phosphatase 65 U/L (38-126); Aspartate Aminotransferase 47 IU/L (14-36); BUN Creatinine Ratio 16.2 (6-22); Blood Urea Nitrogen 17 mg/dL (7-17); Calcium 9.6 mg/dL (8.4-10.2); Carbon Dioxide 23 mmol/L (22-32); Chloride 101 mmol/L (98-107); Estimated Glomerular Filt Rate 55 mL/min (>60); Globulin 3.2 g/dL (1.7-4.1); Glucose 110 mg/dL (80-110); HEMOLYSIS < 15 (0-50); Potassium 3.8 mmol/L (3.4-5.1); Sodium 133 mmol/L (137-145); Total Protein 7.6 g/dL (6.3-8.2)
[2023-03-17 22:44] LABS: NT-proBNP (BNP-Adult 18+) 758 pg/mL (<450); Troponin I < 0.012 ng/mL (0.01-0.034)
[2023-03-17 22:44] LABS: Influenza A - CEPHEID Flu A NEGATIVE (NEGATIVE); Influenza B - CEPHEID Flu B NEGATIVE (NEGATIVE); Respiratory Syncytial Virus Negative (Negative)
[2023-03-17 22:46] LABS: COVID-19 CEPHEID 4-PLEX PCR Negative (Negative)
--- NOTE | 2023-03-18 00:20 | PC.NURSE ---
Stool sample obtained, provider advised.
[2023-03-18] MEDS: SODIUM CHLORIDE 0.9% 1,000 ML 1000 ML IV (01:03)
--- NOTE | 2023-03-18 01:05 | ED.SOB ---
HPI - SOB/Dyspnea General Chief Complaint: Shortness of Breath/Dyspnea Stated Complaint: SOB NVD Time Seen by Provider: 03/18/23 00:40 Source: patient and family Mode of arrival: Wheelchair Limitations: no limitations History of Present Illness HPI Narrative: This is a 77-year-old female with a history of anxiety that causes diarrhea who comes in complaining of shortness of breath. Says it started yesterday she felt hot and cold had some headache and was dizzy also had some nausea and vomiting yesterday. Developed some shortness of breath with wheezing. That is on now resolved. She reports tactile fevers, headache is better she has developed diarrhea which she says is typical when she has ?anxiety attacks. Diarrhea is not bloody she does not have abdominal pain does not have urinary symptoms. Related Data Home Medications Medication Instructions Recorded Confirmed calcium citrate 315 mg 1 tab PO DAILY ##0 10/09/16 11/08/22 calcium-vitamin D3 6.25 mcg (250 unit) tablet (Citracal + Vitamin D Maximum) ferrous sulfate 142 mg (45 mg 142 mg PO BID 09/23/18 11/08/22 iron) tablet,extended release (Slow Fe) diclofenac sodium 1 % topical gel 2 g topical TID PRN Pain, Mild 03/15/20 11/08/22 (Voltaren) magnesium oxide 500 mg capsule 500 mg PO DAILY 03/15/20 11/08/22 methylcellulose (with sugar) oral 1 tbsp PO DAILY 03/15/20 11/08/22 powder (Citrucel (sucrose) oral powder) atorvastatin 20 mg tablet 20 mg PO DAILY 09/15/20 11/08/22 lisinopril 2.5 mg tablet 2.5 mg PO DAILY 09/16/20 11/08/22 metoprolol succinate 25 mg 12.5 mg PO DAILY 09/16/20 11/08/22 tablet,extended release 24 hr famotidine 20 mg tablet (Pepcid AC) 20 mg PO DAILY 10/20/21 11/08/22 dwapbfj-tmytmpzlybylp-ltraaiwl 1 tab PO DAILY PRN pain 05/07/22 11/08/22 [Excedrin Migraine] omega-3 fatty acids-fish oil 360 1 cap PO DAILY 05/07/22 11/08/22 mg-1,200 mg capsule (Fish Oil) denosumab 60 mg/mL subcutaneous 60 mg SUBCUT [id number] 11/08/22 11/08/22 syringe (Prolia) Previous Rx's Medication Instructions Recorded melatonin 3 mg tablet 3 mg PO BEDTIME PRN sleep #90 tabs 08/20/17 goqwqdsu-gms-xxqyi acid 0.4 1 tab PO DAILY #90 tabs 08/20/17 mg-lycopene 300 mcg-lutein 250 mcg tablet (Centrum Silver) levothyroxine 25 mcg tablet 25 mcg PO DAILY #90 tabs 12/17/22 Allergies Allergy/AdvReac Type Severity Reaction Status Date / Time codeine Allergy Unknown NAUSEA Verified 11/08/22 07:37 erythromycin base Allergy Unknown NAUSEA Verified 11/08/22 07:37 Penicillins Allergy Unknown YEAST Verified 11/08/22 07:37 INFECTION lansoprazole AdvReac Intermediate worsened Verified 11/08/22 07:37 kidney function Patient History Medical History Acquired hypothyroidism Age-related osteoporosis without current pathological fracture Anemia (~2001) Arthritis Klely's esophagus determined by endoscopy (2018) Cataracts, bilateral (~2015) Chicken pox (~1957) Coronary artery disease Diverticulosis (2018) Essential hypertension Foot pain Fractures Gallstones (~1983) GERD (gastroesophageal reflux disease) GERD without esophagitis Heavy menstrual period (~1958) History of kidney cancer (~2014) History of renal cell carcinoma Inflammatory bowel disease Knee pain, bilateral Left bundle branch block (2018) Leg cramps (~2009) Measles (~1965) Microscopic colitis Microscopic hematuria Mumps (~1970) Osteoarthritis (~2009) Painful menstrual periods (~1958) Panic attacks Plantar warts (~1960) Pneumonia 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 Restless legs syndrome Scoliosis (~1983) Stage 3b chronic kidney disease (CKD) Synovial cyst of popliteal space [[place]], right knee Systolic CHF, chronic Thyroid disease Vision disorder Surgical History Anesthesia History of arthroscopic knee surgery History of bursectomy History of eye surgery (~2014) History of fusion of cervical spine (~1993) History of knee replacement (~2012) History of nephrectomy (12/27/14) History of third molar tooth extraction (~1965) Macular pucker (~2015) Status post adenoidectomy (~1957) Status post cholecystectomy (~1983) Status post tubal ligation (~1983) Family History Father Heart disease Hypertension Grandmother Cancer Mother Cancer Migraines Inflammatory bowel disease Grandmother No problems noted. Social History details: (Les) household members: spouse Smoking Status: Never smoker alcohol intake: former Smoking Status: Never smoker alcohol intake frequency: holidays/special occasions only Substance Use Type: does not use Exam Narrative Exam Narrative: Alert, no acute distress, having diarrhea HEENT: Normocephalic, atraumaitic moist mucus membranes Neck: Supple no midline tenderness Lungs: Clear to ascultaion, no respiratory distress, speaking in full sentences Heart: Regular rhythm and rate no murmur Abdomen: Normal bowel sounds, soft and nontender no CVAT Extremeties: Full range of motion no deformity Neuro: Alert and oriented, normal speech moves x4 Initial Vital Signs Initial Vital Signs: Vital Signs Temperature 101.1 F H 03/17/23 21:54 Pulse Rate 103 H 03/17/23 21:54 Respiratory Rate 18 03/17/23 21:54 Blood Pressure 141/63 H 03/17/23 21:54 Pulse Oximetry 98 03/17/23 21:54 Oxygen Delivery Method Room Air 03/17/23 21:54 Temp of a 101.1? and heart rate of 103 noted at triage Course Orders Ordered: ED Orders 03/17/23 21:57 Covid-19 + FLU A/B + RSV - PCR Stat 03/17/23 22:05 XR chest 1V Stat EKG-12 Lead Stat Measure peak expiratory flow ONCE RT Consult Eval and Treat NOW 03/17/23 22:08 Complete Blood Count AUTO DIFF Stat Comprehensive Metabolic Panel Stat Lactate (Lactic Acid) Stat NT-proBNP (BNP-Adult 18+) Stat Prothrombin Time INR Stat Troponin I Stat 03/18/23 00:10 GI Panel (Film Array) Stat Discontinued Medications Sodium Chloride (Normal Saline 0.9%) 1,000 mls @ 1,000 mls/hr IV BOLUS ONE Stop: 03/18/23 01:47 Last Infusion: 03/18/23 01:50 Dose: Infused Documented By: Admin: 03/18/23 01:03 Dose: 1,000 mls/hr Documented By: Loperamide HCl (Loperamide 2 Mg Capsule) 4 mg PO NOW ONE Stop: 03/18/23 01:05 Last Admin: 03/18/23 01:14 Dose: 4 mg Documented By: Ondansetron HCl (Ondansetron 4 Mg/2 Ml Inj) 4 mg IV NOW ONE Stop: 03/17/23 22:06 Last Admin: 03/17/23 22:15 Dose: 4 mg Documented By: SB Vital Signs Vital signs: Vital Signs - 8 hr 03/17/23 21:54 03/17/23 22:28 03/17/23 22:28 Temperature 101.1 F H Pulse Rate 103 H 83 Respiratory Rate 18 23 Blood Pressure 141/63 H 132/67 Pulse Oximetry 98 84 L Oxygen Delivery Method Room Air 03/17/23 22:30 03/17/23 22:30 03/18/23 01:53 Temperature Pulse Rate 82 79 Respiratory Rate 23 47 H Blood Pressure 146/78 H Pulse Oximetry 97 93 Oxygen Delivery Method MDM - SOB/Dyspnea Lab Data Lab results narrative: CBC with diff is unremarkable, on chemistries she has a total bilirubin of 2.0, has minimal elevations in AST and ALT normal alkaline phosphatase I considered but do not suspect cholecystitis, lactic is normal, troponin is normal, respiratory man who panel is normal Stool PCR is positive for enteropathogenic E coli 03/17/23 22:08 03/17/23 22:08 Labs: Lab Results 03/17/23 03/17/23 03/18/23 Range/Units 21:57 22:08 00:10 WBC 8.1 (4.5-11.0) X10^3/uL RBC 4.71 (4.0-5.2) X10^6/uL Hgb 13.2 (12.0-16.0) g/dL Hct 39.8 (36-46) % MCV 84.5 (80-100) fL MCH 28.1 (26-34) PG MCHC 33.2 (30-36) % RDW 14.1 (11.6-14.8) % Plt Count 182 (150-400) X10^3/uL Neut % (Auto) 82.2 H (50-75) % Lymph % (Auto) 7.3 L (25-40) % [place] % (Auto) 9.7 (3-14) % Eos % (Auto) 0.3 L (2-4) % Baso % (Auto) 0.5 (0-2) % Neut # (Auto) 6700 (2175-7396) /uL Lymph # (Auto) 600 L (2153-6488) /uL [place] # (Auto) 800 (0-900) /uL Eos # (Auto) 0 (0-450) /uL Baso # (Auto) 0 (0-100) /uL PT 11.9 (9.4-12.5) SECONDS INR 1.0 (0.9-1.3) Sodium 133 L (137-145) mmol/L Potassium 3.8 (3.4-5.1) mmol/L Chloride 101 (98-107) mmol/L Carbon Dioxide 23 (22-32) mmol/L BUN 17 (7-17) mg/dL Creatinine 1.05 H (0.52-1.04) mg/dL Estimated GFR 55 L (>60) mL/min BUN/Creatinine Ratio 16.2 (6-22) Glucose 110 (80-110) mg/dL Lactate 1.0 (0.7-2.1) mmol/L Calcium 9.6 (8.4-10.2) mg/dL Total Bilirubin 2.0 H (0.2-1.3) mg/dL AST 47 H (14-36) IU/L ALT 37 H (<35) IU/L Alkaline Phosphatase 65 (38-126) U/L Troponin I < 0.012 (0.01-0.034) ng/mL NT-Pro-B Natriuret Pep 758 H (<450) pg/mL Total Protein 7.6 (6.3-8.2) g/dL Albumin 4.4 (3.5-5.0) g/dL Globulin 3.2 (1.7-4.1) g/dL Albumin/Globulin Ratio 1.4 (1.0-2.8) Stl C. cayetanensis PCR Not detected (Not Detect) Stool Rotavirus (PCR) Not detected (Not Detect) Stool Adenovirus (PCR) Not detected (Not Detect) Stool Astrovirus (PCR) Not detected (Not Detect) Stool Cryptosporidium PCR Not detected (Not Detect) Stl E.coli Shiga Tox PCR Not detected (Not Detect) St Sh/Enteroin Ecoli PCR Not detected (Not Detect) Stl Enterotoxigenic E PCR Not detected (Not Detect) Stool EPEC (PCR) Detected (Not Detect) Stl E. histolytica PCR Not detected (Not Detect) Stool Giardia Lamblia PCR Not detected (Not Detect) Stool Sapovirus (PCR) Not detected (Not Detect) Stl P. shigelloides PCR Not detected (Not Detect) St Y.enterocolitica PCR Not detected (Not Detect) Stool Vibrio (PCR) Not detected (Not Detect) Stl Vibrio cholerae PCR Not detected (Not Detect) Stl Enteroaggr Ecoli PCR Not detected (Not Detect) Stl Norovirus GI/GII PCR Not detected (Not Detect) Campylobacter (PCR) Not detected (Not Detect) C. difficile Tox (PCR) Not detected (Not Detect) SARS-CoV-2 (PCR) Negative (Negative) Influenza A (RT-PCR) Flu a negative (NEGATIVE) Influenza B (RT-PCR) Flu b negative (NEGATIVE) RSV (PCR) Negative (Negative) Salmonella (PCR) Not detected (Not Detect) Imaging Data Chest x-ray: My Impression: No acute findings on my independent review Radiologist's Impression: Radiologist report indicates no acute cardiopulmonary disease MDM Narrative Medical decision making narrative: 77-year-old female with an acute febrile illness accompanied by GI symptoms. She also reported shortness of breath although she has not hypoxic and not have an infiltrate on her chest x-ray. Presentation is most consistent with an acute viral illness. Did not have chest pain has a fever and GI symptoms I do not think that this is cardiac. Abdomen is completely nontender, I do not suspect cholecystitis, appendicitis, bowel obstruction or pancreatitis. While she is testing negative for COVID and influenza, with her fever and respiratory symptoms I think that these are certainly possible however given her overall nontoxic appearance I do not think that repeat testing is indicated. I did send a GI panel. I started her on Imodium which is her typical response to these episodes of diarrhea. Give her a L of fluid patient appears safe for discharge. Results of stool PCR were obtained just prior to patient's discharge. She is positive for enteropathogenic E coli. Review up-to-date recommendations, suggest that this should not routinely be treated with antibiotics patient overall looks well and will continue with supportive care. They were advised of findings and recommendation to follow up with her primary care doctor if symptoms are persisting. They understand that they can always return to the emergency department if getting worse Discharge Plan Departure Patient Disposition: Home Clinical Impression: Nausea & vomiting Qualifiers: Vomiting type: unspecified Qualified Code(s): R11.2 - Nausea with vomiting, unspecified Dyspnea Qualifiers: Dyspnea type: unspecified Qualified Code(s): R06.00 - Dyspnea, unspecified Activity Restrictions/Additional Instructions: Emergency department workup today is reassuring. I think it is safe to go home and continue previous home medications including using Imodium as needed for diarrhea. You have a fear today without evidence of a serious bacterial infection, I think this is likely a viral infection although you have tested negative for influenza and COVID. Rest and get adequate fluids, use acetaminophen and/or ibuprofen at usual otvg-fji-upedids doses and frequencies as needed for fevers and body aches and headaches. If you are unable to keep liquids down or having increasing abdominal pain or increasing shortness of breath recheck in the emergency department. Follow up soon with your primary care provider for a recheck. Prescriptions: No Action calcium citrate-vitamin D3 [Citracal + D Maximum] 1,500 MG/250 IU tablet 1 tab PO DAILY Qty: 0 melatonin 3 mg tablet 3 mg PO BEDTIME PRN (Reason: sleep) Qty: 90 0RF sstagijw-wie-PO-lycopen-lutein [Centrum Silver] 0.4-300-250 mg-mcg-mcg tablet 1 tab PO DAILY Qty: 90 0RF levothyroxine 25 mcg tablet 25 mcg PO DAILY Qty: 90 3RF magnesium oxide 500 mg capsule 500 mg PO DAILY Citrucel (sucrose) Powder 1 tbsp PO DAILY diclofenac sodium [Voltaren] 1 % gel 2 g topical TID PRN (Reason: Pain, Mild) Rx Instructions: apply to wrist and knees atorvastatin 20 mg tablet 20 mg PO DAILY lisinopril 2.5 mg tablet 2.5 mg PO DAILY metoprolol succinate 25 mg tablet extended release 24 hr 12.5 mg PO DAILY famotidine [Pepcid AC] 20 mg tablet 20 mg PO DAILY omega-3 fatty acids-fish oil [Fish Oil] 360-1,200 mg capsule 1 cap PO DAILY qnitroj-eehbbnemyqcyc-btxsmumd [Excedrin Migraine] 1 tab PO DAILY PRN (Reason: pain) Slow Fe 142 mg (45 mg iron) tablet extended release 142 mg PO BID Prolia 60 mg/mL syringe 60 mg SUBCUT [id number] Referrals: Jose Fitzgerald MD [Primary Care Provider] - Stand Alone Forms: Patient Portal/API
[2023-03-18] MEDS: LOPERAMIDE 2 MG CAPSULE 4 MG PO (01:14)
[2023-03-18 01:43] LABS: Adenovirus F 40/41 Not Detected (Not Detect); Astrovirus Not Detected (Not Detect); Campylobacter Not Detected (Not Detect); Clostridium difficile toxin AB Not Detected (Not Detect); Cryptosporidium Not Detected (Not Detect); Cyclospora cayetanensis Not Detected (Not Detect); Entamoeba histolytica Not Detected (Not Detect); Enteroaggregative E.coli Not Detected (Not Detect); Enteropathogenic E.coli Detected (Not Detect); Enterotoxigenic E.coli It/st Not Detected (Not Detect); Giardia lamblia Not Detected (Not Detect); Norovirus GI/GII Not Detected (Not Detect); Plesiomonsa shigelloides Not Detected (Not Detect); Rotavirus A Not Detected (Not Detect); Salmonella Not Detected (Not Detect); Sapovirus Not Detected (Not Detect); Shiga-like toxin-prod E.coli Not Detected (Not Detect); Shigella/Enteroinvasive E.coli Not Detected (Not Detect); Vibrio Not Detected (Not Detect); Vibrio cholerae Not Detected (Not Detect); Yersinia enterocolitica Not Detected (Not Detect)
[2023-03-18 01:53] VITALS: PULSE 79; RESP 47; O2SAT 93
== END 2023-03-18 02:02 | disposition home or self-care (01) ==
PROVIDERS: Emergency Provider Emergency Medicine; Family Provider Internal Medicine; PCP Internal Medicine
DX: R11.2 Nausea with vomiting, unspecified (principal); R06.00 Dyspnea, unspecified; Z20.822 Contact with and (suspected) exposure to COVID-19
CPT/HCPCS: 0241U; 36415; 71045; 80053; 83605; 83880; 84484; 85025; 85610; 87507; 96361; 96374; 99284; J2405

== ENCOUNTER → 2023-04-09 13:38 | Outpatient (CLI) | payer MEDICARE, SELFPAY ==
[2023-03-20 11:51] VITALS: BMI 25.0
[2023-04-09 14:33] LABS: BUN Creatinine Ratio 23.6 (6-22); Blood Urea Nitrogen 26 mg/dL (7-17); Calcium 9.8 mg/dL (8.4-10.2); Carbon Dioxide 25 mmol/L (22-32); Chloride 105 mmol/L (98-107); Estimated Glomerular Filt Rate 52 mL/min (>60); Glucose 91 mg/dL (80-110); HEMOLYSIS < 15 (0-50); Potassium 4.4 mmol/L (3.4-5.1); Sodium 139 mmol/L (137-145)
[2023-04-09 16:35] LABS: Vitamin D 25 Hydroxy (D3) 43.7 ng/mL (30.0-100.0)
== END ==
PROVIDERS: Family Provider Internal Medicine; PCP Internal Medicine; Referring Provider Internal Medicine Endocrinology, Diabetes & Metabolism; Visit Provider Internal Medicine Endocrinology, Diabetes & Metabolism
DX: M81.0 Age-related osteoporosis without current pathological fracture (principal)
CPT/HCPCS: 36415; 80048; 82306

== ENCOUNTER → 2023-05-09 10:52 | Outpatient (CLI) | payer MEDICARE, SELFPAY ==
[2023-03-20 11:51] VITALS: BMI 25.0
[2023-05-09 11:51] LABS: Alanine Aminotransferase 31 IU/L (<35); Albumin 4.2 g/dL (3.5-5.0); Albumin Globulin Ratio 1.8 (1.0-2.8); Alkaline Phosphatase 50 U/L (38-126); Aspartate Aminotransferase 34 IU/L (14-36); BUN Creatinine Ratio 24.5 (6-22); Bilirubin Total 1.7 mg/dL (0.2-1.3); Blood Urea Nitrogen 26 mg/dL (7-17); Calcium 9.7 mg/dL (8.4-10.2); Carbon Dioxide 29 mmol/L (22-32); Chloride 107 mmol/L (98-107); Estimated Glomerular Filt Rate 54 mL/min (>60); Globulin 2.4 g/dL (1.7-4.1); Glucose 81 mg/dL (80-110); HEMOLYSIS < 15 (0-50); Potassium 4.7 mmol/L (3.4-5.1); Sodium 139 mmol/L (137-145); Total Protein 6.6 g/dL (6.3-8.2)
[2023-05-09 22:58] LABS: Hep C Virus Ab w/Reflex Quant NEGATIVE s/c (NEGATIVE)
== END ==
PROVIDERS: Family Provider Internal Medicine; PCP Internal Medicine; Referring Provider Internal Medicine; Visit Provider Internal Medicine
DX: N18.31 Chronic kidney disease, stage 3a (principal); R79.89 Other specified abnormal findings of blood chemistry; Z20.9 Contact with and (suspected) exposure to unspecified communicable disease
CPT/HCPCS: 36415; 80053; 86803

== ENCOUNTER → 2023-07-17 11:03 | Outpatient (CLI) | payer MEDICARE, SELFPAY ==
[2023-03-20 11:51] VITALS: BMI 25.0
[2023-07-17 12:24] LABS: Add Manual Diff / Slide Review NO; Basophils Absolute Auto 0 /uL (0-100); Basophils Percent Auto 0.7 % (0-2); Eosinophils Absolute Auto 200 /uL (0-450); Eosinophils Percent Auto 2.4 % (2-4); Hematocrit 38.7 % (36-46); Hemoglobin 12.9 g/dL (12.0-16.0); Lymphocytes Absolute Auto 1100 /uL (1100-4500); Mean Corpuscular HGB Conc 33.3 % (30-36); Mean Corpuscular Hemoglobin 29.3 PG (26-34); Monocytes Absolute Auto 400 /uL (0-900); Monocytes Percent Auto 6.9 % (3-14); Neutrophils Absolute Auto 4600 /uL (1500-7000); Platelet Count 237 X10^3/uL (150-400); White Blood Cell Count 6.2 X10^3/uL (4.5-11.0)
[2023-07-17 12:48] LABS: Blood Urea Nitrogen 29 mg/dL (7-17); Calcium 9.3 mg/dL (8.4-10.2); Carbon Dioxide 27 mmol/L (22-32); Chloride 109 mmol/L (98-107); Estimated Glomerular Filt Rate 46 mL/min (>60); Glucose 74 mg/dL (80-110); HEMOLYSIS < 15 (0-50); Potassium 5.1 mmol/L (3.4-5.1); Sodium 141 mmol/L (137-145)
[2023-07-17 12:51] LABS: NT-proBNP (BNP-Adult 18+) 250 pg/mL (<450)
== END ==
LOC: LAB 11:04
PROVIDERS: Family Provider Internal Medicine; PCP Internal Medicine; Referring Provider Internal Medicine Cardiovascular Disease; Visit Provider Internal Medicine Cardiovascular Disease
DX: R06.02 Shortness of breath (principal)
CPT/HCPCS: 36415; 80048; 83880; 85025

== ENCOUNTER → 2023-08-08 11:50 | Outpatient (CLI) | payer MEDICARE, SELFPAY ==
[2023-03-20 11:51] VITALS: BMI 25.0
--- NOTE | 2023-08-08 | DI.MG.S_ITS ---
BILATERAL DIGITAL SCREENING MAMMOGRAM 3D/2D WITH CAD: 08/08/2023 CLINICAL: Routine screening. Comparison is made to exams dated: 08/06/2022 mammogram, 08/03/2021 mammogram, 07/18/2020 mammogram, 07/11/2019 mammogram, and 05/05/2018 mammogram - [facility]. There are scattered areas of fibroglandular density in both breasts (category b / 25%-50% glandular tissue). Current study was also evaluated with a Computer Aided Detection (CAD) system. No significant masses, calcifications, or other findings are seen in either breast. There has been no significant interval change. IMPRESSION: NEGATIVE There is no mammographic evidence of malignancy. A 1 year screening mammogram is recommended. Based on the Tyrer Cuzick model (a risk assessment model) the patient's lifetime risk is 2.7% and her 10 year risk is 0.0%. According to the ACR, ACS, and NCCN guidelines, an annual breast MRI exam along with mammogram is recommended if the patient's lifetime risk is 20% or greater. This exam was interpreted at Station ID: [id number]. NOTE: For mammograms, a report in lay terms will be sent to the patient. Approximately 15% of breast malignancies will not be visualized mammographically. In the management of a palpable breast mass, a negative mammogram must not discourage biopsy of a clinically suspicious lesion. Electronically Signed By: Kang camacho/gege:08/08/2023 16:34:41 letter sent: Normal Exam ACR BI-RADS Category 1: Negative [id number]
== END ==
PROVIDERS: Family Provider Internal Medicine; PCP Internal Medicine; Referring Provider Internal Medicine; Visit Provider Internal Medicine
DX: Z12.31 Encounter for screening mammogram for malignant neoplasm of breast (principal); R92.323 Mammographic fibroglandular density, bilateral breasts
CPT/HCPCS: 77063; 77067

== ENCOUNTER → 2023-08-22 09:46 | Outpatient (CLI) | payer MEDICARE, SELFPAY ==
[2023-03-20 11:51] VITALS: BMI 25.0
[2023-08-22 11:21] LABS: BUN Creatinine Ratio 23.6 (6-22); Blood Urea Nitrogen 26 mg/dL (7-17); Calcium 9.3 mg/dL (8.4-10.2); Carbon Dioxide 28 mmol/L (22-32); Chloride 106 mmol/L (98-107); Estimated Glomerular Filt Rate 52 mL/min (>60); Glucose 89 mg/dL (80-110); HEMOLYSIS 20 (0-50); Potassium 4.9 mmol/L (3.4-5.1); Sodium 139 mmol/L (137-145)
== END ==
LOC: LAB 09:48
PROVIDERS: Family Provider Internal Medicine; PCP Internal Medicine; Referring Provider Internal Medicine Cardiovascular Disease; Visit Provider Internal Medicine Cardiovascular Disease
DX: I13.10 Hypertensive heart and chronic kidney disease without heart failure, with stage 1 through stage 4 chronic kidney disease, or unspecified chronic kidney disease (principal)
CPT/HCPCS: 36415; 80048

== ENCOUNTER → 2023-10-07 14:22 | Outpatient (CLI) | payer MEDICARE, SELFPAY ==
[2023-03-20 11:51] VITALS: BMI 25.0
[2023-10-07 15:52] LABS: BUN Creatinine Ratio 23.2 (6-22); Blood Urea Nitrogen 26 mg/dL (7-17); Calcium 9.7 mg/dL (8.4-10.2); Carbon Dioxide 26 mmol/L (22-32); Chloride 104 mmol/L (98-107); Estimated Glomerular Filt Rate 51 mL/min (>60); Glucose 85 mg/dL (80-110); HEMOLYSIS < 15 (0-50); Potassium 4.7 mmol/L (3.4-5.1); Sodium 137 mmol/L (137-145)
[2023-10-07 16:23] LABS: Vitamin D 25 Hydroxy (D3) 45.7 ng/mL (30.0-100.0)
== END ==
LOC: LAB 14:23
PROVIDERS: Family Provider Internal Medicine; PCP Internal Medicine; Referring Provider Internal Medicine Endocrinology, Diabetes & Metabolism; Visit Provider Internal Medicine Endocrinology, Diabetes & Metabolism
DX: M81.0 Age-related osteoporosis without current pathological fracture (principal)
CPT/HCPCS: 36415; 80048; 82306

== ENCOUNTER 2023-12-09 08:09 | Day surgery (SDC) | payer MEDICARE, SELFPAY ==
[2023-03-20 11:51] VITALS: BMI 25.0
[2023-12-05 07:15] VITALS: BMI 28.1
[2023-12-09] VITALS (8 sets, daily range): BP systolic 105–143; BP diastolic 54–73; PULSE 69–87; RESP 12–20; TEMP 36.1–36.4; O2SAT 94–99; BMI 27.4
[2023-12-09] MEDS: LACTATED RINGERS 1,000 ML 21 ML IV (09:09)
--- NOTE | 2023-12-09 09:30 | PM.PREOP ---
Pre-operative Note Interval Note History & Physical reviewed/Exam performed by Physician: Yes Changes to H&P: No
[2023-12-09] MEDS: CEFAZOLIN 2 GM/100 ML PREMIX 100 ML IV (10:32)
[2023-12-09] MEDS: BUPIVACAINE 0.5% (PF) 30 ML, EPINEPHrine 0.15 MG INJ (10:42)
--- NOTE | 2023-12-09 11:00 | SUR.OPER ---
Lithotomy on padded OR bed, head on pillow, blanket roll behind neck, upper back, arms secured on padded arm boards at <90 degrees abduction. Legs secured in padded yellow fins stirrups.
--- NOTE | 2023-12-09 11:52 | PM.OP.1 ---
Operative Date/Time/Diagnoses Date of procedure: 12/09/23 Time of procedure: 11:52 Pre-op diagnosis: Partial uterovaginal prolapse with gaping introitus Post-op diagnosis: same Procedure & Clinicians Procedure: LeFort colpocleisis with perineoplasty Same procedure as scheduled: Yes Indications: Partial uterovaginal prolapse Surgeon: Leann Banuelos Click Yes if Unassisted: Yes Anesthesia Type: General Operative Notes Findings: Third-degree cystocele with second-degree rectocele and minimal uterine prolapse Closure Type: primary Specimen(s): none sent Estimated Blood Loss (mL): 20 Blood products transfused: none Procedure in detail: The patient was brought to the operating room where she was in a supine position in [facility] and underwent a general anesthetic. She was prepped and draped in the usual sterile fashion. Her bladder was drained. 2 g of Ancef were in prior to beginning of the case. Warming was in place with Marissa Hugger. Pulsatile stockings were in place and function. Area on anterior and posterior wall of the prolapse were injected with a dilute solution of half percent Marcaine with epinephrine. The skin was incised with a scalpel and undermined with and removed removed with Metzenbaum scissors. 0 Vicryl suture interrupted was placed from the anterior cervical fascia to the posterior cervical fascia to invert the cervix. 2-0 Vicryl suture was used in an interrupted fashion to close anterior to posterior on the sides creating a tunnel from the cervix to the external area The vaginal incision was closed from anterior to posterior fully inverting the uterus. The area of the posterior vaginal opening was injected with the dilute solution of Marcaine with epi. A wedge-shaped tissue was taken out of the area. The perineal body was built up with interrupted 2-0 Vicryl suture. The vaginal incision and skin was closed with 2 0 Vicryl suture. Counts of instruments and sponges were correct. Patient went to recovery room in good condition. Complications: none Post-operative Condition: stable Disposition: same day surgery Plan for aftercare: Home when awake and stable.
== END 2023-12-09 12:59 | disposition home or self-care (01) ==
PROVIDERS: Family Provider Internal Medicine; PCP Internal Medicine; Referring Provider Specialist; Visit Provider Specialist
PROC: (CPT 57120; principal; 2023-12-09 09:45)
DX: N81.2 Incomplete uterovaginal prolapse (principal); N39.41 Urge incontinence
CPT/HCPCS: 57120; J0171; J0690; J2405; J2704; J3010; J3490

== ENCOUNTER → 2023-12-12 13:29 | Outpatient (CLI) | payer MEDICARE, SELFPAY ==
[2023-03-20 11:51] VITALS: BMI 25.0
[2023-12-12 14:00] LABS: Blood Urea Nitrogen 27 mg/dL (7-17); Calcium 10.1 mg/dL (8.4-10.2); Carbon Dioxide 31 mmol/L (22-32); Chloride 105 mmol/L (98-107); Cholesterol 136 mg/dL (140-199); Estimated Glomerular Filt Rate 46 mL/min (>60); Glucose 89 mg/dL (80-110); HDL Cholesterol 53 mg/dL (40-60); HEMOLYSIS < 15 (0-50); LDL Cholesterol Calculated 50 mg/dL (<100); Potassium 4.5 mmol/L (3.4-5.1); Sodium 140 mmol/L (137-145); Triglycerides 166 mg/dL (35-150)
[2023-12-12 14:30] LABS: TSH w/ Reflex to FT4 1.42 uIU/mL (0.47-4.68)
== END ==
PROVIDERS: Family Provider Internal Medicine; PCP Internal Medicine; Referring Provider Internal Medicine; Visit Provider Internal Medicine
DX: E78.2 Mixed hyperlipidemia (principal); N18.31 Chronic kidney disease, stage 3a; E03.9 Hypothyroidism, unspecified; I25.10 Atherosclerotic heart disease of native coronary artery without angina pectoris; I50.22 Chronic systolic (congestive) heart failure; I44.7 Left bundle-branch block, unspecified; I13.0 Hypertensive heart and chronic kidney disease with heart failure and stage 1 through stage 4 chronic kidney disease, or unspecified chronic kidney disease; K21.9 Gastro-esophageal reflux disease without esophagitis; K22.70 Barrett's esophagus without dysplasia; G62.9 Polyneuropathy, unspecified; G25.81 Restless legs syndrome; K52.839 Microscopic colitis, unspecified
CPT/HCPCS: 36415; 80048; 80061; 84443

== ENCOUNTER → 2023-12-19 08:19 | Outpatient (CLI) | payer MEDICARE, SELFPAY ==
[2023-03-20 11:51] VITALS: BMI 25.0
--- NOTE | 2023-12-19 08:20 | DI.US.S_ITS ---
PROCEDURE: US RENAL COMPLETE INDICATIONS: CKD, hx renal cell cancer TECHNIQUE: Real-time scanning was performed of the kidneys and bladder, with image documentation. COMPARISON: None. FINDINGS: Kidneys: Kidneys are normal in size. Right kidney measures 10.0 cm long. Right renal cortical thickness is 1.1 cm. Left kidney is surgically absent. No abnormality is seen in left renal fossa. Renal cortical echotexture is normal. No hydronephrosis or nephrolithiasis. No suspicious solid mass lesions. Bladder: Urinary bladder is decompressed. No obvious bladder wall abnormality is seen. On pre-void images, no ureteral jets are noted with color Doppler interrogation. (Of note, ureteral jets may not be detectable in up to 25% of cases due to insufficient differences in specific gravity between ureteral and bladder urine). Miscellaneous: No free pelvic fluid. IMPRESSION: 1. Prior left nephrectomy. No abnormality is seen in left renal fossa. 2. Normal appearing right kidney. 3. No gross abnormality is seen in decompressed urinary bladder. Dictated by: Diego Torres M.D. on 12/19/2023 at 11:56 Approved by: Diego Torres M.D. on 12/19/2023 at 11:57
== END ==
LOC: US 08:19
PROVIDERS: Family Provider Internal Medicine; PCP Internal Medicine; Referring Provider Internal Medicine; Visit Provider Internal Medicine
DX: N18.31 Chronic kidney disease, stage 3a (principal); Z85.528 Personal history of other malignant neoplasm of kidney; Z90.5 Acquired absence of kidney
CPT/HCPCS: 76770

== ENCOUNTER → 2023-12-27 10:06 | Outpatient (CLI) | payer MEDICARE, SELFPAY ==
[2023-03-20 11:51] VITALS: BMI 25.0
[2023-12-27 11:19] LABS: Appearance Urine UA CLOUDY; Bilirubin Urine UA 1+ (NEGATIVE); Color Urine UA BROWN; Glucose Urine UA TRACE g/dL (Negative); Ketones Urine UA NEGATIVE (NEGATIVE); Leukocyte Esterase Urine UA TRACE (NEGATIVE); Nitrite Urine UA POSITIVE (Negative); Occult Blood Urine UA 3+ (Negative); Protein Urine UA 3+ (Negative); Specific Gravity Urine UA 1.025 (1.000-1.035)
[2023-12-27 11:20] LABS: pH Urine UA 6.5 (4.5-8.0)
[2023-12-27 11:23] LABS: Ictotest Urine Negative (Negative)
[2023-12-27 11:35] LABS: Bacteria Urine Few (2-10); Culture Indicated Urine Specimen Cultured; RBC Urine >100/HPF (0-5/HPF); Squamous Epithelial Cell Urine None Seen (0-5/HPF); Urine Volume 10mL (spun); WBC Urine 30-100/HPF (0-5/HPF)
[2023-12-27 14:25] LABS: Add Manual Diff / Slide Review NO; Basophils Absolute Auto 100 /uL (0-100); Basophils Percent Auto 0.6 % (0-2); Eosinophils Absolute Auto 200 /uL (0-450); Hematocrit 38.2 % (36-46); Hemoglobin 12.6 g/dL (12.0-16.0); Lymphocytes Absolute Auto 1000 /uL (1100-4500); Lymphocytes Percent Auto 6.6 % (25-40); Mean Corpuscular HGB Conc 33.1 % (30-36); Mean Corpuscular Hemoglobin 28.7 PG (26-34); Mean Corpuscular Volume 86.5 fL (80-100); Monocytes Absolute Auto 900 /uL (0-900); Monocytes Percent Auto 5.7 % (3-14); Neutrophils Absolute Auto 12800 /uL (1500-7000); Neutrophils Percent Auto 86.1 % (50-75); Platelet Count 235 X10^3/uL (150-400); Red Blood Cell Count 4.41 X10^6/uL (4.0-5.2); Red Cell Distribution Width 14.1 % (11.6-14.8); White Blood Cell Count 14.9 X10^3/uL (4.5-11.0)
== END ==
LOC: LAB 10:07
PROVIDERS: Family Provider Internal Medicine; PCP Internal Medicine; Referring Provider Obstetrics & Gynecology; Visit Provider Obstetrics & Gynecology
DX: R39.15 Urgency of urination (principal); R30.0 Dysuria; N99.89 Other postprocedural complications and disorders of genitourinary system; R50.82 Postprocedural fever; N99.820 Postprocedural hemorrhage of a genitourinary system organ or structure following a genitourinary system procedure
CPT/HCPCS: 36415; 81001; 85025; 87077; 87086; 87186

== ENCOUNTER → 2024-01-15 09:30 | Outpatient (CLI) | payer MEDICARE, SELFPAY ==
[2023-03-20 11:51] VITALS: BMI 25.0
[2024-01-15 10:35] LABS: Appearance Urine UA CLOUDY; Bilirubin Urine UA 1+ (NEGATIVE); Color Urine UA RED; Glucose Urine UA NEGATIVE (Negative); Ketones Urine UA TRACE (NEGATIVE); Leukocyte Esterase Urine UA TRACE (NEGATIVE); Nitrite Urine UA POSITIVE (Negative); Occult Blood Urine UA 3+ (Negative); Protein Urine UA 3+ (Negative); Urobilinogen Urine UA 0.2 E.U./dL (0.2)
[2024-01-15 10:37] LABS: Ictotest Urine Negative (Negative); RBC Urine >100/HPF (0-5/HPF); Urine Volume 10mL (spun); WBC Urine 10-30/HPF (0-5/HPF)
[2024-01-15 10:38] LABS: Bacteria Urine Many (>30); Culture Indicated Urine Specimen Cultured; Squamous Epithelial Cell Urine None Seen (0-5/HPF)
== END ==
PROVIDERS: Family Provider Internal Medicine; PCP Internal Medicine; Referring Provider Obstetrics & Gynecology; Visit Provider Obstetrics & Gynecology
DX: R30.0 Dysuria (principal)
CPT/HCPCS: 81001; 87077; 87086; 87186

== ENCOUNTER → 2024-01-29 13:19 | Outpatient (CLI) | payer MEDICARE, SELFPAY ==
[2023-03-20 11:51] VITALS: BMI 25.0
[2024-01-29 14:51] LABS: Appearance Urine UA SL CLOUDY; Bilirubin Urine UA NEGATIVE (NEGATIVE); Color Urine UA YELLOW; Glucose Urine UA NEGATIVE (Negative); Ketones Urine UA NEGATIVE (NEGATIVE); Leukocyte Esterase Urine UA 3+ (NEGATIVE); Nitrite Urine UA NEGATIVE (Negative); Occult Blood Urine UA 2+ (Negative); Protein Urine UA NEGATIVE (Negative); Specific Gravity Urine UA <=1.005 (1.000-1.035); Urobilinogen Urine UA 0.2 E.U./dL (0.2); pH Urine UA 5.5 (4.5-8.0)
[2024-01-29 15:08] LABS: Bacteria Urine Occasional (0-1); Culture Indicated Urine Specimen Cultured; RBC Urine 1-5/HPF (0-5/HPF); Squamous Epithelial Cell Urine None Seen (0-5/HPF); Urine Volume 10mL (spun); WBC Urine 5-10/HPF (0-5/HPF)
== END ==
PROVIDERS: Family Provider Internal Medicine; PCP Internal Medicine; Referring Provider Obstetrics & Gynecology; Visit Provider Obstetrics & Gynecology
DX: R30.0 Dysuria (principal); R82.90 Unspecified abnormal findings in urine
CPT/HCPCS: 81001; 87086

== ENCOUNTER → 2024-03-30 15:13 | Outpatient (CLI) | payer MEDICARE, SELFPAY ==
[2023-03-20 11:51] VITALS: BMI 25.0
[2024-03-30 16:34] LABS: Alanine Aminotransferase 29 IU/L (<35); Albumin 4.3 g/dL (3.5-5.0); Albumin Globulin Ratio 2.2 (1.0-2.8); Alkaline Phosphatase 41 U/L (38-126); Aspartate Aminotransferase 30 IU/L (14-36); BUN Creatinine Ratio 25.2 (6-22); Bilirubin Total 0.9 mg/dL (0.2-1.3); Blood Urea Nitrogen 32 mg/dL (7-17); Calcium 10.3 mg/dL (8.4-10.2); Carbon Dioxide 30 mmol/L (22-32); Chloride 105 mmol/L (98-107); Estimated Glomerular Filt Rate 44 mL/min (>60); Glucose 101 mg/dL (80-110); HEMOLYSIS < 15 (0-50); Potassium 4.7 mmol/L (3.4-5.1); Sodium 138 mmol/L (137-145); Total Protein 6.3 g/dL (6.3-8.2)
[2024-03-30 16:45] LABS: Vitamin D 25 Hydroxy (D3) 50.1 ng/mL (30.0-100.0)
== END ==
PROVIDERS: Internal Medicine Endocrinology, Diabetes & Metabolism; Family Provider Internal Medicine; PCP Internal Medicine; Referring Provider Nurse Practitioner; Visit Provider Nurse Practitioner
DX: M81.0 Age-related osteoporosis without current pathological fracture (principal); I13.10 Hypertensive heart and chronic kidney disease without heart failure, with stage 1 through stage 4 chronic kidney disease, or unspecified chronic kidney disease
CPT/HCPCS: 36415; 80053; 82306

== ENCOUNTER 2024-05-09 10:09 | Emergency (ER) | payer MEDICARE, SELFPAY ==
[2023-03-20 11:51] VITALS: BMI 25.0
[2024-05-09] VITALS (12 sets, daily range): BP systolic 110–137; BP diastolic 51–67; PULSE 61–77; RESP 12–24; TEMP 36.9; O2SAT 69–97; BMI 26.6
--- NOTE | 2024-05-09 10:32 | DI.RAD.S_ITS ---
PROCEDURE: XR CHEST 1V INDICATIONS: Shortness of breath TECHNIQUE: One view of the chest was acquired. COMPARISON: [facility], CR, XR CHEST 1V, 08/29/2022, 15:31. [facility], CR, XR CHEST 1V, 03/17/2023, 23:30. FINDINGS: Surgical changes and devices: None. Lungs and pleura: Lungs are clear. No pleural effusions or pneumothorax. Mediastinum: The cardiac contours are within normal limits. The aorta demonstrates calcification and tortuosity. Bones and chest wall: No suspicious bony lesions. Mild dextroconvex scoliotic curvature is seen. Age-appropriate bony degenerative changes are seen. Overlying soft tissues appear unremarkable. IMPRESSION: Unremarkable portable chest for age, similar to the prior. Dictated by: Jens Pichardo M.D. on 05/09/2024 at 9:51 Approved by: Jens Pichardo M.D. on 05/09/2024 at 9:52
[2024-05-09 10:51] LABS: Add Manual Diff / Slide Review NO; Basophils Absolute Auto 0 /uL (0-100); Basophils Percent Auto 0.5 % (0-2); Eosinophils Absolute Auto 0 /uL (0-450); Eosinophils Percent Auto 0.5 % (2-4); Hematocrit 40.2 % (36-46); Hemoglobin 13.4 g/dL (12.0-16.0); Lymphocytes Absolute Auto 1100 /uL (1100-4500); Lymphocytes Percent Auto 13.7 % (25-40); Mean Corpuscular HGB Conc 33.2 % (30-36); Mean Corpuscular Hemoglobin 28.8 PG (26-34); Mean Corpuscular Volume 86.7 fL (80-100); Monocytes Absolute Auto 700 /uL (0-900); Monocytes Percent Auto 8.2 % (3-14); Neutrophils Absolute Auto 6400 /uL (1500-7000); Neutrophils Percent Auto 77.1 % (50-75); Platelet Count 176 X10^3/uL (150-400); Red Blood Cell Count 4.64 X10^6/uL (4.0-5.2); Red Cell Distribution Width 13.6 % (11.6-14.8); White Blood Cell Count 8.2 X10^3/uL (4.5-11.0)
--- NOTE | 2024-05-09 10:52 | EKG_ITS ---
[place] [id number] [address] [place] [id number] Test Date: 2024-05-09 Pat Name: Chantelle Hinojosa Department: [facility] Room: Gender: Female Field Rep: OWEN : 1945 Requested By: Order Number: [id number] Reading MD: Terrance Banks MD Measurements Intervals [place] Rate: 61 P: 52 MS: 194 QRS: -2 QRSD: 148 T: 114 QT: 474 QTc: 477 Interpretive Statements Sinus rhythm with marked sinus arrhythmia Left bundle branch block NO SIGNIFICANT CHANGE FROM PRIOR TRACING Electronically Signed On 05-10-2024 8:51:09 PDT by Terrance Banks MD
[2024-05-09 10:56] LABS: Prothrombin Time 11.4 SECONDS (9.4-12.5)
[2024-05-09 10:59] LABS: Lactate (Lactic Acid) 0.9 mmol/L (0.7-2.1)
[2024-05-09 11:00] LABS: Alanine Aminotransferase 116 IU/L (<35); Albumin 4.4 g/dL (3.5-5.0); Albumin Globulin Ratio 1.6 (1.0-2.8); Alkaline Phosphatase 97 U/L (38-126); Aspartate Aminotransferase 62 IU/L (14-36); BUN Creatinine Ratio 19.6 (6-22); Bilirubin Total 1.4 mg/dL (0.2-1.3); Blood Urea Nitrogen 19 mg/dL (7-17); Calcium 8.8 mg/dL (8.4-10.2); Carbon Dioxide 22 mmol/L (22-32); Chloride 103 mmol/L (98-107); Estimated Glomerular Filt Rate > 60 mL/min (>60); Globulin 2.8 g/dL (1.7-4.1); Glucose 108 mg/dL (80-110); HEMOLYSIS < 15 (0-50); Sodium 134 mmol/L (137-145); Total Protein 7.2 g/dL (6.3-8.2)
[2024-05-09] MEDS: ALBUTEROL/IPRATROPIUM 3 ML AMPUL INH (11:06)
[2024-05-09 11:12] LABS: NT-proBNP (BNP-Adult 18+) 450 pg/mL (<450); Troponin I < 0.012 ng/mL (0.01-0.034)
--- NOTE | 2024-05-09 11:14 | RT ---
pt jose carlos dixon well, on room air. at bedside and no distress noted.
--- NOTE | 2024-05-09 12:14 | ED_ITS ---
HPI - SOB/Dyspnea General Chief Complaint: Shortness of Breath/Dyspnea Stated Complaint: Respiratory Distress/Cough/Congestion/SOB Time Seen by Provider: 05/09/24 10:48 Source: patient, RN notes reviewed and old records reviewed Mode of arrival: Wheelchair Limitations: no limitations History of Present Illness HPI Narrative: 79-year-old female hypertension, dyslipidemia, hypothyroidism, left bundle- branch block, CKD3A with prior nephrectomy, reactive airway presents with complaint of cough since last Saturday with brown sputum and feeling short of breath. 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 She was noticed tightness in her chest particularly trying to breathe out is difficult. She was feels like she can bring the RN but can not breathe at out. Denies any chest pain. Denies any headaches. No sore throat. She was had nasal congestion been using Lenny and Afrin. She had nausea vomiting and diarrhea Saturday and but that is improved she was not having that any longer. She has not had any urinary symptoms. No new swelling of her extremities. She notes she does have an albuterol inhaler that she uses a couple times a week typically for exertion mid started using that in the last year. She states she does take medication for hypertension, dyslipidemia and hypothyroidism. She takes Excedrin daily but no other anticoagulants. She was had a nephrectomy for renal cell carcinoma she was never had any cardiac interventions or stents. Reports allergies to codeine, penicillin and erythromycin. Smoked at age 21 but has not smoked since. No alcohol, no recreational drugs. Dr. Fitzgerald is her primary care physician. Related Data Home Medications Medication Instructions Recorded Confirmed calcium 315 mg (as 1 tab PO DAILY ##0 10/09/16 01/22/24 citrate)-vitamin D3 6.25 mcg (250 unit) tablet (Citracal + Vitamin D Maximum) ferrous sulfate 142 mg (45 mg 142 mg PO BID 09/23/18 01/22/24 iron) tablet,extended release (Slow Fe) diclofenac sodium 1 % topical gel 2 g topical TID PRN Pain, Mild 03/15/20 01/22/24 (Voltaren) magnesium oxide 500 mg capsule 500 mg PO DAILY 03/15/20 01/22/24 methylcellulose (with sugar) oral 1 tbsp PO DAILY 03/15/20 01/22/24 powder (Citrucel (sucrose) oral powder) atorvastatin 20 mg tablet 20 mg PO DAILY 09/15/20 01/22/24 metoprolol succinate 25 mg 12.5 mg PO QPM 09/16/20 01/22/24 tablet,extended release 24 hr omega-3 fatty acids-fish oil 360 1 cap PO DAILY 05/07/22 01/22/24 mg-1,200 mg capsule (Fish Oil) denosumab 60 mg/mL subcutaneous 60 mg SUBCUT [id number] 11/08/22 01/22/24 syringe (Prolia) acidophilus 100 million 1 cap PO DAILY Canker sores 03/21/23 01/22/24 cell-pectin, citrus 10 mg capsule cholecalciferol (vitamin D3) 25 25 mcg PO DAILY Balance off less 03/21/23 01/22/24 mcg (1,000 unit) capsule (Vitamin calcium D3) omeprazole 20 mg capsule,delayed 20 mg PO DAILY 05/09/23 01/22/24 release [id number] 250 2 tab PO QAM 12/05/23 01/22/24 mg-250 mg-65 mg tablet (Excedrin Migraine) losartan 25 mg tablet 12.5 mg PO DAILY 12/05/23 01/22/24 Previous Rx's Medication Instructions Recorded melatonin 3 mg tablet 3 mg PO BEDTIME PRN sleep #90 tabs 08/20/17 CMP Estradiol Vaginal Cream 0.0125% 1 g vaginal .COMPLEX #30 grams 08/28/23 albuterol sulfate 90 mcg/actuation 2 puff inhalation Q4H PRN 10/03/23 aerosol inhaler shortness of breath or wheezing #8.5 grams levothyroxine 25 mcg tablet 25 mcg PO DAILY #90 tabs 12/04/23 oxycodone 5 mg tablet 5 mg PO Q6H PRN pain #8 tabs 12/09/23 amoxicillin 500 mg-potassium 1 tab PO BID #14 tabs 12/27/23 clavulanate 125 mg tablet fluconazole 150 mg tablet 150 mg PO ONCE #1 tab 12/27/23 estradiol 0.01% (0.1 mg/gram) 0.5 g vaginal QWEEK #42.5 grams 01/22/24 vaginal cream azithromycin 250 mg tablet See Rx Instructions PO .COMPLEX #6 05/09/24 tabs prednisone 10 mg tablets in a dose See Rx Instructions PO .COMPLEX 05/09/24 pack #21 ea Allergies Allergy/AdvReac Type Severity Reaction Status Date / Time codeine Allergy Unknown NAUSEA Verified 05/09/24 10:29 erythromycin base Allergy Unknown NAUSEA Verified 05/09/24 10:29 NSAIDS (Non-Steroidal Allergy Unknown Nephrectomy Verified 05/09/24 10:29 Anti-Inflamma Penicillins Allergy Unknown YEAST Verified 05/09/24 10:29 INFECTION lansoprazole AdvReac Severe worsened Verified 05/09/24 10:29 kidney function Review of Systems Review of Systems ROS Unobtainable: All systems reviewed & are unremarkable except as noted in HPI and below Patient History Medical History Ejection fraction < 50% (09/26/23) Stage 3a chronic kidney disease (CKD) Panic attacks Primary osteoarthritis involving multiple joints Age-related osteoporosis without current pathological fracture Knee pain, bilateral Synovial cyst of popliteal space [[place]], right knee Acquired hypothyroidism Microscopic colitis Restless legs syndrome GERD without esophagitis Essential hypertension Systolic CHF, chronic Coronary artery disease Postmenopausal atrophic vaginitis Left bundle branch block (2019) Diverticulosis (2019) Kelly's esophagus determined by endoscopy (2019) Microscopic hematuria History of renal cell carcinoma Thyroid disease Inflammatory bowel disease GERD (gastroesophageal reflux disease) Arthritis Vision disorder Osteoarthritis (~2009) Pneumonia Leg cramps (~2009) Scoliosis (~1983) Fractures Foot pain Plantar warts (~1960) Mumps (~1970) Measles (~1965) Chicken pox (~1957) Anemia (~2001) Cataracts, bilateral (~2015) Painful menstrual periods (~1958) Heavy menstrual period (~1958) Gallstones (~1983) History of kidney cancer (~2014) Surgical History History of colpocleisis History of nephrectomy, left (12/2014) History of arthroscopic knee surgery History of bursectomy Anesthesia History of eye surgery (~2014) History of fusion of cervical spine (~1993) Macular pucker (~2015) History of nephrectomy (12/27/14) History of knee replacement (~2012) Status post cholecystectomy (~1983) Status post tubal ligation (~1983) Status post adenoidectomy (~1958) History of third molar tooth extraction (~1965) Family History Father Heart disease Hypertension Grandmother Cancer Mother Cancer Migraines Inflammatory bowel disease Grandmother No problems noted. Social History details: (Les) household members: spouse Smoking Status: Former smoker alcohol intake: current Smoking Status: Former smoker alcohol intake frequency: holidays/special occasions only Exam Narrative Exam Narrative: GENERAL: Alert and oriented x three, female in mild distress HEENT: Head normocephalic, atraumatic, EOMI, pupils reactive, nasal congestion face symmetric, moist mucous membranes NECK: Supple, full range of motion CARDIOVASCULAR: Regular rate and rhythm without murmurs, rubs or gallops. RESPIRATORY: Breath sounds equal bilaterally, rales or rhonchi, patient has expiratory wheeze bilaterally in upper and lower lobes. No tachypnea or accessory muscle use. Intermittent cough. ABDOMEN: Soft, nontender. Normoactive bowel sounds all 4 quadrants. No guarding or rebound, rigidity, no mass : No CVA tenderness EXTREMITIES: Normal range of motion, no clubbing or edema. Neurovascularly intact NEUROLOGICAL: Cranial nerves II through XII grossly intact. Moving all extremities SKIN: Warm, dry, no petechiae, no rashes or lesions. Initial Vital Signs Initial Vital Signs: Vital Signs Temperature 98.5 F 05/09/24 10:29 Pulse Rate 69 05/09/24 10:29 Respiratory Rate 16 05/09/24 10:29 Blood Pressure 137/60 05/09/24 10:29 Pulse Oximetry 96 05/09/24 10:29 Oxygen Delivery Method Room Air 05/09/24 10:29 Course Orders Ordered: Discontinued Medications Albuterol (Albuterol 2.5 Mg/3 Ml Neb (Adult)) 2.5 mg INH NOW ONE Stop: 05/09/24 12:38 Last Admin: 05/09/24 12:43 Dose: 2.5 mg Documented By: JOE Albuterol/Ipratropium (Albuterol/Ipratropium 3 Ml Ampul) 3 ml INH NOW ONE Stop: 05/09/24 11:01 Last Admin: 05/09/24 11:06 Dose: 3 ml Documented By: OWEN Methylprednisolone (Methylprednisolone 125 Mg/2 Ml Vial) 125 mg IV NOW ONE Stop: 05/09/24 12:38 Last Admin: 05/09/24 12:43 Dose: 125 mg Documented By: JOE Vital Signs Vital signs: Vital Signs - 8 hr 05/09/24 10:29 05/09/24 10:35 05/09/24 10:36 Temperature 98.5 F Pulse Rate 69 65 65 Respiratory Rate 16 Blood Pressure 137/60 Pulse Oximetry 96 96 94 Oxygen Delivery Method Room Air 05/09/24 10:36 05/09/24 11:00 05/09/24 11:00 Temperature Pulse Rate 76 Respiratory Rate 18 Blood Pressure 114/62 111/67 Pulse Oximetry 93 Oxygen Delivery Method 05/09/24 11:07 05/09/24 12:53 Temperature Pulse Rate 68 67 Respiratory Rate 24 22 Blood Pressure Pulse Oximetry 96 69 L Oxygen Delivery Method Room Air Room Air MDM - SOB/Dyspnea Lab Data 05/09/24 10:42 05/09/24 10:42 Labs: Lab Results 05/09/24 Range/Units 10:42 WBC 8.2 (4.5-11.0) X10^3/uL RBC 4.64 (4.0-5.2) X10^6/uL Hgb 13.4 (12.0-16.0) g/dL Hct 40.2 (36-46) % MCV 86.7 (80-100) fL MCH 28.8 (26-34) PG MCHC 33.2 (30-36) % RDW 13.6 (11.6-14.8) % Plt Count 176 (150-400) X10^3/uL Neut % (Auto) 77.1 H (50-75) % Lymph % (Auto) 13.7 L (25-40) % [place] % (Auto) 8.2 (3-14) % Eos % (Auto) 0.5 L (2-4) % Baso % (Auto) 0.5 (0-2) % Neut # (Auto) 6400 (5103-5295) /uL Lymph # (Auto) 1100 (7280-7522) /uL [place] # (Auto) 700 (0-900) /uL Eos # (Auto) 0 (0-450) /uL Baso # (Auto) 0 (0-100) /uL PT 11.4 (9.4-12.5) SECONDS INR 1.0 (0.9-1.3) Sodium 134 L (137-145) mmol/L Potassium 4.0 (3.4-5.1) mmol/L Chloride 103 (98-107) mmol/L Carbon Dioxide 22 (22-32) mmol/L BUN 19 H (7-17) mg/dL Creatinine 0.97 (0.52-1.04) mg/dL Estimated GFR > 60 (>60) mL/min BUN/Creatinine Ratio 19.6 (6-22) Glucose 108 (80-110) mg/dL Lactate 0.9 (0.7-2.1) mmol/L Calcium 8.8 (8.4-10.2) mg/dL Total Bilirubin 1.4 H (0.2-1.3) mg/dL AST 62 H (14-36) IU/L ALT 116 H (<35) IU/L Alkaline Phosphatase 97 (38-126) U/L Troponin I < 0.012 (0.01-0.034) ng/mL NT-Pro-B Natriuret Pep 450 H (<450) pg/mL Total Protein 7.2 (6.3-8.2) g/dL Albumin 4.4 (3.5-5.0) g/dL Globulin 2.8 (1.7-4.1) g/dL Albumin/Globulin Ratio 1.6 (1.0-2.8) ECG Data Attestation: I personally reviewed and interpreted this ECG as follows: Interpretation: Sinus rhythm with marked sinus arrhythmia left bundle-branch block rate of 61 VA 194 QRS of 148 QTC of [address] elevation or depression. Patient has prior EKG from 07/05/2023 which shows left bundle-branch block and appears similar to today's that time rate was 63. MDM Narrative Medical decision making narrative: EKG shows sinus rhythm with sinus arrhythmia left bundle-branch block. Labs show normal CBC predominance of neutrophils. INR of 1 sodium 134 BUN 19 creatinine 0.97 electrolytes are otherwise appropriate glucose is 108 bilirubin is 1.4 with a AST of 62 ALT of 116 troponins less than 0.012 with a BNP of 450 alk-phos 97. Chest x-ray shows no acute change lungs are clear no pleural effusions or pneumothorax cardiac contours are within normal limits aorta demonstrates calcification and tortuosity. Mild dextroconvex scoliotic curvature seen age- appropriate bony degenerative changes seen overlying soft tissue. Unremarkable. 79-year-old female who has had some form of reactive airway for the past year does use an inhaler has been finding it helpful but not persistently helpful this week had what sounds like probably viral upper respiratory infection which has progressed and exacerbated her reactive airway she does note some dark brown/green sputum she was 72 rhonchi chest x-ray does not show acute change. She does have wheeze on exam did have some improvement with DuoNeb in his able to ambulate without any hypoxia or changes to her vital signs. Plan for steroids, continue albuterol PRN patient was given a spacer she did not have 1 and a we will give azithromycin for COPD/reactive airway exacerbation she may have some clinical pneumonia overlying. Patient received DuoNeb, albuterol, Solu-Medrol and spacer with training. Recheck at 1:30 p.m. patient's wheeze has resolved. Vital signs are appropriate. Patient has been able to ambulate in the department without issue. Discharge Plan Departure Patient Disposition: Home Clinical Impression: Exacerbation of reactive airway disease, Pneumonia Instructions: DI for Reactive Airway Disease-Adult Activity Restrictions/Additional Instructions: Follow up with primary care for recheck I suspect you had a viral illness that has caused exacerbation of your reactive airway or wheezing. May have a little bit of clinical pneumonia overlying suspect initiating event was probably a viral upper respiratory infection. Take steroids until completed. Take antibiotics until completed. Continue your home medications as prescribed. Use the spacer with a new inhaler you can use your inhaler every 4-6 hours as needed. Prescription sent to [facility] in [place]. Please return for new or worsening symptoms, fevers, new chest pain, increasing shortness of breath, lightheadedness or passing out, coughing up blood, new swelling of your extremities, vomiting or other new or concerning changes. Prescriptions: New prednisone 10 mg tablets,dose pack See Rx Instructions .ROUTE .COMPLEX Qty: 21 0RF Rx Instructions: orally per package directions azithromycin 250 mg tablet See Rx Instructions .ROUTE .COMPLEX Qty: 6 0RF Rx Instructions: For 250 mg dose pack: take 500 mg today (day 1), then 250 mg for 4 days (days 2-5) No Action calcium citrate-vitamin D3 [Citracal + D Maximum] 1,500 MG/250 IU tablet 1 tab PO DAILY Qty: 0 melatonin 3 mg tablet 3 mg PO BEDTIME PRN (Reason: sleep) Qty: 90 0RF acidophilus-pectin, citrus 100 million cell-10 mg capsule 1 cap PO DAILY cholecalciferol (vitamin D3) [Vitamin D3] 25 mcg (1,000 unit) capsule 25 mcg PO DAILY CMP Estradiol Vaginal Cream 0.0125% cream 1 g vaginal .COMPLEX Qty: 30 0RF Rx Instructions: 1 g vaginally 1 gram at bedtime x 14 nights then twice per week; albuterol sulfate 90 mcg/actuation HFA aerosol inhaler 2 puff inhalation Q4H PRN (Reason: shortness of breath or wheezing) Qty: 8.5 0RF levothyroxine 25 mcg tablet 25 mcg PO DAILY Qty: 90 3RF magnesium oxide 500 mg capsule 500 mg PO DAILY Citrucel (sucrose) Powder 1 tbsp PO DAILY diclofenac sodium [Voltaren] 1 % gel 2 g topical TID PRN (Reason: Pain, Mild) Rx Instructions: apply to wrist and knees atorvastatin 20 mg tablet 20 mg PO DAILY metoprolol succinate 25 mg tablet extended release 24 hr 12.5 mg PO QPM omega-3 fatty acids-fish oil [Fish Oil] 360-1,200 mg capsule 1 cap PO DAILY omeprazole 20 mg capsule,delayed release(DR/EC) 20 mg PO DAILY estradiol 0.01 % (0.1 mg/gram) cream 0.5 g vaginal QWEEK Qty: 42.5 0RF Slow Fe 142 mg (45 mg iron) tablet extended release 142 mg PO BID Prolia 60 mg/mL syringe 60 mg SUBCUT [id number] fluconazole 150 mg tablet 150 mg PO ONCE Qty: 1 0RF Rx Instructions: as a single dose amoxicillin-pot clavulanate 500-125 mg tablet 1 tab PO BID Qty: 14 0RF losartan 25 mg tablet 12.5 mg PO DAILY Excedrin Migraine 250-250-65 mg Tablet 2 tab PO QAM oxycodone 5 mg tablet 5 mg PO Q6H PRN (Reason: pain) Qty: 8 0RF Referrals: Jose Fitzgerald MD [Primary Care Provider] - Stand Alone Forms: Patient Portal/API/Survey
[2024-05-09] MEDS: ALBUTEROL 2.5 MG/3 ML NEB (ADULT) INH (12:43)
[2024-05-09] MEDS: methylPREDNISolone 125 MG/2 ML VIAL IV (12:43)
== END 2024-05-09 14:04 | disposition home or self-care (01) ==
PROVIDERS: Emergency Provider Emergency Medicine; Family Provider Internal Medicine; PCP Internal Medicine
DX: J45.901 Unspecified asthma with (acute) exacerbation (principal); J18.9 Pneumonia, unspecified organism; R07.89 Other chest pain; I49.9 Cardiac arrhythmia, unspecified; I44.7 Left bundle-branch block, unspecified
CPT/HCPCS: 36415; 71045; 80053; 83605; 83880; 84484; 85025; 85610; 93005; 93010; 94150; 94640; 96374; 99284; J2919; J7613

== ENCOUNTER → 2024-08-10 15:34 | Outpatient (CLI) | payer MEDICARE, SELFPAY ==
[2023-03-20 11:51] VITALS: BMI 25.0
--- NOTE | 2024-08-10 15:35 | DI.MG.S_ITS ---
MM screening mammo BI: 08/10/2024. BI-RADS: 1 CLINICAL: 79-year old female for bilateral screening mammogram. Tyrer-Cuzick lifetime risk of 2.3%. No personal or first-degree family history of breast cancer. PRIOR EXAMS 08/08/2023, 08/06/2022, 08/03/2021, 07/18/2020. MAMMOGRAPHY TECHNIQUE: 2D and 3D (tomosynthesis) digital mammographic views obtained, with additional images as needed for full coverage. Current study was also evaluated with a Computer Aided Detection (CAD) system. DENSITY B. There are scattered areas of fibroglandular density. MAMMOGRAPHY FINDINGS Bilateral: No suspicious mass, asymmetry, microcalcification, or other abnormality seen. No significant change from comparison. IMPRESSION: * No evidence of malignancy. RECOMMENDATIONS Bilateral * Annual screening mammography. OVERALL ASSESSMENT CATEGORY BI-RADS-1: Negative. The [employer] recommends annual screening mammography beginning at age 40 for women with average risk of breast cancer. ELECTRONICALLY SIGNED: Iftikhar Carias M.D. on 08/11/2024 at 10:42:29 AM PT
== END ==
PROVIDERS: Family Provider Internal Medicine; PCP Internal Medicine; Referring Provider Internal Medicine; Visit Provider Internal Medicine
DX: Z12.31 Encounter for screening mammogram for malignant neoplasm of breast (principal)
CPT/HCPCS: 77063; 77067

== ENCOUNTER → 2024-09-22 15:19 | Outpatient (CLI) | payer MEDICARE, SELFPAY ==
[2023-03-20 11:51] VITALS: BMI 25.0
[2024-09-22 16:50] LABS: Alanine Aminotransferase 27 IU/L (<35); Albumin 4.2 g/dL (3.5-5.0); Albumin Globulin Ratio 2.0 (1.0-2.8); Alkaline Phosphatase 47 U/L (38-126); Blood Urea Nitrogen 33 mg/dL (7-17); Calcium 9.7 mg/dL (8.4-10.2); Carbon Dioxide 26 mmol/L (22-32); Chloride 104 mmol/L (98-107); Estimated Glomerular Filt Rate 51 mL/min (>60); Globulin 2.1 g/dL (1.7-4.1); Glucose 84 mg/dL (70-99); HEMOLYSIS < 15 (0-50); Potassium 4.5 mmol/L (3.4-5.1); Sodium 139 mmol/L (137-145); Total Protein 6.3 g/dL (6.3-8.2)
== END ==
PROVIDERS: Family Provider Internal Medicine; PCP Internal Medicine; Referring Provider Internal Medicine; Visit Provider Internal Medicine Cardiovascular Disease
DX: I47.29 Other ventricular tachycardia (principal); I51.9 Heart disease, unspecified
CPT/HCPCS: 36415; 80053

== ENCOUNTER → 2025-01-30 10:03 | Outpatient (CLI) | payer MEDICARE, SELFPAY ==
[2023-03-20 11:51] VITALS: BMI 25.0
[2025-01-30 10:56] LABS: Albumin 4.6 g/dL (3.5-5.0); Blood Urea Nitrogen 20 mg/dL (7-17); Calcium 9.7 mg/dL (8.4-10.2); Carbon Dioxide 26 mmol/L (22-32); Chloride 103 mmol/L (98-107); Estimated Glomerular Filt Rate 59 mL/min (>60); Glucose 88 mg/dL (70-99); HEMOLYSIS < 15 (0-50); Potassium 5.2 mmol/L (3.4-5.1); Sodium 137 mmol/L (137-145)
== END ==
PROVIDERS: Family Provider Internal Medicine; PCP Family Medicine; Referring Provider Internal Medicine Nephrology; Visit Provider Internal Medicine Nephrology
DX: E87.5 Hyperkalemia (principal)
CPT/HCPCS: 36415; 80048; 82040